=== PATIENT | male | born 1985 | race Caucasian/White ===

== ENCOUNTER 2017-02-03 17:17 | Emergency (ER) | payer OTHER ==
[2017-02-03 17:23] VITALS: BP 127/74; PULSE 92; TEMP 98.2; BMI 34.7
--- NOTE | 2017-02-03 17:24 | PDOC ---
Rapid Medical Evaluation Time Seen by Provider: 02/03/17 17:20 Medical Evaluation: 02/03/17 17:20 I have performed a brief in-person evaluation of this patient. The patient presents with a chief complaint of: fever, sore throat and cough x 4 days. Family members w/ similar sxs at home. H/o HTN and seizures Pertinent physical exam findings:Stable w/ unremarkable exam I have ordered the following:nothing The patient will proceed to the ED for further evaluation.
--- NOTE | 2017-02-03 18:30 | PDOC ---
History of Present Illness - General Chief Complaint: Sore Throat Stated Complaint: PAIN/FEVER Time Seen by Provider: 02/03/17 17:20 History Source: Patient Exam Limitations: No Limitations - History of Present Illness Initial Comments: 02/03/17 18:25 31 yr male with c/o sore throat and body aches for 4 days pt states family members with same symptoms. no abd pain no coughing. took tylenol earlier today and theraflu. Timing/Duration: other (3-4 days) Severity: mild Past History - Past Medical History Allergies/Adverse Reactions: Allergies Allergy/AdvReac Type Severity Reaction Status Date / Time Penicillins Allergy Verified 02/03/17 17:24 Home Medications: Ambulatory Orders Azithromycin [Zithromax 250mg Tablets -] 250 mg PO UTDICT #6 tab 02/03/17 COPD: No HTN: Yes Seizures: Yes - Suicide/Smoking/Psychosocial Hx Smoking History: Never smoked Hx Alcohol Use: No Drug/Substance Use Hx: No Review of Systems - Review of Systems Able to Perform ROS?: Yes Is the patient limited Russian proficient: No Constitutional: Yes: Symptoms Reported, Fever HEENTM: Yes: Symptoms Reported, Throat Pain Respiratory: No: Symptoms reported Cardiac (ROS): No: Symptoms Reported ABD/GI: No: Symptoms Reported : No: Symptoms Reported Musculoskeletal: No: Symptoms Reported Integumentary: No: Symptoms Reported Neurological: No: Symptoms reported *Physical Exam - Vital Signs Last Vital Signs Temp Pulse Resp BP Pulse Ox 98.2 F 92 H 20 127/74 99 02/03/17 17:20 02/03/17 17:20 02/03/17 17:20 02/03/17 17:20 02/03/17 17:20 - Physical Exam General Appearance: Yes: Nourished, Appropriately Dressed HEENT: positive: EOMI, ALYSHA, TMs Normal, Pharyngeal Erythema, Tonsillar Erythema. negative: Tonsillar Exudate Neck: positive: Supple, Lymphadenopathy (R) Respiratory/Chest: positive: Lungs Clear, Normal Breath Sounds. negative: Chest Tender Cardiovascular: positive: Regular Rhythm, Regular Rate Gastrointestinal/Abdominal: positive: Normal Bowel Sounds, Soft Musculoskeletal: positive: Normal Inspection Extremity: positive: Normal Capillary Refill, Normal Inspection, Normal Range of Motion Integumentary: positive: Normal Color, Dry, Warm Neurologic: positive: Fully Oriented, Alert, Normal Mood/Affect, Normal Response , Motor Strength 07/10 Medical Decision Making - Medical Decision Making 02/03/17 18:28 cc: sore throat body aches for 4 days diff swallowing family members with same symptoms *DC/Admit/Observation/Transfer Diagnosis at time of Disposition: Strep throat - Discharge Dispostion Disposition: HOME Condition at time of disposition: Good - Prescriptions Prescriptions: Azithromycin [Zithromax 250mg Tablets -] 250 mg PO UTDICT #6 tab - Referrals - Patient Instructions Additional Instructions: gargle with warm salt water 4-5 times a day take the antibiotics as directed take motrin 600mg (over the counter advil, motrin or ibuprofen) as needed for fever and pain avoid sharing cups, utensils, close contacts throw out toothbrush at end of treatment follow with your doctor if any worsening symptoms - Post Discharge Activity
== END 2017-02-03 19:06 | disposition home or self-care (01) ==
LOC: JERFT 17:17
DX: J02.0 Streptococcal pharyngitis (principal); B95.0 Streptococcus, group A, as the cause of diseases classified elsewhere; I10 Essential (primary) hypertension; Z86.69 Personal history of other diseases of the nervous system and sense organs
CPT/HCPCS: 87070; 87430; 99281-25

== ENCOUNTER 2017-04-08 00:14 | Emergency (ER) | payer SELFPAY ==
[2017-04-08 00:50] VITALS: BMI 33.9
--- NOTE | 2017-04-08 01:46 | PDOC ---
History of Present Illness - General Chief Complaint: Pain Stated Complaint: PAIN Time Seen by Provider: 04/08/17 01:30 History Source: Patient Exam Limitations: No Limitations - History of Present Illness Initial Comments: 04/08/17 01:40 The patient is a 31M with a PMH of HTN and seizures who presents to the ER with chest pain. The patient states that he has had constant chest pain since yesterday afternoon which feels like soreness, is located on his L anterior chest, parasternally, is worse with breathing, and radiates to his L clavicle. He was sitting at his desk when the pain onset. It has stayed the same but has been constant. He denies any changes with movement or food. He has not had pain like this before. He denies SOB, fevers, chills, palpitations, lightheadedness. Past History - Past Medical History Allergies/Adverse Reactions: Allergies Allergy/AdvReac Type Severity Reaction Status Date / Time Penicillins Allergy Verified 04/08/17 00:27 Home Medications: Ambulatory Orders Divalproex *ER* [Depakote *ER* -] 500 mg PO TID 04/08/17 Lisinopril 5 mg PO DAILY 04/08/17 Phenobarbital 97.2 mg PO DAILY 04/08/17 COPD: No HTN: Yes Seizures: Yes - Suicide/Smoking/Psychosocial Hx Smoking History: Never smoked Have you smoked in the past 12 months: No Information on smoking cessation initiated: No Hx Alcohol Use: No Drug/Substance Use Hx: No Review of Systems - Review of Systems Able to Perform ROS?: Yes Comments:: 04/08/17 01:44 GENERAL/CONSTITUTIONAL: No fever or chills. No weakness. HEAD, EYES, EARS, NOSE AND THROAT: No change in vision. No ear pain or discharge. No sore throat. CARDIOVASCULAR: Positive for chest soreness. No palpitations or lightheadedness. RESPIRATORY: No cough, wheezing, shortness of breath, or hemoptysis. GASTROINTESTINAL: No nausea, vomiting, diarrhea, constipation, or abdominal pain. GENITOURINARY: No dysuria, frequency, hematuria, or change in urination. MUSCULOSKELETAL: No joint or muscle swelling or pain. No neck or back pain. SKIN: No rash or lesions. NEUROLOGIC: No headache, numbness, tingling, weakness, loss of consciousness, or change in strength/sensation. ENDOCRINE: No increased thirst. No abnormal weight change. HEMATOLOGIC/LYMPHATIC: No anemia, easy bleeding, or history of blood clots. ALLERGIC/IMMUNOLOGIC: No hives or skin allergy. Is the patient limited Peruvian proficient: No *Physical Exam - Vital Signs Last Vital Signs Temp Pulse Resp BP Pulse Ox 98.1 F 85 18 144/86 99 04/08/17 00:27 04/08/17 00:27 04/08/17 00:27 04/08/17 00:27 04/08/17 00:27 - Physical Exam Comments: 04/08/17 01:46 GENERAL: Well developed, well nourished. Awake and alert. No acute distress. HEENT: Normocephalic, atraumatic. Hearing grossly normal. Moist mucous membranes. PERRLA, EOMI. No conjunctival pallor. Sclera are non-icteric. NECK: Supple. Full ROM. No JVD. CARDIOVASCULAR: Reproducible pain and tenderness to palpation over L parasternal border to clavicle. Regular rate and rhythm. No murmurs, rubs, or gallops. PULMONARY: No evidence of respiratory distress. Lungs clear to auscultation bilaterally. No wheezing, rales or rhonchi. ABDOMINAL: Soft. Non-tender. Non-distended. No rebound or guarding. GENITOURINARY: No CVA tenderness bilaterally. MUSCULOSKELETAL: Normal range of motion at all joints. No bony deformities or tenderness. EXTREMITIES: No cyanosis. No clubbing. No edema. No calf tenderness. SKIN: Warm and dry. Normal capillary refill. No rashes. No jaundice. NEUROLOGICAL: Alert, awake, appropriate. Cranial nerves 2-12 intact. Normal speech. Gait is normal without ataxia. PSYCHIATRIC: Cooperative. Good eye contact. Appropriate mood and affect. ED Treatment Course - LABORATORY CBC & Chemistry Diagram: 04/08/17 02:57 04/08/17 02:57 - RADIOLOGY Radiology Studies Ordered: Category Date Time Status CHEST PA & LAT [RAD] Stat Radiology 04/08/17 01:39 Ordered Medical Decision Making - Medical Decision Making 04/08/17 01:48 The patient is a 31M with a PMH of HTN and seizures who presents to the ER with atypical CP. The patient's pain is reproducible on palpation. EKG is NSR. Will order CXR. With an unremarkable physical exam, normal EKG, and normal XR, I will give the patient toradol for pain relief. Pending imaging and labs. 04/08/17 05:35 Pt states he feels a little better and is ready for d/c w/ f/u. *DC/Admit/Observation/Transfer Diagnosis at time of Disposition: Atypical chest pain - Discharge Dispostion Disposition: HOME Condition at time of disposition: Stable Admit: No - Referrals Referrals: Lemuel Gooden MD [Staff Physician] - - Patient Instructions Printed Discharge Instructions: DI for Costochondritis Additional Instructions: Please return to the ER if symptoms persist, worsen, or new symptoms arise. Please follow up with Dr. Gooden in 2-3 days. Please return to the ER if you have any signs or symptoms of chest pain, shortness of breath, uncontrollable fever, chills, nausea, vomiting, numbness, tingling, or weakness in any part of your body, changes in vision, or slurred speech. - Post Discharge Activity
--- NOTE | 2017-04-08 02:31 | PDOC ---
Attending Attestation - Resident Resident Name: Mac Rae
[2017-04-08] MEDS ORDERED: KETOROLAC TROMETHAMINE 30 MG/1 ML VIAL IVPUSH ONE (02:41)
[2017-04-08] MEDS ORDERED: SODIUM CHLORIDE 0.9% 1000 ML INFUS.BAG IV STA (02:47)
[2017-04-08] MEDS ORDERED: KETOROLAC TROMETHAMINE 30 MG/1 ML VIAL ONE (02:48)
[2017-04-08 03:31] LABS: BASO % 0.8 % (0-2.0); EOS % 1.8 % (0-4.5); HEMATOCRIT 40.6 % (35.4-49); HEMOGLOBIN 13.9 GM/dL (11.7-16.9); LYMPH % 43.8 % (8-40); MCH 30.4 pg (25.7-33.7); MCHC 34.1 g/dl (32.0-35.9); MEAN CELL VOLUME 89.1 fl (80-96); MEAN PLT VOLUME 7.9 fl (7.5-11.1); MONO % 8.7 % (3.8-10.2); NEUT % 44.9 % (42.8-82.8); PLATELET COUNT 235 K/MM3 (134-434); RBC 4.56 M/mm3 (4.00-5.60); RDW 14.5 % (11.9-15.9); WHITE BLOOD COUNT 9.4 K/mm3 (4.0-10.0)
[2017-04-08 04:00] LABS: ALBUMIN 3.8 g/dl (3.4-5.0); ANION GAP 5 (8-16); BILIRUBIN,TOTAL 0.2 mg/dL (0.2-1.0); BLOOD UREA NITROGEN 15 mg/dL (7-18); CALCIUM 8.8 mg/dL (8.5-10.1); CHLORIDE 102 mmol/L (98-107); CO2 32 mmol/L (21-32); CREATININE 0.8 mg/dL (0.7-1.3); GLUCOSE,RANDOM 104 mg/dL (74-106); POTASSIUM 4.4 mmol/L (3.5-5.1); SGOT/AST 9 U/L (15-37); SGPT/ALT 22 U/L (12-78); SODIUM 139 mmol/L (136-145); TOT PROT 8.1 g/dl (6.4-8.2)
[2017-04-08 04:03] LABS: ALK PHOS 103 U/L (45-117)
[2017-04-08 05:56] VITALS: BP 120/69; PULSE 78; TEMP 98.2
--- NOTE | 2017-04-08 10:58 | EKG ---
Test Reason : Blood Pressure : / mmHG Vent. Rate : 079 BPM Atrial Rate : 079 BPM P-R Int : 148 ms QRS Dur : 102 ms QT Int : 372 ms P-R-T Axes : 052 052 027 degrees QTc Int : 426 ms NORMAL SINUS RHYTHM NORMAL ECG NO PREVIOUS ECGS AVAILABLE Confirmed by AYLEEN ZHANG MD ([id number]) on 04/08/2017 10:58:42 AM Referred By: Confirmed By:AYLEEN ZHANG MD
== END 2017-04-08 05:56 | disposition home or self-care (01) ==
LOC: JER 00:14
PROC: 3E0333Z Introduction of Anti-inflammatory into Peripheral Vein, Percutaneous Approach (ICD-10-PCS; principal; 2017-04-08)
DX: R07.89 Other chest pain (principal); I10 Essential (primary) hypertension; G40.909 Epilepsy, unspecified, not intractable, without status epilepticus
CPT/HCPCS: 36415; 71046-TC-FY; 80053; 82550; 84484; 85025; 85379; 93005; 93010; 99281-25

== ENCOUNTER 2018-05-17 21:40 | Emergency (ER) | payer OTHER ==
[2018-05-17 21:45] VITALS: BP 133/79; PULSE 83; TEMP 97.5; BMI 35.5
--- NOTE | 2018-05-17 21:45 | PDOC ---
Rapid Medical Evaluation Time Seen by Provider: 05/17/18 21:42 Medical Evaluation: Allergies Allergy/AdvReac Type Severity Reaction Status Date / Time Penicillins Allergy Verified 04/08/17 00:27 05/17/18 21:43 I have performed a brief in-person evaluation of this patient. The patient presents with a chief complaint of:Right sided Chest pain x2 days Pertinent physical exam findings: No chest tenderness. Lungs CTAB. I have ordered the following: ekg, labs, urine, CXR The patient will proceed to the ED for further evaluation. 05/17/18 21:44 Discharge Disposition - Diagnosis Chest pain - Referrals - Patient Instructions - Post Discharge Activity
[2018-05-17 22:12] LABS: BASO % 0.8 % (0-2.0); EOS % 1.9 % (0-4.5); HEMOGLOBIN 14.9 GM/dL (11.7-16.9); LYMPH % 35.4 % (8-40); MCHC 35.6 g/dl (32.0-35.9); MEAN PLT VOLUME 7.6 fl (7.5-11.1); MONO % 7.5 % (3.8-10.2); NEUT % 54.4 % (42.8-82.8); PLATELET COUNT 269 K/MM3 (134-434); RBC 4.82 M/mm3 (4.00-5.60); RDW 13.6 % (11.9-15.9)
[2018-05-17 22:24] LABS: INR 1.01 (0.83-1.09); PROTHROMBIN TIME (PATIENT) 11.9 SEC (9.7-13.0)
[2018-05-17 22:44] LABS: ALBUMIN 3.8 g/dl (3.4-5.0); ALK PHOS 122 U/L (45-117); ANION GAP 7 MMOL/L (8-16); BILIRUBIN,TOTAL 0.4 mg/dL (0.2-1); BLOOD UREA NITROGEN 16 mg/dL (7-18); CHLORIDE 102 mmol/L (98-107); CO2 30 mmol/L (21-32); CREATININE 0.8 mg/dL (0.55-1.3); GLUCOSE,RANDOM 120 mg/dL (74-106); MAGNESIUM 2.2 mg/dL (1.8-2.4); POTASSIUM 4.5 mmol/L (3.5-5.1); SGOT/AST 31 U/L (15-37); SGPT/ALT 51 U/L (13-61); SODIUM 138 mmol/L (136-145); TOT PROT 8.2 g/dl (6.4-8.2)
--- NOTE | 2018-05-18 00:03 | PDOC ---
*Physical Exam - Vital Signs Last Vital Signs Temp Pulse Resp BP Pulse Ox 97.5 F L 83 16 133/79 100 05/17/18 21:43 05/17/18 21:43 05/17/18 21:43 05/17/18 21:43 05/17/18 21:43 ED Treatment Course - LABORATORY CBC & Chemistry Diagram: 05/17/18 22:02 05/17/18 22:02 - ADDITIONAL ORDERS Additional order review: Laboratory Results 05/17/18 05/17/18 22:02 22:02 PT with INR 11.90 INR 1.01 Sodium 138 Potassium 4.5 Chloride 102 Carbon Dioxide 30 Anion Gap 7 L BUN 16 Creatinine 0.8 Creat Clearance w eGFR > 60 Random Glucose 120 H Calcium 9.0 Magnesium 2.2 Total Bilirubin 0.4 AST 31 ALT 51 Alkaline Phosphatase 122 H Creatine Kinase 117 Troponin I < 0.02 Total Protein 8.2 Albumin 3.8 05/17/18 22:02 RBC 4.82 MCV 87.0 MCHC 35.6 RDW 13.6 MPV 7.6 Neutrophils % 54.4 D Lymphocytes % 35.4 Monocytes % 7.5 Eosinophils % 1.9 Basophils % 0.8 Medical Decision Making - Medical Decision Making 05/18/18 00:03 Patient seen by the advanced practice provider under my direct supervision. Ancillary testing reviewed as necessary. I agree with plan as outlined by the advanced practice provider. *DC/Admit/Observation/Transfer Diagnosis at time of Disposition: Chest pain - Referrals - Patient Instructions - Post Discharge Activity
--- NOTE | 2018-05-18 01:01 | PDOC ---
History of Present Illness - General Chief Complaint: Chest Pain Stated Complaint: CHEST PAIN Time Seen by Provider: 05/17/18 21:42 History Source: Patient Exam Limitations: No Limitations Past History - Past Medical History Allergies/Adverse Reactions: Allergies Allergy/AdvReac Type Severity Reaction Status Date / Time Penicillins Allergy Verified 05/17/18 21:46 Home Medications: Ambulatory Orders Divalproex *ER* [Depakote *ER* -] 500 mg PO TID 04/08/17 Lisinopril 5 mg PO DAILY 04/08/17 Phenobarbital 97.2 mg PO DAILY 04/08/17 COPD: No HTN: Yes Seizures: Yes - Immunization History Immunization Up to Date: Yes - Suicide/Smoking/Psychosocial Hx Smoking History: Never smoked Have you smoked in the past 12 months: No Information on smoking cessation initiated: No Hx Alcohol Use: No Drug/Substance Use Hx: No *Physical Exam - Vital Signs Last Vital Signs Temp Pulse Resp BP Pulse Ox 97.5 F L 83 16 133/79 100 05/17/18 21:43 05/17/18 21:43 05/17/18 21:43 05/17/18 21:43 05/17/18 21:43 - Physical Exam General Appearance: No: Apparent Distress Respiratory/Chest: positive: Lungs Clear, Normal Breath Sounds. negative: Chest Tender, Respiratory Distress Cardiovascular: positive: Regular Rhythm, Regular Rate, S1, S2. negative: Murmur Gastrointestinal/Abdominal: positive: Normal Bowel Sounds, Soft. negative: Tender, Distended, Guarding, Rebound Extremity: negative: Pedal Edema, Calf Tenderness Integumentary: positive: Normal Color. negative: Swelling Neurologic: positive: Fully Oriented, Alert, Normal Mood/Affect Moderate Sedation - Procedure Monitoring Vital Signs: Procedure Monitoring Vital Signs Temperature 97.5 F L 05/17/18 21:43 Pulse Rate 83 05/17/18 21:43 Respiratory Rate 16 05/17/18 21:43 Blood Pressure 133/79 05/17/18 21:43 O2 Sat by Pulse Oximetry (%) 100 05/17/18 21:43 ED Treatment Course - LABORATORY CBC & Chemistry Diagram: 05/17/18 22:02 05/17/18 22:02 - ADDITIONAL ORDERS Additional order review: Laboratory Results 05/17/18 05/17/18 22:02 22:02 PT with INR 11.90 INR 1.01 Sodium 138 Potassium 4.5 Chloride 102 Carbon Dioxide 30 Anion Gap 7 L BUN 16 Creatinine 0.8 Creat Clearance w eGFR > 60 Random Glucose 120 H Calcium 9.0 Magnesium 2.2 Total Bilirubin 0.4 AST 31 ALT 51 Alkaline Phosphatase 122 H Creatine Kinase 117 Troponin I < 0.02 Total Protein 8.2 Albumin 3.8 05/17/18 22:02 RBC 4.82 MCV 87.0 MCHC 35.6 RDW 13.6 MPV 7.6 Neutrophils % 54.4 D Lymphocytes % 35.4 Monocytes % 7.5 Eosinophils % 1.9 Basophils % 0.8 Medical Decision Making - Medical Decision Making 32 y/o M with hx of sciatica, seizures, HTN presents with sharp/stabbing CP that started yesterday at rest. States pain can be R sided or L sided and is nonradiating. Pain is intermittent in nature and not worsened or relieved by anything. Pain can be worse with inspiration. Denies fever, URI sxs, cough, sob , abd pain, n/v, dizziness, palpitations. Denies smoking or drug use. Mentions his mother had ID at age 60 EKG: NSR 83 bpm, no ST-T changes CXR wet read negative Labs reviewed and unremarkable PERC negative Unlikely ACS (patient with heart score of 1) Stable for dc 05/18/18 00:57 *DC/Admit/Observation/Transfer Diagnosis at time of Disposition: Chest pain Qualifiers: Chest pain type: other chest pain Qualified Code(s): R07.89 - Other chest pain ; R07.8 - Other chest pain - Discharge Dispostion Disposition: HOME Condition at time of disposition: Stable Decision to Admit order: No - Referrals Referrals: Porter Black MD [Staff Physician] - 2 Days - Patient Instructions Printed Discharge Instructions: DI for Chest Pain Additional Instructions: Thank you for choosing Health system. It was a pleasure taking care of you. Your labs, EKG and chest xray were unremarkable Follow-up in primary care clinic for further evaluation Return to the Emergency Department if your symptoms worsen or persist or have other concerning symptoms. - Post Discharge Activity
--- NOTE | 2018-05-18 11:05 | EKG ---
Test Reason : Blood Pressure : / mmHG Vent. Rate : 083 BPM Atrial Rate : 083 BPM P-R Int : 158 ms QRS Dur : 112 ms QT Int : 364 ms P-R-T Axes : 065 061 038 degrees QTc Int : 427 ms NORMAL SINUS RHYTHM NORMAL ECG WHEN COMPARED WITH ECG OF 08-APR-2017 01:40, NO SIGNIFICANT CHANGE WAS FOUND Confirmed by BRIELLE GASCA MD ([id number]) on 05/18/2018 11:04:58 AM Referred By: Confirmed By:BRIELLE GASCA MD
== END 2018-05-18 01:24 | disposition home or self-care (01) ==
LOC: JER 21:40
DX: R07.89 Other chest pain (principal); I10 Essential (primary) hypertension; G40.909 Epilepsy, unspecified, not intractable, without status epilepticus; Z88.0 Allergy status to penicillin
CPT/HCPCS: 36415; 71046-TC-FY; 80053; 82550; 83735; 84484; 85025; 85610; 93005; 93010; 99283-25

== ENCOUNTER 2018-10-12 20:45 | Emergency (ER) | payer OTHER ==
[2018-10-12 20:49] VITALS: BP 144/92; PULSE 72; TEMP 97.7; BMI 33.9
--- NOTE | 2018-10-12 22:12 | PDOC ---
History of Present Illness - General Chief Complaint: Pain Stated Complaint: abdominal discomfort radiating to testicles Time Seen by Provider: 10/12/18 20:59 History Source: Patient Exam Limitations: No Limitations - History of Present Illness Initial Comments: 10/12/18 22:32 33M w/ pmh of HTN(stopped taking his lisinopril), seizures(last seizure 12ys prior, stopped meds 2ys prior) presents w/ complaint of diffuse crampy abdominal discomfort 5/10 severity with radiation to b/l testicles x3d. Was concerned that this discomfort did not improve. Pain is worse in the morning when waking up and with prolonged sitting. Improved after walking and taking ASA. Denies dysuria, urinary frequency, penile discharge, abdominal bulge, groin bulge, NV. Last intercourse was 2ys prior, was nonbarrier with at the time. Denies masturbation in last 2ys. Denies h/o STD. Timing/Duration: other (3d) Severity: mild Associated Symptoms: denies: chest pain, cough Past History - Travel Traveled outside of the country in the last 30 days: No Close contact w/someone who was outside of country & ill: No - Past Medical History Allergies/Adverse Reactions: Allergies Allergy/AdvReac Type Severity Reaction Status Date / Time Penicillins Allergy Verified 10/12/18 20:49 Home Medications: Ambulatory Orders Divalproex *ER* [Depakote *ER* -] 500 mg PO TID 04/08/17 Lisinopril 5 mg PO DAILY 04/08/17 Phenobarbital 97.2 mg PO DAILY 04/08/17 COPD: No HTN: Yes Seizures: Yes - Surgical History Abdominal Surgery: No - Family Disease History Comment:: 10/12/18 22:38 noncontributory to current symptoms - Immunization History Immunization Up to Date: Yes - Suicide/Smoking/Psychosocial Hx Smoking History: Never smoked Have you smoked in the past 12 months: No Hx Alcohol Use: No Drug/Substance Use Hx: No Review of Systems - Review of Systems Able to Perform ROS?: Yes Is the patient limited Burmese proficient: No Constitutional: Yes: Other (weight loss with diet ). No: Chills, Diaphoresis, Fever Respiratory: No: Cough, Orthopnea, Shortness of Breath Cardiac (ROS): No: Chest Pain, Irregular Heart Rate, Palpitations ABD/GI: Yes: Abdominal Distended. No: Constipated, Diarrhea, Nausea, Poor Appetite : No: Burning, Dysuria, Hematuria, Pain Musculoskeletal: No: Muscle Weakness Neurological: No: Headache, Dizziness *Physical Exam - Vital Signs Last Vital Signs Temp Pulse Resp BP Pulse Ox 97.7 F 72 18 144/92 99 10/12/18 20:47 10/12/18 20:47 10/12/18 20:47 10/12/18 20:47 10/12/18 20:47 - Physical Exam General Appearance: Yes: Obese. No: Appropriately Dressed, Apparent Distress HEENT: negative: Pale Conjunctivae, Scleral Icterus (R), Scleral Icterus (L) Neck: positive: Supple. negative: Lymphadenopathy (R), Lymphadenopathy (L) Respiratory/Chest: positive: Lungs Clear, Normal Breath Sounds Cardiovascular: positive: Regular Rate, S1, S2. negative: JVD, Murmur Gastrointestinal/Abdominal: positive: Soft, Protuberent, Other (illicits "discomfort"). negative: Tenderness, Mass Male Genitalia: positive: other (brisk Cremaster reflex, no perineal tenderness) . negative: testicular tenderness, testicular mass, epididymus tender, inguinal hernia Lymphatic: negative: Adenopathy Extremity: negative: Swelling, Calf Tenderness Neurologic: positive: Fully Oriented, Alert ED Treatment Course - LABORATORY CBC & Chemistry Diagram: 10/12/18 22:10 10/12/18 22:10 - RADIOLOGY Radiology Studies Ordered: Category Date Time Status SPIRAL- RENAL-STONE CT [CT] Stat CT Scan 10/12/18 21:58 Ordered Medical Decision Making - Medical Decision Making 10/12/18 22:44 33M w/ pmh of HTN, seizures presenting with diffuse abdominal "discomfortness" in abd and testicles. Benign exam but possible early nephrolithiasis, UTI, STI, hernia. - fu CT spiral abd to r/o nephrolithiasis - fu CBC, CMP, UA 10/13/18 02:51 - CT spiral: neg for nephrolithiasis. 2.5cm hyperdensity of Right lobe of liver. Rad recommending liver protocol MRI - UA neg - CBC, CMP neg - US scrotum: neg for testicular torsion, unremarkable epididymides, b/l hydroceles - patient stable for discharge w/ close interval fu for liver lesion *DC/Admit/Observation/Transfer Diagnosis at time of Disposition: Liver mass - Discharge Dispostion Disposition: HOME Condition at time of disposition: Good - Referrals Referrals: [facility] [place] [facility] [place] [Provider Group] - Patient Instructions Printed Discharge Instructions: DI for Prescription Opioid Use Additional Instructions: Your workup today showed a mass on your liver that requires further imaging. Please follow up with the primary care physician below tomorrow morning. You can call to make an appointment or walk-in. Please return to the ED if you have any new, worsening or concerning symptoms, especially increasing pain, fever and vomiting. - Post Discharge Activity
[2018-10-12 22:23] LABS: BASO % 0.9 % (0-2.0); EOS % 1.9 % (0-4.5); HEMATOCRIT 41.9 % (35.4-49); HEMOGLOBIN 14.4 GM/dL (11.7-16.9); LYMPH % 41.6 % (8-40); MCH 29.9 pg (25.7-33.7); MCHC 34.3 g/dl (32.0-35.9); MEAN CELL VOLUME 87.3 fl (80-96); MEAN PLT VOLUME 7.2 fl (7.5-11.1); MONO % 9.6 % (3.8-10.2); PLATELET COUNT 284 K/MM3 (134-434); RBC 4.79 M/mm3 (4.00-5.60); RDW 13.4 % (11.9-15.9); WHITE BLOOD COUNT 8.2 K/mm3 (4.0-10.0)
[2018-10-12 22:52] LABS: ALBUMIN 4.2 g/dl (3.4-5.0); BILIRUBIN,TOTAL 0.5 mg/dL (0.2-1); BLOOD UREA NITROGEN 5.1 mg/dL (7-18); CALCIUM 9.7 mg/dL (8.5-10.1); CREATININE 0.7 mg/dL (0.55-1.3); POTASSIUM 4.2 mmol/L (3.5-5.1); TOT PROT 8.4 g/dl (6.4-8.2)
[2018-10-13 00:02] LABS: PH,URINE 6.5 (5.0-8.0); URINE APPEARANCE CLEAR; URINE BILIRUBIN NEGATIVE (NEGATIVE); URINE COLOR YELLOW; URINE GLUCOSE (UA) NEGATIVE (NEGATIVE); URINE KETONE NEGATIVE (NEGATIVE); URINE LEUK ESTERASE NEGATIVE (NEGATIVE); URINE NITRITE NEGATIVE (NEGATIVE); URINE PROTEIN NEGATIVE (NEGATIVE); URINE UROBILINOGEN 0.2 mg/dL (0.2-1.0)
--- NOTE | 2018-10-13 00:51 | PDOC ---
Documentation entered by Garret Brown SCRIBE, acting as scribe for Cindy Ordoñez DO. Cindy Ordoñez DO: This documentation has been prepared by the Kevin sapp Aiswarya, SCRIBE, under my direction and personally reviewed by me in its entirety. I confirm that the documentation accurately reflects all work, treatment, procedures, and medical decision making performed by me. Attending Attestation - Resident Resident Name: HugoJac - ED Attending Attestation I have performed the following: I have examined & evaluated the patient, The case was reviewed & discussed with the resident, I agree w/resident's findings & plan - HPI HPI: 10/12/18 23:31 The patient is a 33 year old male, with a significant PMH of seizures and HTN, who presents to the emergency department with diffuse abdominal pain that began 3 days ago. The patient states intermittent abdominal pain radiates down to the testicles with a severity of 5/10. The patient denies chest pain, shortness of breath, headache and dizziness. Denies prior testicular pain. Allergies:Penicillin Past surgical history: None reported Social history: None reported PCP: None reported - Physicial Exam PE: 10/12/18 23:31 Agrees with residents PE - Medical Decision Making 10/13/18 02:52 33 yo male with abd fullness and testicular pain CT abd/pelvis shows liver lesion, possible mass US scrotum negative for sig abnormalities pt set up for prompt OP follow up in the clinic in the morning pt advised he will need an MRI for further evaluation and agrees to follow up as discussed
--- NOTE | 2018-10-13 02:33 | PDOC ---
*Physical Exam - Vital Signs Last Vital Signs Temp Pulse Resp BP Pulse Ox 97.7 F 72 18 144/92 99 10/12/18 20:47 10/12/18 20:47 10/12/18 20:47 10/12/18 20:47 10/12/18 20:47 ED Treatment Course - LABORATORY CBC & Chemistry Diagram: 10/12/18 22:10 10/12/18 22:10 - ADDITIONAL ORDERS Additional order review: Laboratory Results 10/12/18 10/12/18 10/12/18 23:45 22:10 22:10 Sodium 140 Potassium 4.2 Chloride 104 Carbon Dioxide 32 Anion Gap 4 L BUN 5.1 L Creatinine 0.7 Est GFR (CKD-EPI)AfAm 142.70 Est GFR (CKD-EPI)NonAf 123.13 Random Glucose 95 Calcium 9.7 Total Bilirubin 0.5 AST 36 ALT 67 H Alkaline Phosphatase 117 Total Protein 8.4 H Albumin 4.2 Lipase 110 Urine Color Yellow Urine Appearance Clear Urine pH 6.5 Ur Specific [place] 1.007 L Urine Protein Negative Urine Glucose (UA) Negative Urine Ketones Negative Urine Blood Negative Urine Nitrite Negative Urine Bilirubin Negative Urine Urobilinogen 0.2 Ur Leukocyte Esterase Negative 10/12/18 22:10 RBC 4.79 MCV 87.3 MCHC 34.3 RDW 13.4 MPV 7.2 L Neutrophils % 46.0 Lymphocytes % 41.6 H Monocytes % 9.6 Eosinophils % 1.9 Basophils % 0.9 Medical Decision Making - Medical Decision Making 10/13/18 02:30 Discussed plan to follow up liver mass with patient, as he does not have pcp and inpatient admission is not necessary. Importance of follow up stressed. Patient has outpatient insurance and will be able to get done as an outpatient, will walk in to clinic tomorrow. Given return precautions. Will discharge. *DC/Admit/Observation/Transfer Diagnosis at time of Disposition: Liver mass - Discharge Dispostion Disposition: HOME Condition at time of disposition: Good Decision to Admit order: No - Referrals Referrals: [facility] [place] [Provider Group] - Patient Instructions Additional Instructions: Your workup today showed a mass on your liver that requires further imaging. Please follow up with the primary care physician below tomorrow morning. You can call to make an appointment or walk-in. Please return to the ED if you have any new, worsening or concerning symptoms, especially increasing pain, fever and vomiting. - Post Discharge Activity
== END 2018-10-13 02:46 | disposition home or self-care (01) ==
LOC: JER 20:45
DX: R16.0 Hepatomegaly, not elsewhere classified (principal); I10 Essential (primary) hypertension; Z86.69 Personal history of other diseases of the nervous system and sense organs; Z91.14 Patient's other noncompliance with medication regimen
CPT/HCPCS: 36415; 74176-TC; 76870-TC; 80053; 81003; 83690; 85025; 87086; 87491; 87591; 99283-25

== ENCOUNTER 2019-12-06 11:21 | Day surgery (SDC) | payer OTHER ==
--- OUTSIDE RECORDS SUMMARY | 2019-11-22 09:26 | XMS ---
:1985 Author Organization [facility] Care Team Providers Name Role Phone Androne, Chari S Unavailable Unavailable Androne, S Unavailable Unavailable Androne, S Unavailable Unavailable Androne, S Unavailable Unavailable Androne, S Unavailable Unavailable Androne, S Unavailable Unavailable Androne, S Unavailable Unavailable Androne, S Unavailable Unavailable Erosa Unavailable Erosa Unavailable Lufrano Unavailable Unavailable Lufrano Unavailable Unavailable Lufrano Unavailable Unavailable Lufrano Unavailable Unavailable Lufrano Unavailable Unavailable Lufrano Unavailable Unavailable Lufrano Unavailable Unavailable Re-disclosure Warning The records that you are about to access may contain information from federally- assisted alcohol or drug abuse programs. If such information is present, then the following federally mandated warning applies: This information has been disclosed to you from records protected by federal confidentiality rules (42 CFR part 2). The federal rules prohibit you from making any further disclosure of this information unless further disclosure is expressly permitted by the written consent of the person to whom it pertains or as otherwise permitted by 42 CFR part 2. A general authorization for the release of medical or other information is NOT sufficient for this purpose. The Federal rules restrict any use of the information to criminally investigate or prosecute any alcohol or drug abuse patient.The records that you are about to access may contain highly sensitive health information, the redisclosure of which is protected by Article 27-F of the [facility] Public Health law. If you continue you may haveaccess to information: Regarding HIV / AIDS; Provided by facilities licensed or operated by the [facility] Office of Mental Health; or Provided by the [facility] Office for People With Developmental Disabilities. If such information is present, then the following [facility] mandated warning applies: This information has been disclosed to you from confidential records which are protected by state law. State law prohibits you from making any further disclosure of this information without the specific written consent of the person to whom it pertains, or as otherwise permitted by law. Any unauthorized further disclosure in violation of state law may result in a fine or halfway sentence or both. A general authorization for the release of medical or other information is NOT sufficient authorization for further disclosure. Allergies and Adverse Reactions Type Description Substance Reaction Status Data Source(s ) Drug allergy penicillin Penicillin G Active [facility] ([facility], ) Encounters Encounter Providers Location Date Indications Data Source(s ) Attender: Elba 11/20/2019 [facility] ([facility] frano 12:00:00 AM EDT Medical, ) Office Attender: Elba Pastrana 11/20/2019 12:00:00 AM EDT [facility] ([facility]) Office Attender: Elba Pastrana 11/20/2019 12:00:00 AM EDT [facility] ([facility]) Office Attender: Higinio Ghosh 10/26/2019 12:00:00 AM EDT [facility] ([place]) Office Attender: Chari Andshahida 10/25/2019 12:00:00 AM ED T [facility] ([facility], ) Office Attender: Chari Androne 10/25/2019 12:00:00 AM ED T [facility] ([place], ) Office Attender: Chari Androne 10/25/2019 12:00:00 AM ED T [facility] ([facility], ) Office Attender: Chari Androne 10/25/2019 12:00:00 AM ED T [facility] ([facility], ) Office Attender: Chari Androne 09/06/2019 12:00:00 AM ED T [facility] ([facility]) Office Attender: Chari Androne 09/06/2019 12:00:00 AM ED T [facility] ([facility]) Office Attender: Chari Androne 09/06/2019 12:00:00 AM ED T [facility] ([facility]) Office Attender: Chari Androne 09/06/2019 12:00:00 AM ED T [facility] ([facility]) Office Attender: Chari Androne 09/06/2019 12:00:00 AM ED T [facility] ([facility]) Office Attender: Chari Androne 08/23/2019 12:00:00 AM ED T [facility] ([facility]) Office Attender: Chari Androne 08/23/2019 12:00:00 AM ED T [facility] ([facility]) Office Attender: Chari Androne 08/23/2019 12:00:00 AM ED T [facility] ([facility]) Office Attender: Chari Androne 08/23/2019 12:00:00 AM ED T [facility] ([facility]) Office Attender: Chari Androne 08/23/2019 12:00:00 AM ED T [facility] ([facility]) Office Medications Medication Brand Start Product Dose Route Administrative Pharmacy [facility] Indications Reaction Description Data Name Date Form Instructions Instructions Source(s) pantoprazol PROTON 11/19/ DELAYED 30 complet PRO TONIX [facility] (St e 40 MG IX:[id number] 2019 RELEASE [facility] Delayed 400 12:00: TABLET Medical, Release 00 AM ) Oral Tablet EDT [Protonix] PROTONIX:28 4400 CLOBETASOL complet CLOBETASO L [facility] (St [facility]IONATE 2019 ed [facility] EXTERNAL 12:00: EXTERNAL Medic al, CREAM: 00 AM CREAM ) EDT CLOBETASOL complet CLOBETASO L [facility] (St PROPIONATE 2019 ed PROPIONATE [facility] n's EXTERNAL 12:00: EXTERNAL Medic al, CREAM: 00 AM CREAM ) EDT CLOBETASOL complet CLOBETASO L [facility] (St PROPIONATE 2019 ed PROPIONATE [facility] EXTERNAL 12:00: EXTERNAL Medic al, CREAM: 00 AM CREAM PC) EDT CLOBETASOL complet CLOBETASO L [facility] (St PROPIONATE 2019 ed PROPIONATE [facility] EXTERNAL 12:00: EXTERNAL Medic al, CREAM: 00 AM CREAM PC) EDT CLOBETASOL complet CLOBETASO L [facility] (St PROPIONATE 2019 ed PROPIONATE [facility] EXTERNAL 12:00: EXTERNAL Medic al, CREAM: 00 AM CREAM PC) EDT Insurance Providers Payer name Policy type Policy ID Covered Covered libertarian's Policy P nico / Coverage libertarian ID relationship to [place] Inf ormation type solano ROMAYOR [id number] 1 [id number] HEALTHCARE COMMUNITY PLAN [facility] [id number] HEALTHCARE COMMUNITY PLAN [place] MEDICA[place] OF [id number] [place] [id number] SP [id number] [place] [id number] SP [id number] HEALTHCARE PPO [place] MEDICAID [id number] SP [id number] [facility] PLAN [facility] [id number] CARE [facility] [id number] SP [id number] CARE HMO/POS/EPO SELF PAY SP [place]UR[place] [id number] SP [id number] [place] [id number] SP [id number] Problems, Conditions, and Diagnoses Code Display Name Description Problem Effective Data Type Dates Source(s) R10.13 Epigastric pain EPIGASTRIC PAIN Problem 11/20/2019 MEDG EN (St 12:00:00 AM [facility], ) M54.16 Radiculopathy, lumbar RADICULOPATHY, LUMBAR Problem [facility] ( region REGION 12:00:00 AM [facility], ) M54.16 Radiculopathy, lumbar RADICULOPATHY, LUMBAR Problem [facility] ( region REGION 12:00:00 AM [facility], ) E83.52 Hypercalcemia HYPERCALCEMIA Problem 10/25/2019 [facility] ( St 12:00:00 AM [facility], ) M54.5 Low back pain LOW BACK PAIN Problem 10/25/2019 [facility] ( St 12:00:00 AM [facility], ) K21.9 Gastro-esophageal GASTRO-ESOPHAGEAL Problem 10/25/2019 [facility] (St reflux disease REFLUX DISEASE 12:00:00 AM Rai' s without esophagitis WITHOUT ESOPHAGITIS [facility], ) I10 Essential (primary) ESSENTIAL (PRIMARY) Problem [facility] (St hypertension HYPERTENSION 12:00:00 AM [facility]) E83.52 Hypercalcemia HYPERCALCEMIA Problem 10/25/2019 [facility] ( St 12:00:00 AM [facility], ) M54.5 Low back pain LOW BACK PAIN Problem 10/25/2019 [facility] ( St 12:00:00 AM [facility], ) K21.9 Gastro-esophageal GASTRO-ESOPHAGEAL Problem 10/25/2019 [facility] (St reflux disease REFLUX DISEASE 12:00:00 AM Rai' s without esophagitis WITHOUT ESOPHAGITIS [facility], ) I10 Essential (primary) ESSENTIAL (PRIMARY) Problem [facility] (St hypertension HYPERTENSION 12:00:00 AM [facility], ) E83.52 Hypercalcemia HYPERCALCEMIA Problem 10/25/2019 [facility] ( St 12:00:00 AM [facility], ) M54.5 Low back pain LOW BACK PAIN Problem 10/25/2019 [facility] ( St 12:00:00 AM [facility], ) K21.9 Gastro-esophageal GASTRO-ESOPHAGEAL Problem 10/25/2019 [facility] (St reflux disease REFLUX DISEASE 12:00:00 AM Rai' s without esophagitis WITHOUT ESOPHAGITIS [facility], ) I10 Essential (primary) ESSENTIAL (PRIMARY) Problem [facility] (St hypertension HYPERTENSION 12:00:00 AM [facility]) R94.31 Abnormal ABNORMAL Problem 09/06/2019 [facility] (St electrocardiogram ELECTROCARDIOGRAM 12:00:00 AM [facility] [ECG] [EKG] [ECG] [EKG] [facility]) M79.675 Pain in left toe(s) PAIN IN LEFT TOE(S) Problem [facility] (St 12:00:00 AM [facility]) M79.674 Pain in right toe(s) PAIN IN RIGHT TOE(S) Problem 09/05 [facility] (St 12:00:00 AM [facility], ) K76.0 Fatty (change of) FATTY (CHANGE OF) Problem 09/06/2019 [facility] (St liver, not elsewhere LIVER, NOT ELSEWHERE 12:00 :00 AM [facility] classified [facility], ) E78.5 Hyperlipidemia, HYPERLIPIDEMIA, Problem 09/06/2019 MEDG EN (St unspecified UNSPECIFIED 12:00:00 AM [facility], ) L60.0 Ingrowing nail INGROWIN NAIL Problem 09/06/2019 [facility] (St 12:00:00 AM [facility]) G47.30 Sleep apnea, SLEEP APNEA, Problem 09/06/2019 [facility] (St unspecified UNSPECIFIED 12:00:00 AM [facility]) R94.31 Abnormal ABNORMAL Problem 09/06/2019 [facility] (St electrocardiogram ELECTROCARDIOGRAM 12:00:00 AM [facility] [ECG] [EKG] [ECG] [EKG] [facility], ) M79.675 Pain in left toe(s) PAIN IN LEFT TOE(S) Problem 020 [facility] (St 12:00:00 AM [facility]) M79.674 Pain in right toe(s) PAIN IN RIGHT TOE(S) Problem 09/05 [facility] (St 12:00:00 AM [facility], ) K76.0 Fatty (change of) FATTY (CHANGE OF) Problem 09/06/2019 [facility] (St liver, not elsewhere LIVER, NOT ELSEWHERE 12:00 :00 AM Rai classified [facility], ) E78.5 Hyperlipidemia, HYPERLIPIDEMIA, Problem 09/06/2019 MEDG EN (St unspecified UNSPECIFIED 12:00:00 AM [facility]) L60.0 Ingrowing nail INGROWIN NAIL Problem 09/06/2019 [facility] (St 12:00:00 AM [facility], ) G47.30 Sleep apnea, SLEEP APNEA, Problem 09/06/2019 MED[facility] (St unspecified UNSPECIFIED 12:00:00 AM [facility]) R94.31 Abnormal ABNORMAL Problem 09/06/2019 [facility] (St electrocardiogram ELECTROCARDIOGRAM 12:00:00 AM Rai's [ECG] [EKG] [ECG] [EKG] [facility], ) M79.675 Pain in left toe(s) PAIN IN LEFT TOE(S) Problem 020 [facility] (St 12:00:00 AM [facility], ) M79.674 Pain in right toe(s) PAIN IN RIGHT TOE(S) Problem 09/05 [facility] (St 12:00:00 AM [facility], ) K76.0 Fatty (change of) FATTY (CHANGE OF) Problem 09/06/2019 [facility] (St liver, not elsewhere LIVER, NOT ELSEWHERE 12:00 :00 AM [facility] classified CLASSIFIED [facility], ) E78.5 Hyperlipidemia, HYPERLIPIDEMIA, Problem 09/06/2019 MEDG EN (St unspecified UNSPECIFIED 12:00:00 AM [facility], ) L60.0 Ingrowing nail INGROWIN NAIL Problem 09/06/2019 [facility] (St 12:00:00 AM [facility], ) G47.30 Sleep apnea, SLEEP APNEA, Problem 09/06/2019 [facility] (St unspecified UNSPECIFIED 12:00:00 AM [facility], ) R94.31 Abnormal ABNORMAL Problem 09/06/2019 [facility] (St electrocardiogram ELECTROCARDIOGRAM 12:00:00 AM [facility] [ECG] [EKG] [ECG] [EKG] [facility], ) M79.675 Pain in left toe(s) PAIN IN LEFT TOE(S) Problem 020 [facility] (St 12:00:00 AM [facility], ) M79.674 Pain in right toe(s) PAIN IN RIGHT TOE(S) Problem 09/05 [facility] (St 12:00:00 AM [facility], ) K76.0 Fatty (change of) FATTY (CHANGE OF) Problem 09/06/2019 [facility] (St liver, not elsewhere LIVER, NOT ELSEWHERE 12:00 :00 AM Rai classified [facility], ) E78.5 Hyperlipidemia, HYPERLIPIDEMIA, Problem 09/06/2019 MEDG EN (St unspecified UNSPECIFIED 12:00:00 AM [facility], ) L60.0 Ingrowing nail INGROWIN NAIL Problem 09/06/2019 [facility] (St 12:00:00 AM [facility], ) G47.30 Sleep apnea, SLEEP APNEA, Problem 09/06/2019 [facility] (St unspecified UNSPECIFIED 12:00:00 AM [facility], ) R94.31 Abnormal ABNORMAL Problem 09/06/2019 [facility] (St electrocardiogram ELECTROCARDIOGRAM 12:00:00 AM [facility] [ECG] [EKG] [ECG] [EKG] [facility], ) M79.675 Pain in left toe(s) PAIN IN LEFT TOE(S) Problem 020 [facility] (St 12:00:00 AM [facility], ) M79.674 Pain in right toe(s) PAIN IN RIGHT TOE(S) Problem 09/05 [facility] (St 12:00:00 AM [facility], ) K76.0 Fatty (change of) FATTY (CHANGE OF) Problem 09/06/2019 [facility] (St liver, not elsewhere LIVER, NOT ELSEWHERE 12:00 :00 AM [facility], ) E78.5 Hyperlipidemia, HYPERLIPIDEMIA, Problem 09/06/2019 MEDG EN (St unspecified UNSPECIFIED 12:00:00 AM [facility], ) L60.0 Ingrowing nail INGROWIN NAIL Problem 09/06/2019 MED[facility] (St 12:00:00 AM [facility], ) G47.30 Sleep apnea, SLEEP APNEA, Problem 09/06/2019 MED[facility] (St unspecified UNSPECIFIED 12:00:00 AM [facility], ) M79.675 Pain in left toe(s) PAIN IN LEFT TOE(S) Problem 020 [facility] (St 12:00:00 AM [facility], ) M79.674 Pain in right toe(s) PAIN IN RIGHT TOE(S) Problem 09/05 [facility] (St 12:00:00 AM [facility], ) L60.0 Ingrowing nail INGROWIN NAIL Problem 09/06/2019 [facility] (St 12:00:00 AM [facility], ) E66.3 Overweight OVERWEIGHT Problem 08/23/2019 MED[facility] (St 12:00:00 AM Rai's EDT [facility], ) G40.89 Other seizures OTHER SEIZURES Problem 08/23/2019 MED[facility] (St 12:00:00 AM Rai's EDT [facility], ) R21 Rash and other RASH AND OTHER Problem 08/23/2019 MED[facility] (St nonspecific skin NONSPECIFIC SKIN 12:00:00 AM J ohn's eruption ERUPTION EDT Medical, ) R10.10 Upper abdominal pain, UPPER ABDOMINAL PAIN, Problem [facility] (St unspecified UNSPECIFIED 12:00:00 AM Rai's EDT [facility], ) E66.3 Overweight OVERWEIGHT Problem 08/23/2019 MED[facility] (St 12:00:00 AM Rai's EDT [facility], ) G40.89 Other seizures OTHER SEIZURES Problem 08/23/2019 [facility] (St 12:00:00 AM Rai's EDT [facility], ) R21 Rash and other RASH AND OTHER Problem 08/23/2019 MED[facility] (St nonspecific skin NONSPECIFIC SKIN 12:00:00 AM J ohn's eruption ERUPTION EDT Medical, ) R10.10 Upper abdominal pain, UPPER ABDOMINAL PAIN, Problem [facility] (St unspecified UNSPECIFIED 12:00:00 AM Rai's EDT [facility], ) E66.3 Overweight OVERWEIGHT Problem 08/23/2019 [facility] (St 12:00:00 AM Rai's EDT Medical, ) G40.89 Other seizures OTHER SEIZURES Problem 08/23/2019 [facility] (St 12:00:00 AM Rai's EDT [facility], ) R21 Rash and other RASH AND OTHER Problem 08/23/2019 MED[facility] (St nonspecific skin NONSPECIFIC SKIN 12:00:00 AM J ohn's eruption ERUPTION EDT Medical, ) R10.10 Upper abdominal pain, UPPER ABDOMINAL PAIN, Problem [facility] (St unspecified UNSPECIFIED 12:00:00 AM Rai's EDT [facility], ) E66.3 Overweight OVERWEIGHT Problem 08/23/2019 MED[facility] (St 12:00:00 AM Rai's EDT [facility], ) G40.89 Other seizures OTHER SEIZURES Problem 08/23/2019 [facility] (St 12:00:00 AM [facility] EDT [facility], ) R21 Rash and other RASH AND OTHER Problem 08/23/2019 MED[facility] (St nonspecific skin NONSPECIFIC SKIN 12:00:00 AM J ohn's eruption ERUPTION EDT Medical, ) R10.10 Upper abdominal pain, UPPER ABDOMINAL PAIN, Problem MED[facility] (St unspecified UNSPECIFIED 12:00:00 AM Rai's EDT [facility], ) E66.3 Overweight OVERWEIGHT Problem 08/23/2019 MED[facility] (St 12:00:00 AM Rai's EDT [facility], ) G40.89 Other seizures OTHER SEIZURES Problem 08/23/2019 [facility] (St 12:00:00 AM Rai's EDT [facility], ) R21 Rash and other RASH AND OTHER Problem 08/23/2019 MED[facility] (St nonspecific skin NONSPECIFIC SKIN 12:00:00 AM J ohn's eruption ERUPTION EDT Medical, ) R10.10 Upper abdominal pain, UPPER ABDOMINAL PAIN, Problem [facility] (St unspecified UNSPECIFIED 12:00:00 AM [facility], ) E66.3 Overweight OVERWEIGHT Problem 08/23/2019 MED[facility] (St 12:00:00 AM Rai's EDT [facility], ) G40.89 Other seizures OTHER SEIZURES Problem 08/23/2019 [facility] (St 12:00:00 AM Rai's EDT [facility], ) R21 Rash and other RASH AND OTHER Problem 08/23/2019 MED[facility] (St nonspecific skin NONSPECIFIC SKIN 12:00:00 AM J ohn's eruption ERUPTION EDT Medical, ) R10.10 Upper abdominal pain, UPPER ABDOMINAL PAIN, Problem MED[facility] (St unspecified UNSPECIFIED 12:00:00 AM Rai's EDT [facility], ) E66.3 Overweight OVERWEIGHT Problem 08/23/2019 MED[facility] (St 12:00:00 AM Rai's EDT [facility], ) G40.89 Other seizures OTHER SEIZURES Problem 08/23/2019 MED[facility] (St 12:00:00 AM Rai's EDT [facility], ) R21 Rash and other RASH AND OTHER Problem 08/23/2019 MED[facility] (St nonspecific skin NONSPECIFIC SKIN 12:00:00 AM J ohn's eruption ERUPTION EDT Medical, ) R10.10 Upper abdominal pain, UPPER ABDOMINAL PAIN, Problem MED[facility] (St unspecified UNSPECIFIED 12:00:00 AM [facility], ) E66.3 Overweight OVERWEIGHT Problem 08/23/2019 [facility] (St 12:00:00 AM [facility], ) G40.89 Other seizures OTHER SEIZURES Problem 08/23/2019 [facility] (St 12:00:00 AM [facility], ) R21 Rash and other RASH AND OTHER Problem 08/23/2019 MED[facility] (St nonspecific skin NONSPECIFIC SKIN 12:00:00 AM J ohn's eruption ERUPTION [facility], ) R10.10 Upper abdominal pain, UPPER ABDOMINAL PAIN, Problem MED[facility] (St unspecified UNSPECIFIED 12:00:00 AM [facility], ) E66.9 Obesity, unspecified OBESITY, UNSPECIFIED Problem 12/01 MED[facility] (St 12:00:00 AM [facility]) 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 12/01/2018 MED[facility] (St liver LIVER 12:00:00 AM [facility]) R16.0 Hepatomegaly, not HEPATOMEGALY, NOT Problem 12/01/2018 MED[facility] (St elsewhere classified ELSEWHERE CLASSIFIED 12:00 :00 AM [facility], ) R14.0 Abdominal distension ABDOMINAL DISTENSION Problem 12/01 MED[facility] (St (gaseous) (GASEOUS) 12:00:00 AM [facility]) E66.9 Obesity, unspecified OBESITY, UNSPECIFIED Problem 12/01 [facility] (St 12:00:00 AM [facility], ) 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 12/01/2018 [facility] (St liver LIVER 12:00:00 AM [facility], ) R16.0 Hepatomegaly, not HEPATOMEGALY, NOT Problem 12/01/2018 [facility] (St elsewhere classified ELSEWHERE CLASSIFIED 12:00 :00 AM [facility], ) R14.0 Abdominal distension ABDOMINAL DISTENSION Problem 12/01 MED[facility] (St (gaseous) (GASEOUS) 12:00:00 AM [facility]) E66.9 Obesity, unspecified OBESITY, UNSPECIFIED Problem 12/01 [facility] (St 12:00:00 AM [facility], ) 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 12/01/2018 [facility] (St liver LIVER 12:00:00 AM [facility], ) R16.0 Hepatomegaly, not HEPATOMEGALY, NOT Problem 12/01/2018 [facility] (St elsewhere classified ELSEWHERE CLASSIFIED 12:00 :00 AM [facility], ) R14.0 Abdominal distension ABDOMINAL DISTENSION Problem 12/01 MED[facility] (St (gaseous) (GASEOUS) 12:00:00 AM [facility], ) E66.9 Obesity, unspecified OBESITY, UNSPECIFIED Problem 12/01 [facility] (St 12:00:00 AM [facility], ) 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 12/01/2018 [facility] (St liver LIVER 12:00:00 AM [facility], ) R16.0 Hepatomegaly, not HEPATOMEGALY, NOT Problem 12/01/2018 [facility] (St elsewhere classified ELSEWHERE CLASSIFIED 12:00 :00 AM [facility], ) R14.0 Abdominal distension ABDOMINAL DISTENSION Problem 12/01 MED[facility] (St (gaseous) (GASEOUS) 12:00:00 AM [facility], ) E66.9 Obesity, unspecified OBESITY, UNSPECIFIED Problem 12/01 [facility] (St 12:00:00 AM [facility], ) 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 12/01/2018 [facility] (St liver LIVER 12:00:00 AM [facility], ) R16.0 Hepatomegaly, not HEPATOMEGALY, NOT Problem 12/01/2018 [facility] (St elsewhere classified ELSEWHERE CLASSIFIED 12:00 :00 AM [facility], ) R14.0 Abdominal distension ABDOMINAL DISTENSION Problem 12/01 MED[facility] (St (gaseous) (GASEOUS) 12:00:00 AM [facility], ) E66.9 Obesity, unspecified OBESITY, UNSPECIFIED Problem 12/01 [facility] (St 12:00:00 AM [facility], ) 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 12/01/2018 [facility] (St liver LIVER 12:00:00 AM [facility], ) R16.0 Hepatomegaly, not HEPATOMEGALY, NOT Problem 12/01/2018 [facility] (St elsewhere classified ELSEWHERE CLASSIFIED 12:00 :00 AM [facility], ) R14.0 Abdominal distension ABDOMINAL DISTENSION Problem 12/01 MED[facility] (St (gaseous) (GASEOUS) 12:00:00 AM [facility], ) E66.9 Obesity, unspecified OBESITY, UNSPECIFIED Problem 12/01 [facility] (St 12:00:00 AM [facility], ) 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 12/01/2018 [facility] (St liver LIVER 12:00:00 AM [facility], ) R16.0 Hepatomegaly, not HEPATOMEGALY, NOT Problem 12/01/2018 MED[facility] (St elsewhere classified ELSEWHERE CLASSIFIED 12:00 :00 AM [facility], ) R14.0 Abdominal distension ABDOMINAL DISTENSION Problem 12/01 MED[facility] (St (gaseous) (GASEOUS) 12:00:00 AM [facility], ) E66.9 Obesity, unspecified OBESITY, UNSPECIFIED Problem 12/01 [facility] (St 12:00:00 AM [facility], ) 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 12/01/2018 [facility] (St liver LIVER 12:00:00 AM [facility], ) R16.0 Hepatomegaly, not HEPATOMEGALY, NOT Problem 12/01/2018 MED[facility] (St elsewhere classified ELSEWHERE CLASSIFIED 12:00 :00 AM [facility], ) R14.0 Abdominal distension ABDOMINAL DISTENSION Problem 12/01 MED[facility] (St (gaseous) (GASEOUS) 12:00:00 AM [facility], ) R94.5 Abnormal results of ABNORMAL RESULTS OF Problem 019 MED[facility] (St liver function LIVER FUNCTION 12:00:00 AM [facility], ) N43.3 Hydrocele, HYDROCELE, Problem 10/14/2018 MEDGEN (St unspecified UNSPECIFIED 12:00:00 AM [facility], ) K30 Functional dyspepsia FUNCTIONAL DYSPEPSIA Problem 10/14 MED[facility] (St 12:00:00 AM [facility], ) R10.9 Unspecified abdominal UNSPECIFIED ABDOMINAL Problem 11/2018 MED[facility] (St pain PAIN 12:00:00 AM [facility], ) 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 (St liver LIVER 12:00:00 AM [facility], ) R94.5 Abnormal results of ABNORMAL RESULTS OF Problem 019 MED[facility] (St liver function LIVER FUNCTION 12:00:00 AM [facility]) N43.3 Hydrocele, HYDROCELE, Problem 10/14/2018 MEDGEN (St unspecified UNSPECIFIED 12:00:00 AM [facility], ) K30 Functional dyspepsia FUNCTIONAL DYSPEPSIA Problem 10/14 MED[facility] (St 12:00:00 AM [facility], ) R10.9 Unspecified abdominal UNSPECIFIED ABDOMINAL Problem 11/2018 MED[facility] (St pain PAIN 12:00:00 AM [facility], ) 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 (St liver LIVER 12:00:00 AM [facility], ) R94.5 Abnormal results of ABNORMAL RESULTS OF Problem 019 MED[facility] (St liver function LIVER FUNCTION 12:00:00 AM [facility], ) N43.3 Hydrocele, HYDROCELE, Problem 10/14/2018 MEDGEN (St unspecified UNSPECIFIED 12:00:00 AM [facility], ) K30 Functional dyspepsia FUNCTIONAL DYSPEPSIA Problem 10/14 MED[facility] (St 12:00:00 AM [facility], ) R10.9 Unspecified abdominal UNSPECIFIED ABDOMINAL Problem 11/2018 MED[facility] (St pain PAIN 12:00:00 AM [facility], ) 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 (St liver LIVER 12:00:00 AM [facility], ) R94.5 Abnormal results of ABNORMAL RESULTS OF Problem 019 MED[facility] (St liver function LIVER FUNCTION 12:00:00 AM [facility] [facility] N43.3 Hydrocele, HYDROCELE, Problem 10/14/2018 MEDGEN (St unspecified UNSPECIFIED 12:00:00 AM [facility], ) K30 Functional dyspepsia FUNCTIONAL DYSPEPSIA Problem 10/14 MEDGEN (St 12:00:00 AM [facility], ) R10.9 Unspecified abdominal UNSPECIFIED ABDOMINAL Problem 11/2018 MED[facility] ([address] pain PAIN 12:00:00 AM [facility], ) 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 (St liver LIVER 12:00:00 AM [facility], ) R94.5 Abnormal results of ABNORMAL RESULTS OF Problem 019 MEDGEN (St liver function LIVER FUNCTION 12:00:00 AM [facility], ) N43.3 Hydrocele, HYDROCELE, Problem 10/14/2018 MEDGEN (St unspecified UNSPECIFIED 12:00:00 AM [facility], ) K30 Functional dyspepsia FUNCTIONAL DYSPEPSIA Problem 10/14 MEDGEN (St 12:00:00 AM [facility], ) R10.9 Unspecified abdominal UNSPECIFIED ABDOMINAL Problem 11/2018 [facility] ([address] pain PAIN 12:00:00 AM [facility], ) 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 (St liver LIVER 12:00:00 AM [facility], ) R94.5 Abnormal results of ABNORMAL RESULTS OF Problem 019 MEDGEN (St liver function LIVER FUNCTION 12:00:00 AM [facility], ) N43.3 Hydrocele, HYDROCELE, Problem 10/14/2018 MEDGEN (St unspecified UNSPECIFIED 12:00:00 AM [facility], ) K30 Functional dyspepsia FUNCTIONAL DYSPEPSIA Problem 10/14 MEDGEN (St 12:00:00 AM [facility], ) R10.9 Unspecified abdominal UNSPECIFIED ABDOMINAL Problem 11/2018 MED[facility] ([address] pain PAIN 12:00:00 AM [facility], ) 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 (St liver LIVER 12:00:00 AM [facility], ) R94.5 Abnormal results of ABNORMAL RESULTS OF Problem 019 MEDGEN (St liver function LIVER FUNCTION 12:00:00 AM [facility], ) N43.3 Hydrocele, HYDROCELE, Problem 10/14/2018 MEDGEN (St unspecified UNSPECIFIED 12:00:00 AM [facility], ) K30 Functional dyspepsia FUNCTIONAL DYSPEPSIA Problem 10/14 MEDGEN (St 12:00:00 AM [facility], ) R10.9 Unspecified abdominal UNSPECIFIED ABDOMINAL Problem 11/2018 MED[facility] (St pain PAIN 12:00:00 AM [facility], ) 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 (St liver LIVER 12:00:00 AM [facility], ) R94.5 Abnormal results of ABNORMAL RESULTS OF Problem 019 MEDGEN (St liver function LIVER FUNCTION 12:00:00 AM [facility], ) N43.3 Hydrocele, HYDROCELE, Problem 10/14/2018 MEDGEN (St unspecified UNSPECIFIED 12:00:00 AM [facility], ) K30 Functional dyspepsia FUNCTIONAL DYSPEPSIA Problem 10/14 MEDGEN (St 12:00:00 AM [facility], ) R10.9 Unspecified abdominal UNSPECIFIED ABDOMINAL Problem 11/2018 MED[facility] ([address] pain PAIN 12:00:00 AM [facility], ) 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 (St liver LIVER 12:00:00 AM [facility], ) Surgeries/Procedures Procedure Description Date Indications Data Source(s) Documentation of current 11/20/2019 MED GEN (Margie's medications (procedure) 12:00:00 AM ED[facility], ) OFFICE CONSULTATION 11/20/2019 MEDGEN ( [facility]ie's NEW/ESTAB PATIENT 40 MIN 12:00:00 AM EDT Medical, ) OFFICE OUTPATIENT NEW 30 10/26/2019 MED GEN (Margie's MINUTES 12:00:00 AM EDT Medical, PC) OFFICE OUTPATIENT NEW 10/26/2019 MED GEN (Margie's MINUTES 12:00:00 AM ED Medical, ) Documentation of current 10/25/2019 MED GEN (Margie's medications (procedure) 12:00:00 AM EDT anaical, ) Documentation of current 10/25/2019 MED GEN (Margie's medications (procedure) 12:00:00 AM EDT anaical, ) Documentation of current 10/25/2019 MED GEN (Margie's medications (procedure) 12:00:00 AM EDT anaical, PC) Documentation of current 10/25/2019 MED GEN (Margie's medications (procedure) 12:00:00 AM EDT anaical, ) Documentation of current 10/25/2019 MED GEN (Margie's medications (procedure) 12:00:00 AM EDT anaical, PC) Documentation of current 10/25/2019 MED GEN (Margie's medications (procedure) 12:00:00 AM EDT anaical, ) Documentation of current 10/25/2019 MED GEN (Margie's medications (procedure) 12:00:00 AM EDT anaical, ) Documentation of current 10/25/2019 MED GEN (Margie's medications (procedure) 12:00:00 AM EDT anaical, ) OFFICE OUTPATIENT VISIT 10/25/2019 [facility] BLOOD 10/25/2019 MEDG EN (Margie's VENIPUNCTURE 12:00:00 AM [facility], ) Documentation of current 10/25/2019 MED GEN (Margie's medications (procedure) 12:00:00 AM EDT [facility], PC) Documentation of current 10/25/2019 MED GEN (Margie's medications (procedure) 12:00:00 AM EDT anaical, ) Documentation of current 10/25/2019 MED GEN (Margie's medications (procedure) 12:00:00 AM EDT anaical, PC) Documentation of current 10/25/2019 MED GEN (Margie's medications (procedure) 12:00:00 AM EDT edical, ) Documentation of current 10/25/2019 MED GEN (Margie's medications (procedure) 12:00:00 AM EDT anaical, PC) Documentation of current 10/25/2019 MED GEN (Margie's medications (procedure) 12:00:00 AM EDT anaical, ) Documentation of current 10/25/2019 MED GEN (Margie's medications (procedure) 12:00:00 AM EDT anaical, ) Documentation of current 10/25/2019 MED GEN (Margie's medications (procedure) 12:00:00 AM EDT anaical, ) OFFICE OUTPATIENT VISIT 10/25/2019 MEDG EN (Margie's 25 MINUTES 12:00:00 AM [facility] Medical, ) COLLECTION VENOUS BLOOD 10/25/2019 MEDG EN (Margie's VENIPUNCTURE 12:00:00 AM [facility], ) Documentation of current 10/25/2019 MED GEN (Margie's medications (procedure) 12:00:00 AM EDT anaical, ) Documentation of current 10/25/2019 MED GEN (Margie's medications (procedure) 12:00:00 AM EDT anaical, ) Documentation of current 10/25/2019 MED GEN (Margie's medications (procedure) 12:00:00 AM EDT anaical, ) Documentation of current 10/25/2019 MED GEN (Margie's medications (procedure) 12:00:00 AM EDT anaical, PC) Documentation of current 10/25/2019 MED GEN (Margie's medications (procedure) 12:00:00 AM EDT anaical, ) Documentation of current 10/25/2019 MED GEN (Margie's medications (procedure) 12:00:00 AM EDT edical, ) OFFICE OUTPATIENT VISIT 10/25/2019 MEDG EN ([facility]ie's 25 MINUTES 12:00:00 AM [facility] Medical, ) COLLECTION VENOUS BLOOD 10/25/2019 MEDG EN (Margie's VENIPUNCTURE 12:00:00 AM [facility], ) Documentation of current 09/06/2019 MED GEN (Margie's medications (procedure) 12:00:00 AM EDT anaical, ) Documentation of current 09/06/2019 MED GEN (Margie's medications (procedure) 12:00:00 AM EDT [facility]ip, ) Documentation of current 09/06/2019 MED GEN (Margie's medications (procedure) 12:00:00 AM EDT [facility], ) Documentation of current 09/06/2019 MED GEN ([facility]ie's medications (procedure) 12:00:00 AM EDT [facility], PC) Documentation of current 09/06/2019 MED GEN (Margie's medications (procedure) 12:00:00 AM EDT [facility], ) Documentation of current 09/06/2019 MED GEN (Margie's medications (procedure) 12:00:00 AM EDT [facility], ) OFFICE OUTPATIENT VISIT 09/06/2019 MEDG EN (Margie's 25 MINUTES 12:00:00 AM [facility], ) OFFICE OUTPATIENT NEW 30 09/06/2019 MED GEN (Margie's MINUTES 12:00:00 AM [facility], ) ECG ROUTINE ECG W/LEAST 09/06/2019 MEDG EN (Margie's 12 LDS W/I&R 12:00:00 AM [facility], ) COLLECTION VENOUS BLOOD 09/06/2019 MEDG EN ([facility]ie's VENIPUNCTURE 12:00:00 AM [facility], ) Documentation of current 09/06/2019 MED GEN (Margie's medications (procedure) 12:00:00 AM EDT [facility], ) Documentation of current 09/06/2019 MED GEN (Margie's medications (procedure) 12:00:00 AM EDT [facility], ) Documentation of current 09/06/2019 MED GEN ([facility]ie's medications (procedure) 12:00:00 AM EDT [facility], PC) Documentation of current 09/06/2019 MED GEN ([facility]ie's medications (procedure) 12:00:00 AM EDT [facility], PC) Documentation of current 09/06/2019 MED GEN ([facility]ie's medications (procedure) 12:00:00 AM EDT [facility], PC) Documentation of current 09/06/2019 MED GEN (Margie's medications (procedure) 12:00:00 AM EDT [facility], PC) OFFICE OUTPATIENT VISIT 09/06/2019 MEDG EN ([facility]ie's 25 MINUTES 12:00:00 AM [facility], ) OFFICE OUTPATIENT NEW 30 09/06/2019 MED GEN (Margie's MINUTES 12:00:00 AM [facility], ) ECG ROUTINE ECG W/LEAST 09/06/2019 MEDG EN (Margie's 12 LDS W/I&R 12:00:00 AM [facility], ) COLLECTION VENOUS BLOOD 09/06/2019 MEDG EN ([facility]ie's VENIPUNCTURE 12:00:00 AM [facility], ) Documentation of current 09/06/2019 MED GEN (Margie's medications (procedure) 12:00:00 AM T [facility]) Documentation of current 09/06/2019 MED GEN (Margie's medications (procedure) 12:00:00 AM [facility], ) Documentation of current 09/06/2019 MED GEN (Margie's medications (procedure) 12:00:00 AM [facility], ) Documentation of current 09/06/2019 MED GEN (Margie's medications (procedure) 12:00:00 AM [facility]) Documentation of current 09/06/2019 MED GEN (Margie's medications (procedure) 12:00:00 AM [facility]) Documentation of current 09/06/2019 MED GEN (Margie's medications (procedure) 12:00:00 AM [facility]) OFFICE OUTPATIENT VISIT 09/06/2019 MEDG EN (Margie's 25 MINUTES 12:00:00 AM [facility], ) OFFICE OUTPATIENT NEW 30 09/06/2019 MED GEN (Margie's MINUTES 12:00:00 AM [facility], ) ECG ROUTINE ECG W/LEAST 09/06/2019 MEDG EN (Margie's 12 LDS W/I&R 12:00:00 AM [facility], ) COLLECTION VENOUS BLOOD 09/06/2019 MEDG EN (Margie's VENIPUNCTURE 12:00:00 AM [facility], ) Documentation of current 09/06/2019 MED GEN (Margie's medications (procedure) 12:00:00 AM [facility]) Documentation of current 09/06/2019 MED GEN (Margie's medications (procedure) 12:00:00 AM EDT [facility], ) Documentation of current 09/06/2019 MED GEN (Margie's medications (procedure) 12:00:00 AM T [facility], ) Documentation of current 09/06/2019 MED GEN (Margie's medications (procedure) 12:00:00 AM T [facility], ) Documentation of current 09/06/2019 MED GEN (Margie's medications (procedure) 12:00:00 AM T [facility], ) OFFICE OUTPATIENT VISIT 09/06/2019 MEDG EN (Margie's 25 MINUTES 12:00:00 AM [facility], ) OFFICE OUTPATIENT NEW 09/06/2019 MED GEN (Margie's MINUTES 12:00:00 AM [facility], ) ECG ROUTINE ECG W/LEAST 09/06/2019 MEDG EN (Margie's 12 LDS W/I&R 12:00:00 AM [facility], ) COLLECTION VENOUS BLOOD 09/06/2019 MEDG EN (Margie's VENIPUNCTURE 12:00:00 AM [facility], ) Documentation of current 09/06/2019 MED GEN (Margie's medications (procedure) 12:00:00 AM T [facility], ) Documentation of current 09/06/2019 MED GEN (Margie's medications (procedure) 12:00:00 AM T [facility], ) Documentation of current 09/06/2019 MED GEN (Margie's medications (procedure) 12:00:00 AM T [facility], ) Documentation of current 09/06/2019 MED GEN (Margie's medications (procedure) 12:00:00 AM T [facility], ) Documentation of current 09/06/2019 MED GEN (Margie's medications (procedure) 12:00:00 AM T [facility], ) OFFICE OUTPATIENT VISIT 09/06/2019 MEDG EN (Margie's 25 MINUTES 12:00:00 AM [facility], ) OFFICE OUTPATIENT NEW 09/06/2019 MED GEN (Margie's MINUTES 12:00:00 AM [facility], ) ECG ROUTINE ECG W/LEAST 09/06/2019 MEDG EN (Margie's 12 LDS W/I&R 12:00:00 AM [facility], ) COLLECTION VENOUS BLOOD 09/06/2019 MEDG EN (Margie's VENIPUNCTURE 12:00:00 AM [facility], ) Documentation of current 09/06/2019 MED GEN (Margie's medications (procedure) 12:00:00 AM EDT anaical, ) Documentation of current 09/06/2019 MED GEN (Margie's medications (procedure) 12:00:00 AM EDT [facility], ) OFFICE OUTPATIENT VISIT 09/06/2019 MEDG EN (Margie's 25 MINUTES 12:00:00 AM [facility], ) OFFICE OUTPATIENT NEW 30 09/06/2019 MED GEN (Margie's MINUTES 12:00:00 AM [facility], ) ECG ROUTINE ECG W/LEAST 09/06/2019 MEDG EN (Margie's 12 LDS W/I&R 12:00:00 AM [facility], ) COLLECTION VENOUS BLOOD 09/06/2019 MEDG EN (Margie's VENIPUNCTURE 12:00:00 AM [facility], ) Documentation of current 08/23/2019 MED GEN (Margie's medications (procedure) 12:00:00 AM EDT [facility], ) Documentation of current 08/23/2019 MED GEN (Margie's medications (procedure) 12:00:00 AM EDT [facility], ) Documentation of current 08/23/2019 MED GEN (Margie's medications (procedure) 12:00:00 AM EDT anaical, ) Documentation of current 08/23/2019 MED GEN (Margie's medications (procedure) 12:00:00 AM EDT [facility], ) Documentation of current 08/23/2019 MED GEN (Margie's medications (procedure) 12:00:00 AM EDT [facility], PC) Documentation of current 08/23/2019 MED GEN (Margie's medications (procedure) 12:00:00 AM EDT anaical, ) Documentation of current 08/23/2019 MED GEN (Margie's medications (procedure) 12:00:00 AM EDT anaical, ) Documentation of current 08/23/2019 MED GEN (Margie's medications (procedure) 12:00:00 AM EDT [facility], ) Documentation of current 08/23/2019 MED GEN (Margie's medications (procedure) 12:00:00 AM EDT [facility], PC) Documentation of current 08/23/2019 MED GEN (Margie's medications (procedure) 12:00:00 AM EDT edical, PC) Documentation of current 08/23/2019 MED GEN (Margie's medications (procedure) 12:00:00 AM EDT anaical, PC) OFFICE OUTPATIENT VISIT 08/23/2019 MEDG EN ([facility]ie's 25 MINUTES 12:00:00 AM EDT Medical, PC) Documentation of current 08/23/2019 MED GEN (Margie's medications (procedure) 12:00:00 AM EDT anaical, PC) Documentation of current 08/23/2019 MED GEN (Margie's medications (procedure) 12:00:00 AM EDT [facility], PC) Documentation of current 08/23/2019 MED GEN (Margie's medications (procedure) 12:00:00 AM EDT anaical, PC) Documentation of current 08/23/2019 MED GEN (Margie's medications (procedure) 12:00:00 AM EDT [facility], PC) Documentation of current 08/23/2019 MED GEN (Margie's medications (procedure) 12:00:00 AM EDT anaical, PC) Documentation of current 08/23/2019 MED GEN (Margie's medications (procedure) 12:00:00 AM EDT anaical, PC) Documentation of current 08/23/2019 MED GEN (Margie's medications (procedure) 12:00:00 AM EDT anaical, PC) Documentation of current 08/23/2019 MED GEN (Margie's medications (procedure) 12:00:00 AM EDT anaical, PC) Documentation of current 08/23/2019 MED GEN (Margie's medications (procedure) 12:00:00 AM EDT edical, PC) Documentation of current 08/23/2019 MED GEN (Margie's medications (procedure) 12:00:00 AM EDT edical, PC) Documentation of current 08/23/2019 MED GEN (Margie's medications (procedure) 12:00:00 AM EDT anaical, PC) OFFICE OUTPATIENT VISIT 08/23/2019 MEDG EN ([facility]ie's 25 MINUTES 12:00:00 AM EDT Medical, PC) Documentation of current 08/23/2019 MED GEN (Margie's medications (procedure) 12:00:00 AM EDT [facility], PC) Documentation of current 08/23/2019 MED GEN (Margie's medications (procedure) 12:00:00 AM EDT [facility], PC) Documentation of current 08/23/2019 MED GEN (Margie's medications (procedure) 12:00:00 AM EDT [facility], PC) Documentation of current 08/23/2019 MED GEN (Margie's medications (procedure) 12:00:00 AM EDT anaical, PC) Documentation of current 08/23/2019 MED GEN (Margie's medications (procedure) 12:00:00 AM EDT edical, PC) Documentation of current 08/23/2019 MED GEN (Margie's medications (procedure) 12:00:00 AM EDT anaical, PC) Documentation of current 08/23/2019 MED GEN (Margie's medications (procedure) 12:00:00 AM EDT [facility], PC) Documentation of current 08/23/2019 MED GEN (Margie's medications (procedure) 12:00:00 AM EDT [facility], PC) Documentation of current 08/23/2019 MED GEN (Margie's medications (procedure) 12:00:00 AM EDT [facility], PC) Documentation of current 08/23/2019 MED GEN (Margie's medications (procedure) 12:00:00 AM EDT [facility], PC) Documentation of current 08/23/2019 MED GEN (Margie's medications (procedure) 12:00:00 AM EDT [facility], PC) OFFICE OUTPATIENT VISIT 08/23/2019 MEDG EN (Margie's 25 MINUTES 12:00:00 AM EDT [facility], PC) Documentation of current 08/23/2019 MED GEN (Margie's medications (procedure) 12:00:00 AM EDT [facility], PC) Documentation of current 08/23/2019 MED GEN (Margie's medications (procedure) 12:00:00 AM EDT [facility], PC) Documentation of current 08/23/2019 MED GEN (Margie's medications (procedure) 12:00:00 AM EDT [facility], PC) Documentation of current 08/23/2019 MED GEN (Margie's medications (procedure) 12:00:00 AM EDT [facility], PC) Documentation of current 08/23/2019 MED GEN (Margie's medications (procedure) 12:00:00 AM EDT [facility], PC) Documentation of current 08/23/2019 MED GEN (Marige's medications (procedure) 12:00:00 AM EDT [facility], PC) Documentation of current 08/23/2019 MED GEN (Margie's medications (procedure) 12:00:00 AM EDT [facility], PC) Documentation of current 08/23/2019 MED GEN (Margie's medications (procedure) 12:00:00 AM EDT [facility], PC) Documentation of current 08/23/2019 MED GEN (Margie's medications (procedure) 12:00:00 AM EDT [facility], PC) Documentation of current 08/23/2019 MED GEN (Margie's medications (procedure) 12:00:00 AM EDT phillip, PRADIP) OFFICE OUTPATIENT VISIT 08/23/2019 MEDG EN (Margie's 25 MINUTES 12:00:00 AM BIPIN [facility], PC) Documentation of current 08/23/2019 MED GEN (Margie's medications (procedure) 12:00:00 AM EDT [facility], PC) Documentation of current 08/23/2019 MED GEN (Margie's medications (procedure) 12:00:00 AM EDT [facility], PC) Documentation of current 08/23/2019 MED GEN (Margie's medications (procedure) 12:00:00 AM EDT [facility], PC) Documentation of current 08/23/2019 MED GEN (Margie's medications (procedure) 12:00:00 AM EDT [facility], PC) Documentation of current 08/23/2019 MED GEN (Margie's medications (procedure) 12:00:00 AM EDT [facility], PC) Documentation of current 08/23/2019 MED GEN (Margie's medications (procedure) 12:00:00 AM EDT [facility], PC) Documentation of current 08/23/2019 MED GEN (Margie's medications (procedure) 12:00:00 AM EDT [facility], PC) Documentation of current 08/23/2019 MED GEN (Margie's medications (procedure) 12:00:00 AM EDT anaical, PC) Documentation of current 08/23/2019 MED GEN (Margie's medications (procedure) 12:00:00 AM EDT anaical, PC) Documentation of current 08/23/2019 MED GEN (Margie's medications (procedure) 12:00:00 AM EDT anaical, PC) OFFICE OUTPATIENT VISIT 08/23/2019 MEDG EN ([facility]ie's 25 MINUTES 12:00:00 AM EDT Medical, PC) Documentation of current 08/23/2019 MED GEN (Margie's medications (procedure) 12:00:00 AM EDT [facility], PC) Documentation of current 08/23/2019 MED GEN (Margie's medications (procedure) 12:00:00 AM EDT anaical, PC) Documentation of current 08/23/2019 MED GEN (Margie's medications (procedure) 12:00:00 AM EDT anaical, PC) Documentation of current 08/23/2019 MED GEN (Margie's medications (procedure) 12:00:00 AM EDT anaical, PC) Documentation of current 08/23/2019 MED GEN (Margie's medications (procedure) 12:00:00 AM EDT anaical, PC) Documentation of current 08/23/2019 MED GEN (Margie's medications (procedure) 12:00:00 AM EDT anaical, PC) Documentation of current 08/23/2019 MED GEN (Margie's medications (procedure) 12:00:00 AM EDT [facility], PC) Documentation of current 08/23/2019 MED GEN (Margie's medications (procedure) 12:00:00 AM EDT anaical, PC) Documentation of current 08/23/2019 MED GEN (Margie's medications (procedure) 12:00:00 AM EDT anaical, PC) Documentation of current 08/23/2019 MED GEN (Margie's medications (procedure) 12:00:00 AM EDT anaical, PC) OFFICE OUTPATIENT VISIT 08/23/2019 MEDG EN ([facility]ie's 25 MINUTES 12:00:00 AM EDT Medical, PC) Documentation of current 08/23/2019 MED GEN (Margie's medications (procedure) 12:00:00 AM EDT [facility], PC) Documentation of current 08/23/2019 MED GEN (Margie's medications (procedure) 12:00:00 AM EDT [facility], PC) Documentation of current 08/23/2019 MED GEN (Margie's medications (procedure) 12:00:00 AM EDT anaical, PC) Documentation of current 08/23/2019 MED GEN (Margie's medications (procedure) 12:00:00 AM EDT [facility], PC) Documentation of current 08/23/2019 MED GEN (Margie's medications (procedure) 12:00:00 AM EDT [facility], PC) Documentation of current 08/23/2019 MED GEN (Margie's medications (procedure) 12:00:00 AM EDT [facility], PC) Documentation of current 08/23/2019 MED GEN (Margie's medications (procedure) 12:00:00 AM EDT [facility], PC) Documentation of current 08/23/2019 MED GEN (Margie's medications (procedure) 12:00:00 AM EDT [facility], PC) Documentation of current 08/23/2019 MED GEN (Margie's medications (procedure) 12:00:00 AM EDT [facility], PC) OFFICE OUTPATIENT VISIT 08/23/2019 MEDG EN (Margie's 25 MINUTES 12:00:00 AM [facility] PC) Documentation of current 08/23/2019 MED GEN (Margie's medications (procedure) 12:00:00 AM EDT [facility], PC) Documentation of current 08/23/2019 MED GEN (Margie's medications (procedure) 12:00:00 AM EDT [facility], PC) Documentation of current 08/23/2019 MED GEN (Margie's medications (procedure) 12:00:00 AM EDT anaical, PC) Documentation of current 08/23/2019 MED GEN (Margie's medications (procedure) 12:00:00 AM EDT [facility], PC) Documentation of current 08/23/2019 MED GEN (Margie's medications (procedure) 12:00:00 AM EDT anaical, PC) Documentation of current 08/23/2019 MED GEN (Margie's medications (procedure) 12:00:00 AM EDT [facility], ) Documentation of current 08/23/2019 MED GEN (Margie's medications (procedure) 12:00:00 AM EDT anaical, PC) Documentation of current 08/23/2019 MED GEN (Margie's medications (procedure) 12:00:00 AM EDT anaical, ) Documentation of current 08/23/2019 MED GEN (Margie's medications (procedure) 12:00:00 AM EDT anaical, ) OFFICE OUTPATIENT VISIT 08/23/2019 MEDG EN ([facility]ie's 25 MINUTES 12:00:00 AM EDT Medical, ) Documentation of current 12/01/2018 MED GEN (Margie's medications (procedure) 12:00:00 AM EDT [facility], PC) Documentation of current 12/01/2018 MED GEN (Margie's medications (procedure) 12:00:00 AM EDT anaical, ) OFFICE OUTPATIENT VISIT 12/01/2018 MEDG EN (Margie's 15 MINUTES 12:00:00 AM EDT Medical, ) COLLECTION VENOUS BLOOD 12/01/2018 MEDG EN (Margie's VENIPUNCTURE 12:00:00 AM EDT Medical, ) Documentation of current 12/01/2018 MED GEN (Margie's medications (procedure) 12:00:00 AM EDT [facility], PC) Documentation of current 12/01/2018 MED GEN (Margie's medications (procedure) 12:00:00 AM EDT anaical, ) OFFICE OUTPATIENT VISIT 12/01/2018 MEDG EN ([facility]ie's 15 MINUTES 12:00:00 AM EDT Medical, PC) COLLECTION VENOUS BLOOD 12/01/2018 MEDG EN (Margie's VENIPUNCTURE 12:00:00 AM EDT Medical, ) Documentation of current 12/01/2018 MED GEN (Margie's medications (procedure) 12:00:00 AM EDT anaical, PC) Documentation of current 12/01/2018 MED GEN (Margie's medications (procedure) 12:00:00 AM EDT edical, ) OFFICE OUTPATIENT VISIT 12/01/2018 MEDG EN (Margie's 15 MINUTES 12:00:00 AM EDT Medical, PC) COLLECTION VENOUS BLOOD 12/01/2018 MEDG EN (Margie's VENIPUNCTURE 12:00:00 AM EDT [facility], ) Documentation of current 12/01/2018 MED GEN (Margie's medications (procedure) 12:00:00 AM EDT [facility], ) Documentation of current 12/01/2018 MED GEN (Margie's medications (procedure) 12:00:00 AM EDT [facility], ) OFFICE OUTPATIENT VISIT 12/01/2018 MEDG EN (Margie's 15 MINUTES 12:00:00 AM EDT [facility], ) COLLECTION VENOUS BLOOD 12/01/2018 MEDG EN [facility] 12/01/2018 MED GEN (Margie's medications (procedure) 12:00:00 AM EDT [facility], ) Documentation of current 12/01/2018 MED GEN (Margie's medications (procedure) 12:00:00 AM EDT [facility], ) OFFICE OUTPATIENT VISIT 12/01/2018 MEDG EN [facility]EN[facility] BLOOD 12/01/2018 MEDG EN [facility] current 12/01/2018 MED GEN (Margie's medications (procedure) 12:00:00 AM EDT [facility], ) Documentation of current 12/01/2018 MED GEN (Margie's medications (procedure) 12:00:00 AM EDT [facility], ) OFFICE OUTPATIENT VISIT 12/01/2018 MEDG EN (Margie's 15 MINUTES 12:00:00 AM EDT [facility], ) COLLECTION VENOUS BLOOD 12/01/2018 MEDG EN ([facility]ation of current 12/01/2018 MED GEN (Margie's medications (procedure) 12:00:00 AM EDT [facility], ) Documentation of current 12/01/2018 MED GEN (Margie's medications (procedure) 12:00:00 AM EDT [facility], ) OFFICE OUTPATIENT VISIT 12/01/2018 MEDG EN ([facility]ie's 15 MINUTES 12:00:00 AM EDT [facility], ) COLLECTION VENOUS BLOOD 12/01/2018 MEDG EN ([facility] VENIPUNCTURE 12:00:00 AM EDT Medical, ) Documentation of current 12/01/2018 MED GEN (Margie's medications (procedure) 12:00:00 AM EDT [facility], ) Documentation of current 12/01/2018 MED GEN (Margie's medications (procedure) 12:00:00 AM EDT [facility], ) OFFICE OUTPATIENT VISIT 12/01/2018 MEDG EN ([facility] 15 MINUTES 12:00:00 AM EDT Medical, ) COLLECTION VENOUS BLOOD 12/01/2018 MEDG EN ([facility] VENIPUNCTURE 12:00:00 AM ED Medical, ) OFFICE OUTPATIENT VISIT 10/14/2018 MEDG EN ([facility] 15 MINUTES 12:00:00 AM ED Medical, ) Documentation of current 10/14/2018 MED GEN (Margie's medications (procedure) 12:00:00 AM EDT [facility], ) Documentation of current 10/14/2018 MED GEN (Margie's medications (procedure) 12:00:00 AM EDT [facility], ) Documentation of current 10/14/2018 MED GEN (Margie's medications (procedure) 12:00:00 AM EDT [facility], PC) Documentation of current 10/14/2018 MED [facility] 10[facility]14/2018 MED GEN (Margie's medications (procedure) 12:00:00 AM EDT [facility], PC) Documentation of current 10/14/2018 MED GEN (Margie's medications (procedure) 12:00:00 AM EDT [facility], PC) Documentation of current 10/14/2018 MED GEN (Margie's medications (procedure) 12:00:00 AM EDT [facility], PC) Documentation of current 10/14/2018 MED GEN (Margie's medications (procedure) 12:00:00 AM EDT ana[facility], ) OFFICE OUTPATIENT VISIT 10/14/2018 MEDG EN ([facility] 15 MINUTES 12:00:00 AM ED Medical, ) Documentation of current 10/14/2018 MED GEN (Margie's medications (procedure) 12:00:00 AM EDT [facility]) Documentation of current 10/14/2018 MED GEN (Margie's medications (procedure) 12:00:00 AM EDT [facility]) Documentation of current 10/14/2018 MED GEN ([facility] medications (procedure) 12:00:00 AM EDT [facility]) Documentation of current 10/14/2018 MED GEN ([facility]ie[facility] medications (procedure) 12:00:00 AM EDT [facility]) Documentation of current 10/14/2018 MED GEN ([facility]ie[facility] medications (procedure) 12:00:00 AM EDT [facility]) Documentation of current 10/14/2018 MED GEN ([facility]ie[facility] medications (procedure) 12:00:00 AM EDT [facility]) Documentation of current 10/14/2018 MED GEN ([facility]ie[facility] medications (procedure) 12:00:00 AM EDT [facility]) Documentation of current 10/14/2018 MED GEN (Margie's medications (procedure) 12:00:00 AM EDT [facility], [facility]) OFFICE OUTPATIENT VISIT 10/14/2018 MEDG EN ([facility]'s 15 MINUTES 12:00:00 AM [facility], [facility]) Documentation of current 10/14/2018 MED GEN (Margie's medications (procedure) 12:00:00 AM EDT [facility]) Documentation of current 10/14/2018 MED GEN ([facility]ie's medications (procedure) 12:00:00 AM EDT [facility]) Documentation of current 10/14/2018 MED GEN ([facility]ie's medications (procedure) 12:00:00 AM EDT [facility]) Documentation of current 10/14/2018 MED GEN ([facility]ie[facility] medications (procedure) 12:00:00 AM EDT [facility]) Documentation of current 10/14/2018 MED GEN ([facility]ie's medications (procedure) 12:00:00 AM EDT [facility]) Documentation of current 10/14/2018 MED GEN ([facility]ie[facility] medications (procedure) 12:00:00 AM EDT [facility]) Documentation of current 10/14/2018 MED GEN ([facility]ie's medications (procedure) 12:00:00 AM EDT [facility]) Documentation of current 10/14/2018 MED GEN ([facility]ie's medications (procedure) 12:00:00 AM EDT [facility]) OFFICE OUTPATIENT VISIT 10/14/2018 MEDG EN ([facility] 15 MINUTES 12:00:00 AM EDT [facility], PC) Documentation of current 10/14/2018 MED GEN (Margie's medications (procedure) 12:00:00 AM EDT [facility], PC) Documentation of current 10/14/2018 MED GEN ([facility]ie's medications (procedure) 12:00:00 AM EDT [facility], PC) Documentation of current 10/14/2018 MED GEN ([facility]ie's medications (procedure) 12:00:00 AM EDT [facility], PC) Documentation of current 10/14/2018 MED GEN ([facility]ie's medications (procedure) 12:00:00 AM EDT [facility]) Documentation of current 10/14/2018 MED GEN ([facility]ie's medications (procedure) 12:00:00 AM EDT [facility]) Documentation of current 10/14/2018 MED GEN ([facility]ie[facility] medications (procedure) 12:00:00 AM EDT [facility]) Documentation of current 10/14/2018 MED GEN ([facility]ie's medications (procedure) 12:00:00 AM EDT [facility]) Documentation of current 10/14/2018 MED GEN ([facility]ie[facility] medications (procedure) 12:00:00 AM EDT [facility]) OFFICE OUTPATIENT VISIT 10/14/2018 MEDG EN ([facility] 15 MINUTES 12:00:00 AM EDT [facility], PC) Documentation of current 10/14/2018 MED GEN ([facility]ie's medications (procedure) 12:00:00 AM EDT [facility]) Documentation of current 10/14/2018 MED GEN ([facility]ie's medications (procedure) 12:00:00 AM EDT [facility]) Documentation of current 10/14/2018 MED GEN ([facility]ie[facility] medications (procedure) 12:00:00 AM EDT [facility]) Documentation of current 10/14/2018 MED GEN ([facility] medications (procedure) 12:00:00 AM EDT [facility]) Documentation of current 10/14/2018 MED GEN ([facility]ie's medications (procedure) 12:00:00 AM EDT [facility]) Documentation of current 10/14/2018 MED GEN ([facility]ie[facility] medications (procedure) 12:00:00 AM EDT [facility]) Documentation of current 10/14/2018 MED GEN ([facility]ie's medications (procedure) 12:00:00 AM EDT [facility], PC) Documentation of current 10/14/2018 MED GEN ([facility]ie[facility] medications (procedure) 12:00:00 AM EDT [facility]) Documentation of current 10/14/2018 MED GEN ([facility]ie's medications (procedure) 12:00:00 AM EDT [facility], PC) Documentation of current 10/14/2018 MED GEN ([facility]ie[facility] medications (procedure) 12:00:00 AM EDT [facility], PC) Documentation of current 10/14/2018 MED GEN ([facility]ie[facility] medications (procedure) 12:00:00 AM EDT [facility]) Documentation of current 10/14/2018 MED GEN ([facility]ie's medications (procedure) 12:00:00 AM EDT [facility], PC) Documentation of current 10/14/2018 MED GEN ([facility]ie[facility] medications (procedure) 12:00:00 AM EDT [facility]) Documentation of current 10/14/2018 MED GEN (Margie's medications (procedure) 12:00:00 AM EDT [facility], PC) Documentation of current 10/14/2018 MED GEN ([facility]ie's medications (procedure) 12:00:00 AM EDT [facility]) Documentation of current 10/14/2018 MED GEN (Margie's medications (procedure) 12:00:00 AM EDT [facility]) OFFICE OUTPATIENT VISIT 10/14/2018 MEDG EN ([facility]ie's 15 MINUTES 12:00:00 AM [facility], [facility]) Documentation of current 10/14/2018 MED GEN (Margie's medications (procedure) 12:00:00 AM EDT ana[facility], PC) Documentation of current 10/14/2018 MED GEN (Margie's medications (procedure) 12:00:00 AM EDT [facility]) Documentation of current 10/14/2018 MED GEN (Margie's medications (procedure) 12:00:00 AM EDT [facility], ) Documentation of current 10/14/2018 MED GEN (Margie's medications (procedure) 12:00:00 AM EDT [facility]) Documentation of current 10/14/2018 MED GEN (Margie's medications (procedure) 12:00:00 AM EDT [facility], PC) Documentation of current 10/14/2018 MED GEN ([facility]ie's medications (procedure) 12:00:00 AM EDT [facility]) Documentation of current 10/14/2018 MED GEN (Margie's medications (procedure) 12:00:00 AM EDT [facility]) Documentation of current 10/14/2018 MED GEN (Margie's medications (procedure) 12:00:00 AM EDT [facility]) OFFICE OUTPATIENT VISIT 10/14/2018 MEDG EN ([facility]ie's 15 MINUTES 12:00:00 AM [facility], ) Documentation of current 10/14/2018 MED GEN (Margie's medications (procedure) 12:00:00 AM EDT [facility]) Documentation of current 10/14/2018 MED GEN (Margie's medications (procedure) 12:00:00 AM EDT [facility], [facility]) Documentation of current 10/14/2018 MED GEN (Margie's medications (procedure) 12:00:00 AM EDT [facility], [facility]) Documentation of current 10/14/2018 MED GEN (Margie's medications (procedure) 12:00:00 AM EDT [facility], PC) Documentation of current 10/14/2018 MED GEN (Margie's medications (procedure) 12:00:00 AM EDT [facility]) Documentation of current 10/14/2018 MED GEN (Margie's medications (procedure) 12:00:00 AM EDT [facility], PC) Documentation of current 10/14/2018 MED GEN (Margie's medications (procedure) 12:00:00 AM EDT [facility], PC) Documentation of current 10/14/2018 MED GEN (Margie's medications (procedure) 12:00:00 AM EDT [facility], PC) OFFICE OUTPATIENT VISIT 10/14/2018 MEDG EN ([facility]ie's 15 MINUTES 12:00:00 AM [facility], ) Results ID Date Data Source [id number] 10/27/2019 12:00:00 AM EDT [facility], ) Name Value Range Interpretation Code Description Data Linda rce(s) Supporting Document(s ) ID Date Data Source [id number] 10/27/2019 12:00:00 AM EDT [facility] ([facility], ) Name Value Range Interpretation Code Description Data Linda rce(s) Supporting Document(s ) ANAM Normal (applies to MEDGEN (St Interpreta non-numeric results) [facility], tion:U ) ID Date Data Source [id number] 10/27/2019 12:00:00 AM EDT [facility] ([facility], ) Name Value Range Interpretation Code Description Data Supporting Source(s) Document(s ) Intact PTH Normal (applies to MEDGEN (St non-numeric Rai's results) [facility], ) PTH, Intact 37 pg/mL Normal (applies to MEDGEN (S t non-numeric [facility]'s results) [facility] [place]) ID Date Data Source [id number] 10/27/2019 12:00:00 AM EDT [facility] ([facility], ) Name Value Range Interpretation Description Data Sup porting Code Source(s) Document(s ) Immunofixation Normal (applies MEDGEN (S t Result, Serum to non-numeric [facility]ai's results) [facility] [place]) Immunoglobulin M, 55 mg/dL Normal (applies MEDGEN (St Qn, Serum to non-numeric [facility]ai's results) [facility] [place]) Immunoglobulin G, 1537 Normal (applies MEDGEN (St Qn, Serum mg/dL to non-numeric [facility]ai's results) [facility] [place]) Immunoglobulin A, 474 Above high normal MEDG EN (St Qn, Serum mg/dL [facility] [place]) ID Date Data Source [id number] 10/27/2019 12:00:00 AM EDT [facility] ([facility], ) Name Value Range Interpretation Description Data Sup porting Code Source(s) Document(s ) Cholesterol 124 Normal (applies MEDGEN (St [Mass/volume] in mg/dL to non-numeric [facility]ai's Serum or Plasma results) [facility], ) Triglyceride 120 Normal (applies MEDGEN (St [Mass/volume] in mg/dL to non-numeric [facility] Serum or Plasma results) Medical, ) HDL Cholesterol 36 mg/dL Below low normal MED[facility] ([facility], ) VLDL Cholesterol 24 mg/dL Normal (applies MEDGEN (St Kameron to non-numeric Rai's results) [facility], ) LDL Cholesterol 64 mg/dL Normal (applies MEDGEN ( St Calc to non-numeric Rai's results) [facility], ) ID Date Data Source [id number] 10/27/2019 12:00:00 AM EDT [facility] ([facility], ) Name Value Range Interpretation Description Data Sup porting Code Source(s) Document(s ) Protein,To 11.7 mg/dL Normal (applies to MEDGEN (S t tomas,Urine non-numeric Rai's results) [facility], ) Albumin, U 37.9 % Normal (applies to MEDGEN (St non-numeric [facility]ai's results) [facility], ) Alpha-1-Gl 1.4 % Normal (applies to MEDGEN (St obulin, U non-numeric Rai's results) [facility], ) Alpha-2-Gl 15.6 % Normal (applies to MEDGEN (St obulin, U non-numeric Rai's results) [facility], ) Beta 32.5 % Normal (applies to MEDGEN (St Globulin, non-numeric Rai's U results) [facility], ) Gamma 12.5 % Normal (applies to MEDGEN (St Globulin, non-numeric Rai's U results) [facility], ) Please Normal (applies to MEDGEN (St note: non-numeric [facility]'s results) Medical, ) M-lA, % Not Observed Normal (applies to MEDGEN (St non-numeric [facility]ai's results) [facility], ) PDF . Normal (applies to MEDGEN (St non-numeric Rai's results) [facility], ) ID Date Data Source [id number] 10/27/2019 12:00:00 AM EDT [facility] ([facility], ) Name Value Range Interpretation Description Data Sup porting Code Source(s) Document(s ) Urea nitrogen 12 mg/dL Normal (applies MEDGEN (St [Mass/volume] to non-numeric Rai's in Serum or results) [facility], ) Plasma Glucose 95 mg/dL Normal (applies MEDGEN (St [Mass/volume] to non-numeric [facility]ai's in Urine results) Medical, ) collected for unspecified duration eGFR If 118 Normal (applies MEDGEN (St NonAfricn Am mL/min/1. to non-numeric [facility]ai's 73 results) Medical, PC) Creatinine 0.77 Normal (applies MEDGEN (St [Interpretation mg/dL to non-numeric Rai's ] in Urine results) Medical, ) eGFR If Africn 136 Normal (applies MEDGEN (S t Am mL/min/1. to non-numeric Rai's 73 results) Medical, ) BUN/Creatinine 16 Normal (applies MEDGEN (S t Ratio to non-numeric [facility]ai's results) Medical, ) Potassium 4.3 Normal (applies MEDGEN (St [Mass/volume] mmol/L to non-numeric [facility]ai's in Blood results) Medical, PC) Chloride 98 mmol/L Normal (applies MEDGEN (St [Moles/volume] to non-numeric Rai's in Serum or results) Medical, ) Plasma Sodium 138 Normal (applies MEDGEN (St [Moles/volume] mmol/L to non-numeric [facility]ai's in Serum or results) Medical, PC) Plasma Carbon dioxide, 24 mmol/L Normal (applies MEDGEN ( St total to non-numeric [facility]ai's [Moles/volume] results) Medical, PC) in Serum or Plasma Calcium 9.8 mg/dL Normal (applies MEDGEN (St [Moles/volume] to non-numeric [facility]ai's in Urine results) Medical, ) collected for unspecified duration ID Date Data Source [id number] 10/27/2019 12:00:00 AM EDT [facility] Name Value Range Interpretation Description Data Sup porting Code Source(s) Document(s ) Protein 7.4 g/dL Normal (applies MEDGEN (St [Mass/volume] in to non-numeric [facility]ai's Serum or Plasma results) [facility], PC) Xqewm-3-Vsmaakbb 0.2 g/dL Normal (applies MEDGEN (St to non-numeric [facility]ai's results) Medical, ) Microalbumin 3.8 g/dL Normal (applies MEDGEN (St [Mass/time] in to non-numeric [facility]'s Urine collected results) Medical, for unspecified PC) duration Beta globulin 1.3 g/dL Normal (applies MEDGEN (St [Mass/volume] in to non-numeric [facility]'s Urine by results) Medical, Electrophoresis PC) Qurqt-3-Pfnxacrc 0.7 g/dL Normal (applies MEDGEN (St to non-numeric Rai's results) Medical, ) Gamma globulin 1.5 g/dL Normal (applies MEDGEN (S t [Mass/volume] by to non-numeric [facility]'s Electrophoresis results) Medical, in Urine PC) collected for unspecified duration M-Al Not Normal (applies MEDGEN (St Observed to non-numeric [facility]ai's results) Medical, ) A/G Ratio 1.1 Normal (applies MEDGEN (St to non-numeric [facility]'s results) Medical, ) Globulin, Total 3.6 g/dL Normal (applies MEDGEN ( St to non-numeric [facility]'s results) Medical, ) PDF . Normal (applies MEDGEN (St to non-numeric [facility]ai's results) Medical, ) Please note: Normal (applies MEDGEN (St to non-numeric [facility]'s results) Medical, ) ID Date Data Source [id number] 10/27/2019 12:00:00 AM EDT [facility], ) Name Value Range Interpretation Code Description Data Linda rce(s) Supporting Document(s ) ID Date Data Source [id number] 10/27/2019 12:00:00 AM EDT [facility] ([facility], ) Name Value Range Interpretation Code Description Data Linda rce(s) Supporting Document(s ) ANAM Normal (applies to MEDGEN (St Interpreta non-numeric results) [facility], tion:U ) ID Date Data Source [id number] 10/27/2019 12:00:00 AM EDT [facility] ([facility], ) Name Value Range Interpretation Code Description Data Supporting Source(s) Document(s ) PTH, Intact 37 pg/mL Normal (applies to MEDGEN (S t non-numeric [facility]'s results) Medical, ) Intact PTH Normal (applies to MEDGEN (St non-numeric [facility]'s results) Medical, ) ID Date Data Source [id number] 10/27/2019 12:00:00 AM EDT [facility] ([facility], ) Name Value Range Interpretation Description Data Sup porting Code Source(s) Document(s ) Immunofixation Normal (applies MEDGEN (S t Result, Serum to non-numeric [facility]ai's results) [facility], ) Immunoglobulin G, 1537 Normal (applies MEDGEN (St Qn, Serum mg/dL to non-numeric [facility]ai's results) [facility], ) Immunoglobulin A, 474 Above high normal MEDG EN (St Qn, Serum mg/dL [facility], ) Immunoglobulin M, 55 mg/dL Normal (applies MEDGEN (St Qn, Serum to non-numeric Rai's results) [facility], ) ID Date Data Source [id number] 10/27/2019 12:00:00 AM EDT MEDGEN ([facility], ) Name Value Range Interpretation Description Data Sup porting Code Source(s) Document(s ) Triglyceride 120 Normal (applies MEDGEN (St [Mass/volume] in mg/dL to non-numeric [facility]ai's Serum or Plasma results) [facility], ) Cholesterol 124 Normal (applies MEDGEN (St [Mass/volume] in mg/dL to non-numeric Rai's Serum or Plasma results) [facility], ) HDL Cholesterol 36 mg/dL Below low normal MEDGEN ([facility], ) LDL Cholesterol 64 mg/dL Normal (applies MEDGEN ( St Calc to non-numeric Rai's results) [facility], ) VLDL Cholesterol 24 mg/dL Normal (applies MEDGEN (St [place] to non-numeric Rai's results) [facility], ) ID Date Data Source [id number] 10/27/2019 12:00:00 AM EDT MEDGEN ([facility], ) Name Value Range Interpretation Description Data Sup porting Code Source(s) Document(s ) Protein,To 11.7 mg/dL Normal (applies to MEDGEN (S t tomas,Urine non-numeric Rai's results) [facility], ) Albumin, U 37.9 % Normal (applies to MEDGEN (St non-numeric [facility]ai's results) [facility], ) Alpha-1-Gl 1.4 % Normal (applies to MEDGEN (St obulin, U non-numeric Rai's results) [facility], ) Beta 32.5 % Normal (applies to MEDGEN (St Globulin, non-numeric Rai's U results) [facility], ) Alpha-2-Gl 15.6 % Normal (applies to MEDGEN (St obulin, U non-numeric [facility]'s results) Medical, ) Gamma 12.5 % Normal (applies to MEDGEN (St Globulin, non-numeric [facility]'s U results) Medical, ) M-Al, % Not Observed Normal (applies to MEDGEN (St non-numeric [facility]'s results) Medical, ) Please Normal (applies to MEDGEN (St note: non-numeric [facility]'s results) Medical, ) PDF . Normal (applies to MEDGEN (St non-numeric [facility]'s results) Medical, ) ID Date Data Source [id number] 10/27/2019 12:00:00 AM EDT [facility] ([facility], ) Name Value Range Interpretation Description Data Sup porting Code Source(s) Document(s ) Urea nitrogen 12 mg/dL Normal (applies MEDGEN (St [Mass/volume] to non-numeric [facility]ai's in Serum or results) Medical, ) Plasma Glucose 95 mg/dL Normal (applies MEDGEN (St [Mass/volume] to non-numeric [facility]ai's in Urine results) Medical, ) collected for unspecified duration Creatinine 0.77 Normal (applies MEDGEN (St [Interpretation mg/dL to non-numeric Rai's ] in Urine results) Medical, ) eGFR If 118 Normal (applies MEDGEN (St NonAfricn Am mL/min/1. to non-numeric Rai's 73 results) Medical, ) eGFR If Africn 136 Normal (applies MEDGEN (S t Am mL/min/1. to non-numeric [facility]ai's 73 results) Medical, ) BUN/Creatinine 16 Normal (applies MEDGEN (S t Ratio to non-numeric [facility]ai's results) Medical, ) Potassium 4.3 Normal (applies MEDGEN (St [Mass/volume] mmol/L to non-numeric [facility]ai's in Blood results) Medical, ) Sodium 138 Normal (applies MEDGEN (St [Moles/volume] mmol/L to non-numeric [facility]ai's in Serum or results) Medical, ) Plasma Carbon dioxide, 24 mmol/L Normal (applies MEDGEN ( St total to non-numeric Rai's [Moles/volume] results) Medical, ) in Serum or Plasma Chloride 98 mmol/L Normal (applies MEDGEN (St [Moles/volume] to non-numeric [facility]'s in Serum or results) Medical, PC) Plasma Calcium 9.8 mg/dL Normal (applies MEDGEN (St [Moles/volume] to non-numeric [facility]'s in Urine results) Medical, PC) collected for unspecified duration ID Date Data Source [id number] 10/27/2019 12:00:00 AM EDT [facility] Name Value Range Interpretation Description Data Sup porting Code Source(s) Document(s ) Protein 7.4 g/dL Normal (applies MEDGEN (St [Mass/volume] in to non-numeric [facility]ai's Serum or Plasma results) Medical, PC) Microalbumin 3.8 g/dL Normal (applies MEDGEN (St [Mass/time] in to non-numeric [facility]ai's Urine collected results) Medical, for unspecified PC) duration Khxwq-2-Gxfmzetr 0.2 g/dL Normal (applies MEDGEN (St to non-numeric Rai's results) Medical, PC) Kjkpr-4-Ubkhexuw 0.7 g/dL Normal (applies MEDGEN (St to non-numeric Rai's results) Medical, PC) Gamma globulin 1.5 g/dL Normal (applies MEDGEN (S t [Mass/volume] by to non-numeric [facility]'s Electrophoresis results) Medical, in Urine PC) collected for unspecified duration Beta globulin 1.3 g/dL Normal (applies MEDGEN (St [Mass/volume] in to non-numeric [facility]'s Urine by results) Medical, Electrophoresis PC) M-Al Not Normal (applies MEDGEN (St Observed to non-numeric [facility]ai's results) Medical, PC) Globulin, Total 3.6 g/dL Normal (applies MEDGEN ( St to non-numeric [facility]'s results) Medical, PC) Please note: Normal (applies MEDGEN (St to non-numeric Rai's results) Medical, PC) A/G Ratio 1.1 Normal (applies MEDGEN (St to non-numeric [facility]ai's results) Medical, PC) PDF . Normal (applies MEDGEN (St to non-numeric [facility]'s results) Medical, PC) ID Date Data Source [id number] 10/07/2019 10:25:00 AM EDT [facility] Name Value Range Interpretation Description Data Sup porting Code Source(s) Document(s ) SARS [facility] coronavirus 2 RNA This lab was ordered by [facility] and reported by [facility]. ID Date Data Source [id number] 09/06/2019 12:00:00 AM EDT [facility]) Name Value Range Interpretation Code Description Data Linda rce(s) Supporting Document(s ) SARS-CoV- Positive Abnormal (applies MEDGEN (St 2 to non-numeric [facility]'s Antibody, results) Medical, ) IgG ID Date Data Source [id number] 09/06/2019 12:00:00 AM EDT [facility] ([facility]) Name Value Range Interpretation Code Description Data Linda rce(s) Supporting Document(s ) SARS-CoV- Negative Normal (applies to MEDGEN (St 2 non-numeric [facility]'s Antibody, results) Medical, ) IgM ID Date Data Source [id number] 09/06/2019 12:00:00 AM EDT [facility] ([facility] Name Value Range Interpretation Description Data Sup porting Code Source(s) Document(s ) INR 1.0 Normal (applies MEDGEN (St to non-numeric [facility]'s results) Medical, ) aPTT 34 sec Above high normal [facility] ([facility], ) Prothrombin 10.6 sec Normal (applies MEDGEN (St Time to non-numeric [facility]'s results) Medical, ) ID Date Data Source [id number] 09/06/2019 12:00:00 AM EDT [facility] Name Value Range Interpretation Description Data Sup porting Code Source(s) Document(s ) Cholesterol 132 Normal (applies MEDGEN (St [Mass/volume] in mg/dL to non-numeric [facility]'s Serum or Plasma results) Medical, ) HDL Cholesterol 35 mg/dL Below low normal [facility] ([facility], ) Triglyceride 282 Above high normal MEDGEN (S t [Mass/volume] in mg/dL [facility] Serum or Plasma Medical, ) VLDL Cholesterol 56 mg/dL Above high normal MEDGE N ([facility], ) LDL Cholesterol 41 mg/dL Normal (applies MEDGEN ( St Calc to non-numeric [facility]'s results) Medical, ) ID Date Data Source [id number] 09/06/2019 12:00:00 AM EDT [facility] ([facility]) Name Value Range Interpretation Description Data Sup porting Code Source(s) Document(s ) Glucose 105 Above high [facility] (St [Mass/volume] in mg/dL normal [facility] Urine collected for Medical, unspecified PC) duration Urea nitrogen 9 mg/dL Normal (applies [facility] (St [Mass/volume] in to non-numeric [facility] Serum or Plasma results) [facility], [facility]) eGFR If NonAfricn 122 Normal (applies [facility] (St Am mL/min/1 to non-numeric [facility] .73 results) [facility], PC) Creatinine 0.70 Below low normal [facility] (St [Interpretation] in mg/dL [facility] Urine [facility], ) eGFR If Africn Am 141 Normal (applies [facility] (St mL/min/1 to non-numeric [facility]'s .73 results) Medical, PC) Sodium 139 Normal (applies [facility] (St [Moles/volume] in mmol/L to non-numeric [facility] Serum or Plasma results) Medical, ) BUN/Creatinine 13 Normal (applies [facility] (S t Ratio to non-numeric [facility] results) [facility], PC) Potassium 4.5 Normal (applies [facility] (St [Mass/volume] in mmol/L to non-numeric [facility] Blood results) Medical, PC) Chloride 97 Normal (applies [facility] (St [Moles/volume] in mmol/L to non-numeric [facility] Serum or Plasma results) Medical, PC) Calcium 10.4 Above high [facility] (St [Moles/volume] in mg/dL normal [facility] Urine collected for Medical, unspecified PC) duration Carbon dioxide, 29 Normal (applies [facility] ( St total mmol/L to non-numeric [facility]'s [Moles/volume] in results) Medical, Serum or Plasma PC) Protein 8.2 g/dL Normal (applies [facility] (St [Mass/volume] in to non-numeric [facility] Serum or Plasma results) Medical, PC) Microalbumin 4.8 g/dL Normal (applies [facility] (St [Mass/time] in to non-numeric [facility] Urine collected for results) Medical, unspecified PC) duration Globulin, Total 3.4 g/dL Normal (applies [facility] ( St to non-numeric [facility]'s results) Medical, PC) Bilirubin.total <0.2 Normal (applies [facility] ( St [Mass/volume] in to non-numeric [facility] Serum or Plasma results) Medical, ) A/G Ratio 1.4 Normal (applies [facility] (St to non-numeric [facility]'s results) Medical, ) Alkaline 92 IU/L Normal (applies [facility] (St phosphatase to non-numeric R[facility]'s [Enzymatic results) Medical, activity/volume] in PC) Serum, Plasma or Blood Aspartate 19 IU/L Normal (applies [facility] (St aminotransferase to non-numeric Rai's [Enzymatic results) Medical, activity/volume] in ) Serum or Plasma Alanine 27 IU/L Normal (applies [facility] (St aminotransferase to non-numeric R[facility]'s [Enzymatic results) Medical, activity/volume] in ) Serum or Plasma ID Date Data Source [id number] 09/06/2019 12:00:00 AM EDT [facility] ([facility] Name Value Range Interpretation Description Data Sup porting Code Source(s) Document(s ) Leukocytes 8.2 Normal (applies [facility] (St [#/volume] in x10E3/uL to non-numeric [facility] Blood by results) Medical, ) Automated count Hemoglobin 14.5 Normal (applies [facility] (St [Mass/volume] in g/dL to non-numeric [facility] Blood results) Medical, ) Erythrocytes 4.91 Normal (applies [facility] (St [#/volume] in x10E6/uL to non-numeric [facility] Blood by results) Medical, ) Automated count MCV 87 fL Normal (applies [facility] (St to non-numeric [facility]'s results) Medical, ) Hematocrit 42.9 % Normal (applies [facility] (St [Volume to non-numeric Rai's Fraction] of results) Medical, ) Blood by Automated count MCH 29.5 pg Normal (applies [facility] (St to non-numeric [facility]'s results) Medical, ) MCHC 33.8 Normal (applies [facility] (St g/dL to non-numeric [facility]'s results) Medical, ) Platelets 330 Normal (applies [facility] (St [#/area] in x10E3/uL to non-numeric [facility] Blood by results) Medical, ) Microscopy high power field RDW 13.3 % Normal (applies [facility] (St to non-numeric [facility]'s results) Medical, ) Monocytes 10 % Normal (applies [facility] (St [#/volume] in to non-numeric [facility]'s Cord blood results) [facility], ) Lymphs 34 % Normal (applies [facility] (St to non-numeric [facility]ai's results) [facility], ) Neutrophils [#] 53 % Normal (applies [facility] ( St in Body fluid by to non-numeric [facility]'s Manual count results) [facility], ) Eos 2 % Normal (applies [facility] (St to non-numeric [facility]'s results) [facility], ) Basos 1 % Normal (applies [facility] (St to non-numeric [facility]'s results) [facility], ) Lymphs 2.8 Normal (applies [facility] (St (Absolute) x10E3/uL to non-numeric [facility]'s results) [facility], ) Neutrophils 4.4 Normal (applies [facility] (St (Absolute) x10E3/uL to non-numeric R[facility]'s results) [facility], ) Eos (Absolute) 0.1 Normal (applies [facility] (S t x10E3/uL to non-numeric Rai's results) [facility], ) Monocytes(Absolu 0.8 Normal (applies [facility] (St te) x10E3/uL to non-numeric Rai's results) [facility], ) Baso (Absolute) 0.1 Normal (applies [facility] ( St x10E3/uL to non-numeric Rai's results) [facility], ) Immature 0 % Normal (applies [facility] (St Granulocytes to non-numeric Rai's results) [facility], ) Immature Grans 0.0 Normal (applies [facility] (S t (Abs) x10E3/uL to non-numeric [facility]'s results) [facility], ) ID Date Data Source [id number] 09/06/2019 12:00:00 AM EDT [facility] ([facility], ) Name Value Range Interpretation Code Description Data Linda rce(s) Supporting Document(s ) SARS-CoV- Positive Abnormal (applies [facility] (St 2 to non-numeric [facility] Antibody, results) [facility] [place]) IgG ID Date Data Source [id number] 09/06/2019 12:00:00 AM EDT [facility] ([facility], ) Name Value Range Interpretation Code Description Data Linda rce(s) Supporting Document(s ) SARS-CoV- Negative Normal (applies to [facility] (St 2 non-numeric [facility]'s Antibody, results) Medical, ) IgM ID Date Data Source [id number] 09/06/2019 12:00:00 AM EDT [facility] ([facility], ) Name Value Range Interpretation Description Data Sup porting Code Source(s) Document(s ) Prothrombin 10.6 sec Normal (applies [facility] (St Time to non-numeric Rai's results) Medical, ) INR 1.0 Normal (applies [facility] (St to non-numeric Rai's results) [facility], ) aPTT 34 sec Above high normal [facility] ([facility], ) ID Date Data Source [id number] 09/06/2019 12:00:00 AM EDT [facility] ([facility] [place] [facility], ) Name Value Range Interpretation Description Data Sup porting Code Source(s) Document(s ) Cholesterol 132 Normal (applies [facility] (St [Mass/volume] in mg/dL to non-numeric [facility]'s Serum or Plasma results) [facility], ) Triglyceride 282 Above high normal [facility] (S t [Mass/volume] in mg/dL [facility] Serum or Plasma [facility], ) VLDL Cholesterol 56 mg/dL Above high normal [facility] N ([facility], ) HDL Cholesterol 35 mg/dL Below low normal [facility] ([facility]) LDL Cholesterol 41 mg/dL Normal (applies [facility] ( St Calc to non-numeric Rai's results) [facility], ) ID Date Data Source [id number] 09/06/2019 12:00:00 AM EDT [facility] ([facility], ) Name Value Range Interpretation Description Data Sup porting Code Source(s) Document(s ) Glucose 105 Above high [facility] (St [Mass/volume] in mg/dL normal [facility] Urine collected for Medical, unspecified PC) duration Urea nitrogen 9 mg/dL Normal (applies [facility] (St [Mass/volume] in to non-numeric R[facility]'s Serum or Plasma results) [facility], ) Creatinine 0.70 Below low normal [facility] (St [Interpretation] in mg/dL [facility]'s Urine [facility], ) eGFR If Africn Am 141 Normal (applies [facility] (St mL/min/1 to non-numeric Rai's .73 results) Medical, ) eGFR If NonAfricn 122 Normal (applies [facility] (St Am mL/min/1 to non-numeric Rai's .73 results) Medical, PC) BUN/Creatinine 13 Normal (applies [facility] (S t Ratio to non-numeric [facility]'s results) Medical, PC) Sodium 139 Normal (applies [facility] (St [Moles/volume] in mmol/L to non-numeric [facility]'s Serum or Plasma results) Medical, PC) Potassium 4.5 Normal (applies [facility] (St [Mass/volume] in mmol/L to non-numeric [facility] Blood results) Medical, PC) Chloride 97 Normal (applies [facility] (St [Moles/volume] in mmol/L to non-numeric [facility]'s Serum or Plasma results) Medical, PC) Carbon dioxide, 29 Normal (applies [facility] ( St total mmol/L to non-numeric Rai's [Moles/volume] in results) Medical, Serum or Plasma PC) Protein 8.2 g/dL Normal (applies [facility] (St [Mass/volume] in to non-numeric [facility]'s Serum or Plasma results) [facility], PC) Calcium 10.4 Above high [facility] (St [Moles/volume] in mg/dL normal [facility]'s Urine collected for Medical, unspecified PC) duration Microalbumin 4.8 g/dL Normal (applies [facility] (St [Mass/time] in to non-numeric [facility]'s Urine collected for results) Medical, unspecified PC) duration Globulin, Total 3.4 g/dL Normal (applies [facility] ( St to non-numeric Ria's results) Medical, PC) Bilirubin.total <0.2 Normal (applies [facility] ( St [Mass/volume] in to non-numeric [facility]'s Serum or Plasma results) Medical, PC) A/G Ratio 1.4 Normal (applies [facility] (St to non-numeric Rai's results) Medical, PC) Alkaline 92 IU/L Normal (applies [facility] (St phosphatase to non-numeric Rai's [Enzymatic results) Medical, activity/volume] in PC) Serum, Plasma or Blood Alanine 27 IU/L Normal (applies [facility] (St aminotransferase to non-numeric Rai's [Enzymatic results) Medical, activity/volume] in PC) Serum or Plasma Aspartate 19 IU/L Normal (applies [facility] (St aminotransferase to non-numeric R[facility]'s [Enzymatic results) Medical, activity/volume] in PC) Serum or Plasma ID Date Data Source [id number] 09/06/2019 12:00:00 AM EDT [facility] ([facility], ) Name Value Range Interpretation Description Data Sup porting Code Source(s) Document(s ) Leukocytes 8.2 Normal (applies [facility] (St [#/volume] in x10E3/uL to non-numeric [facility]'s Blood by results) Medical, ) Automated count Erythrocytes 4.91 Normal (applies [facility] (St [#/volume] in x10E6/uL to non-numeric [facility]'s Blood by results) Medical, ) Automated count Hemoglobin 14.5 Normal (applies [facility] (St [Mass/volume] in g/dL to non-numeric [facility]'s Blood results) Medical, ) Hematocrit 42.9 % Normal (applies [facility] (St [Volume to non-numeric Rai's Fraction] of results) Medical, ) Blood by Automated count MCV 87 fL Normal (applies [facility] (St to non-numeric Rai's results) Medical, ) MCH 29.5 pg Normal (applies [facility] (St to non-numeric Rai's results) Medical, ) MCHC 33.8 Normal (applies [facility] (St g/dL to non-numeric Rai's results) Medical, ) RDW 13.3 % Normal (applies [facility] (St to non-numeric Rai's results) Medical, ) Platelets 330 Normal (applies [facility] (St [#/area] in x10E3/uL to non-numeric [facility]'s Blood by results) Medical, ) Microscopy high power field Neutrophils [#] 53 % Normal (applies [facility] ( St in Body fluid by to non-numeric R[facility]'s Manual count results) Medical, ) Lymphs 34 % Normal (applies [facility] (St to non-numeric Rai's results) Medical, ) Monocytes 10 % Normal (applies [facility] (St [#/volume] in to non-numeric Rai's Cord blood results) Medical, ) Eos 2 % Normal (applies [facility] (St to non-numeric Rai's results) Medical, ) Basos 1 % Normal (applies [facility] (St to non-numeric Ari's results) Medical, ) Lymphs 2.8 Normal (applies [facility] (St (Absolute) x10E3/uL to non-numeric Rai's results) Medical, ) Neutrophils 4.4 Normal (applies [facility] (St (Absolute) x10E3/uL to non-numeric Rai's results) Medical, ) Monocytes(Absolu 0.8 Normal (applies [facility] (St te) x10E3/uL to non-numeric Rai's results) Medical, ) Eos (Absolute) 0.1 Normal (applies [facility] (S t x10E3/uL to non-numeric Rai's results) Medical, ) Baso (Absolute) 0.1 Normal (applies [facility] ( St x10E3/uL to non-numeric Rai's results) Medical, ) Immature 0 % Normal (applies [facility] (St Granulocytes to non-numeric Rai's results) Medical, ) Immature Grans 0.0 Normal (applies [facility] (S t (Abs) x10E3/uL to non-numeric Rai's results) Medical, ) ID Date Data Source [id number] 09/06/2019 12:00:00 AM EDT [facility] ([facility], ) Name Value Range Interpretation Code Description Data Linda rce(s) Supporting Document(s ) SARS-CoV- Positive Abnormal (applies [facility] (St 2 to non-numeric Rai's Antibody, results) Medical, ) IgG ID Date Data Source [id number] 09/06/2019 12:00:00 AM EDT [facility] ([facility], ) Name Value Range Interpretation Code Description Data Linda rce(s) Supporting Document(s ) SARS-CoV- Negative Normal (applies to [facility] (St 2 non-numeric Rai's Antibody, results) [facility], ) IgM ID Date Data Source [id number] 09/06/2019 12:00:00 AM EDT [facility] ([facility], ) Name Value Range Interpretation Description Data Sup porting Code Source(s) Document(s ) INR 1.0 Normal (applies [facility] (St to non-numeric Rai's results) Medical, ) aPTT 34 sec Above high normal [facility] ([facility], ) Prothrombin 10.6 sec Normal (applies [facility] (St Time to non-numeric Rai's results) Medical, ) ID Date Data Source [id number] 09/06/2019 12:00:00 AM EDT [facility] ([facility], ) Name Value Range Interpretation Description Data Sup porting Code Source(s) Document(s ) Cholesterol 132 Normal (applies [facility] (St [Mass/volume] in mg/dL to non-numeric R[facility]'s Serum or Plasma results) Medical, ) Triglyceride 282 Above high normal [facility] (S t [Mass/volume] in mg/dL Rai's Serum or Plasma [facility], ) LDL Cholesterol 41 mg/dL Normal (applies [facility] ( St Calc to non-numeric Rai's results) Medical, ) VLDL Cholesterol 56 mg/dL Above high normal [facility] N ([facility], ) HDL Cholesterol 35 mg/dL Below low normal [facility] ([facility]) ID Date Data Source [id number] 09/06/2019 12:00:00 AM EDT [facility] ([facility]) Name Value Range Interpretation Description Data Sup porting Code Source(s) Document(s ) Glucose 105 Above high [facility] (St [Mass/volume] in mg/dL normal R[facility]'s Urine collected for Medical, unspecified PC) duration Urea nitrogen 9 mg/dL Normal (applies [facility] (St [Mass/volume] in to non-numeric Rai's Serum or Plasma results) Medical, ) eGFR If NonAfricn 122 Normal (applies [facility] (St Am mL/min/1 to non-numeric Rai's .73 results) Medical, ) Creatinine 0.70 Below low normal [facility] (St [Interpretation] in mg/dL Rai's Urine [facility], ) eGFR If Africn Am 141 Normal (applies [facility] (St mL/min/1 to non-numeric Rai's .73 results) Medical, ) BUN/Creatinine 13 Normal (applies [facility] (S t Ratio to non-numeric Rai's results) Medical, ) Sodium 139 Normal (applies [facility] (St [Moles/volume] in mmol/L to non-numeric Rai's Serum or Plasma results) Medical, ) Chloride 97 Normal (applies [facility] (St [Moles/volume] in mmol/L to non-numeric Rai's Serum or Plasma results) Medical, ) Potassium 4.5 Normal (applies [facility] (St [Mass/volume] in mmol/L to non-numeric Rai's Blood results) Medical, ) Carbon dioxide, 29 Normal (applies [facility] ( St total mmol/L to non-numeric Rai's [Moles/volume] in results) Medical, Serum or Plasma PC) Calcium 10.4 Above high [facility] (St [Moles/volume] in mg/dL normal Rai's Urine collected for Medical, unspecified PC) duration Globulin, Total 3.4 g/dL Normal (applies [facility] ( St to non-numeric Rai's results) Medical, ) Microalbumin 4.8 g/dL Normal (applies [facility] (St [Mass/time] in to non-numeric Rai's Urine collected for results) Medical, unspecified PC) duration Protein 8.2 g/dL Normal (applies [facility] (St [Mass/volume] in to non-numeric Rai's Serum or Plasma results) Medical, ) Bilirubin.total <0.2 Normal (applies [facility] ( St [Mass/volume] in to non-numeric Rai's Serum or Plasma results) Medical, ) A/G Ratio 1.4 Normal (applies [facility] (St to non-numeric Rai's results) Medical, ) Alkaline 92 IU/L Normal (applies [facility] (St phosphatase to non-numeric Rai's [Enzymatic results) Medical, activity/volume] in PC) Serum, Plasma or Blood Aspartate 19 IU/L Normal (applies [facility] (St aminotransferase to non-numeric Rai's [Enzymatic results) Medical, activity/volume] in PC) Serum or Plasma Alanine 27 IU/L Normal (applies [facility] (St aminotransferase to non-numeric Rai's [Enzymatic results) Medical, activity/volume] in PC) Serum or Plasma ID Date Data Source [id number] 09/06/2019 12:00:00 AM EDT [facility] ([facility] ) Name Value Range Interpretation Description Data Sup porting Code Source(s) Document(s ) Leukocytes 8.2 Normal (applies [facility] (St [#/volume] in x10E3/uL to non-numeric Rai's Blood by results) Medical, ) Automated count Erythrocytes 4.91 Normal (applies [facility] (St [#/volume] in x10E6/uL to non-numeric Rai's Blood by results) Medical, ) Automated count Hemoglobin 14.5 Normal (applies [facility] (St [Mass/volume] in g/dL to non-numeric Rai's Blood results) Medical, ) MCH 29.5 pg Normal (applies [facility] (St to non-numeric Rai's results) Medical, ) Hematocrit 42.9 % Normal (applies [facility] (St [Volume to non-numeric Rai's Fraction] of results) [facility], ) Blood by Automated count MCV 87 fL Normal (applies [facility] (St to non-numeric Rai's results) [facility], ) RDW 13.3 % Normal (applies [facility] (St to non-numeric Rai's results) [facility], ) MCHC 33.8 Normal (applies [facility] (St g/dL to non-numeric Rai's results) [facility], ) Neutrophils [#] 53 % Normal (applies [facility] ( St in Body fluid by to non-numeric Rai's Manual count results) [facility], ) Platelets 330 Normal (applies [facility] (St [#/area] in x10E3/uL to non-numeric Rai's Blood by results) [facility], ) Microscopy high power field Monocytes 10 % Normal (applies [facility] (St [#/volume] in to non-numeric Rai's Cord blood results) [facility], ) Lymphs 34 % Normal (applies [facility] (St to non-numeric Rai's results) Medical, ) Eos 2 % Normal (applies [facility] (St to non-numeric Rai's results) [facility], ) Neutrophils 4.4 Normal (applies [facility] (St (Absolute) x10E3/uL to non-numeric Rai's results) Medical, ) Basos 1 % Normal (applies [facility] (St to non-numeric Rai's results) Medical, ) Lymphs 2.8 Normal (applies [facility] (St (Absolute) x10E3/uL to non-numeric Rai's results) [facility], ) Monocytes(Absolu 0.8 Normal (applies [facility] (St te) x10E3/uL to non-numeric Rai's results) Medical, ) Baso (Absolute) 0.1 Normal (applies [facility] ( St x10E3/uL to non-numeric Rai's results) Medical, ) Eos (Absolute) 0.1 Normal (applies [facility] (S t x10E3/uL to non-numeric Rai's results) Medical, ) Immature 0 % Normal (applies [facility] (St Granulocytes to non-numeric Rai's results) [facility], ) Immature Grans 0.0 Normal (applies [facility] (S t (Abs) x10E3/uL to non-numeric Rai's results) [facility] [place]) ID Date Data Source [id number] 09/06/2019 12:00:00 AM EDT [facility] ([facility]) Name Value Range Interpretation Code Description Data Linda rce(s) Supporting Document(s ) SARS-CoV- Positive Abnormal (applies [facility] (St 2 to non-numeric Rai's Antibody, results) [facility] [place]) IgG ID Date Data Source [id number] 09/06/2019 12:00:00 AM EDT [facility] ([facility]) Name Value Range Interpretation Code Description Data Linda rce(s) Supporting Document(s ) SARS-CoV- Negative Normal (applies to [facility] (St 2 non-numeric Rai's Antibody, results) [facility] [place]) IgM ID Date Data Source [id number] 09/06/2019 12:00:00 AM EDT [facility] ([facility]) Name Value Range Interpretation Description Data Sup porting Code Source(s) Document(s ) Prothrombin 10.6 sec Normal (applies [facility] (St Time to non-numeric Rai's results) [facility] [place]) INR 1.0 Normal (applies [facility] (St to non-numeric Rai's results) [facility] [place]) aPTT 34 sec Above high normal [facility] ([facility]) ID Date Data Source [id number] 09/06/2019 12:00:00 AM EDT [facility] ([facility]) Name Value Range Interpretation Description Data Sup porting Code Source(s) Document(s ) Cholesterol 132 Normal (applies [facility] (St [Mass/volume] in mg/dL to non-numeric Rai's Serum or Plasma results) [facility] [place]) Triglyceride 282 Above high normal [facility] (S t [Mass/volume] in mg/dL Rai's Serum or Plasma [facility] [place]) HDL Cholesterol 35 mg/dL Below low normal [facility] ([facility]) VLDL Cholesterol 56 mg/dL Above high normal [facility] N ([facility]) LDL Cholesterol 41 mg/dL Normal (applies [facility] ( St Calc to non-numeric Rai's results) Medical, PC) ID Date Data Source [id number] 09/06/2019 12:00:00 AM EDT [facility] ([facility]) Name Value Range Interpretation Description Data Sup porting Code Source(s) Document(s ) Glucose 105 Above high [facility] (St [Mass/volume] in mg/dL normal Rai's Urine collected for Medical, unspecified PC) duration Creatinine 0.70 Below low normal [facility] (St [Interpretation] in mg/dL [facility] Urine [facility], PC) Urea nitrogen 9 mg/dL Normal (applies [facility] (St [Mass/volume] in to non-numeric Rai's Serum or Plasma results) Medical, PC) eGFR If Africn Am 141 Normal (applies [facility] (St mL/min/1 to non-numeric Rai's .73 results) Medical, PC) eGFR If NonAfricn 122 Normal (applies [facility] (St Am mL/min/1 to non-numeric Rai's .73 results) Medical, PC) BUN/Creatinine 13 Normal (applies [facility] (S t Ratio to non-numeric Rai's results) Medical, PC) Sodium 139 Normal (applies [facility] (St [Moles/volume] in mmol/L to non-numeric Rai's Serum or Plasma results) Medical, PC) Chloride 97 Normal (applies [facility] (St [Moles/volume] in mmol/L to non-numeric Rai's Serum or Plasma results) Medical, PC) Potassium 4.5 Normal (applies [facility] (St [Mass/volume] in mmol/L to non-numeric Rai's Blood results) Medical, PC) Calcium 10.4 Above high [facility] (St [Moles/volume] in mg/dL normal Rai's Urine collected for Medical, unspecified PC) duration Carbon dioxide, 29 Normal (applies [facility] ( St total mmol/L to non-numeric Rai's [Moles/volume] in results) Medical, Serum or Plasma PC) Microalbumin 4.8 g/dL Normal (applies [facility] (St [Mass/time] in to non-numeric Rai's Urine collected for results) Medical, unspecified PC) duration Globulin, Total 3.4 g/dL Normal (applies [facility] ( St to non-numeric Rai's results) Medical, PC) Protein 8.2 g/dL Normal (applies [facility] (St [Mass/volume] in to non-numeric Rai's Serum or Plasma results) Medical, ) A/G Ratio 1.4 Normal (applies [facility] (St to non-numeric Rai's results) Medical, ) Bilirubin.total <0.2 Normal (applies [facility] ( St [Mass/volume] in to non-numeric Rai's Serum or Plasma results) Medical, ) Aspartate 19 IU/L Normal (applies [facility] (St aminotransferase to non-numeric Rai's [Enzymatic results) Medical, activity/volume] in ) Serum or Plasma Alkaline 92 IU/L Normal (applies [facility] (St phosphatase to non-numeric Rai's [Enzymatic results) Medical, activity/volume] in ) Serum, Plasma or Blood Alanine 27 IU/L Normal (applies [facility] (St aminotransferase to non-numeric Rai's [Enzymatic results) Medical, activity/volume] in ) Serum or Plasma ID Date Data Source [id number] 09/06/2019 12:00:00 AM EDT [facility] ([facility] ) Name Value Range Interpretation Description Data Sup porting Code Source(s) Document(s ) Leukocytes 8.2 Normal (applies [facility] (St [#/volume] in x10E3/uL to non-numeric Rai's Blood by results) Medical, ) Automated count Hemoglobin 14.5 Normal (applies [facility] (St [Mass/volume] in g/dL to non-numeric Ari's Blood results) [facility], ) Erythrocytes 4.91 Normal (applies [facility] (St [#/volume] in x10E6/uL to non-numeric Rai's Blood by results) Medical, ) Automated count MCV 87 fL Normal (applies [facility] (St to non-numeric Rai's results) Medical, ) Hematocrit 42.9 % Normal (applies [facility] (St [Volume to non-numeric Rai's Fraction] of results) [facility], ) Blood by Automated count MCHC 33.8 Normal (applies MEDGEN (St g/dL to non-numeric Rai's results) Medical, ) MCH 29.5 pg Normal (applies [facility] (St to non-numeric Rai's results) Medical, ) RDW 13.3 % Normal (applies [facility] (St to non-numeric Rai's results) [facility], ) Platelets 330 Normal (applies [facility] (St [#/area] in x10E3/uL to non-numeric Rai's Blood by results) Medical, ) Microscopy high power field Monocytes 10 % Normal (applies [facility] (St [#/volume] in to non-numeric Rai's Cord blood results) Medical, ) Lymphs 34 % Normal (applies [facility] (St to non-numeric Rai's results) Medical, ) Neutrophils [#] 53 % Normal (applies [facility] ( St in Body fluid by to non-numeric Rai's Manual count results) Medical, ) Basos 1 % Normal (applies [facility] (St to non-numeric Rai's results) Medical, ) Eos 2 % Normal (applies [facility] (St to non-numeric Rai's results) Medical, ) Neutrophils 4.4 Normal (applies [facility] (St (Absolute) x10E3/uL to non-numeric Rai's results) [facility], ) Lymphs 2.8 Normal (applies [facility] (St (Absolute) x10E3/uL to non-numeric Rai's results) Medical, ) Monocytes(Absolu 0.8 Normal (applies MEDGEN (St te) x10E3/uL to non-numeric Rai's results) Medical, ) Eos (Absolute) 0.1 Normal (applies [facility] (S t x10E3/uL to non-numeric Rai's results) Medical, ) Baso (Absolute) 0.1 Normal (applies [facility] ( St x10E3/uL to non-numeric Rai's results) Medical, ) Immature 0 % Normal (applies [facility] (St Granulocytes to non-numeric Rai's results) Medical, ) Immature Grans 0.0 Normal (applies [facility] (S t (Abs) x10E3/uL to non-numeric Rai's results) Medical, ) ID Date Data Source [id number] 06/28/2019 12:00:00 AM EDT [facility] Name Value Range Interpretation Code Description Data Linda rce(s) Supporting Document(s ) 2019-nCoV [facility] RNA XXX NANI+probe- Imp This lab was ordered by [facility] and reported by [employer] ID Date Data Source [id number] 12/01/2018 12:00:00 AM EDT [facility], ) Name Value Range Interpretation Description Data Sup porting Code Source(s) Document(s ) No Lavender Test not Normal (applies to [facility] (S t Received performed non-numeric Rai's . results) Medical, PC) ID Date Data Source [id number] 12/01/2018 12:00:00 AM EDT [facility] ([facility] [place], ) Name Value Range Interpretation Code Description Data Linda rce(s) Supporting Document(s ) Lipase 25 U/L Normal (applies to [facility] (St non-numeric results) [facility] Me dical, ) ID Date Data Source [id number] 12/01/2018 12:00:00 AM EDT [facility] ([employer] [facility], ) Name Value Range Interpretation Description Data Sup porting Code Source(s) Document(s ) Hemoglobin Test not Normal (applies to [facility] (St A1c/Hemoglobin performed non-numeric Rai's .total in . results) Medical, ) Blood ID Date Data Source [id number] 12/01/2018 12:00:00 AM EDT [facility] ([facility] [place], ) Name Value Range Interpretation Description Data Sup porting Code Source(s) Document(s ) Protein 7.6 g/dL Normal (applies [facility] (St [Mass/volume] in to non-numeric Rai's Serum or Plasma results) Medical, PC) Microalbumin 4.4 g/dL Normal (applies [facility] (St [Mass/time] in to non-numeric Rai's Urine collected for results) Medical, unspecified PC) duration Bilirubin.total 0.4 Normal (applies [facility] ( St [Mass/volume] in mg/dL to non-numeric Rai's Serum or Plasma results) Medical, PC) Aspartate 32 IU/L Normal (applies [facility] (St aminotransferase to non-numeric Rai's [Enzymatic results) Medical, activity/volume] in PC) Serum or Plasma Alkaline 105 IU/L Normal (applies [facility] (St phosphatase to non-numeric Rai's [Enzymatic results) Medical, activity/volume] in PC) Serum, Plasma or Blood Bilirubin.conjugate 0.13 Normal (applies MEDG EN (St d [Mass/volume] in mg/dL to non-numeric Rai's Serum or Plasma results) Medical, PC) Alanine 42 IU/L Normal (applies [facility] (St aminotransferase to non-numeric Rai's [Enzymatic results) Medical, activity/volume] in ) Serum or Plasma ID Date Data Source [id number] 12/01/2018 12:00:00 AM EDT [facility] ([facility] [place] Name Value Range Interpretation Description Data Sup porting Code Source(s) Document(s ) Cholesterol 132 Normal (applies [facility] (St [Mass/volume] in mg/dL to non-numeric Rai's Serum or Plasma results) [facility], ) Triglyceride 286 Above high normal [facility] (S t [Mass/volume] in mg/dL Rai's Serum or Plasma [facility] [place]) VLDL Cholesterol 57 mg/dL Above high normal [facility] N ([facility]) HDL Cholesterol 35 mg/dL Below low normal [facility] ([facility]) LDL Cholesterol 40 mg/dL Normal (applies [facility] ( St Calc to non-numeric Rai's results) [facility]) ID Date Data Source [id number] 12/01/2018 12:00:00 AM EDT [facility] ([facility] [place]) Name Value Range Interpretation Description Data Sup porting Code Source(s) Document(s ) Glucose 102 mg/dL Above high normal [facility] (St [Mass/volume] Rai's in Urine [facility], ) collected for unspecified duration Creatinine 0.56 Below low normal [facility] (St [Interpretation mg/dL Rai's ] in Urine [facility], ) eGFR If 135 Normal (applies [facility] (St NonAfricn Am mL/min/1. to non-numeric Rai's 73 results) [facility], ) Urea nitrogen 5 mg/dL Below low normal [facility] (S t [Mass/volume] Ria's in Serum or [facility], ) Plasma eGFR If Africn 156 Normal (applies [facility] (S t Am mL/min/1. to non-numeric Rai's 73 results) [facility], ) BUN/Creatinine 9 Normal (applies [facility] (S t Ratio to non-numeric Rai's results) [facility], ) Sodium 138 Normal (applies [facility] (St [Moles/volume] mmol/L to non-numeric Rai's in Serum or results) [facility], ) Plasma Potassium 4.6 Normal (applies [facility] (St [Mass/volume] mmol/L to non-numeric Rai's in Blood results) [facility], ) Chloride 99 mmol/L Normal (applies [facility] (St [Moles/volume] to non-numeric Rai's in Serum or results) Medical, ) Plasma Calcium 9.9 mg/dL Normal (applies [facility] (St [Moles/volume] to non-numeric Rai's in Urine results) [facility], ) collected for unspecified duration Carbon dioxide, 27 mmol/L Normal (applies [facility] ( St total to non-numeric Rai's [Moles/volume] results) [facility], ) in Serum or Plasma ID Date Data Source [id number] 12/01/2018 12:00:00 AM [facility] [facility], ) Name Value Range Interpretation Description Data Sup porting Code Source(s) Document(s ) No Lavender Test not Normal (applies to [facility] (S t Received performed non-numeric Rai's . results) [facility], ) ID Date Data Source [id number] 12/01/2018 12:00:00 AM EDT [facility] [place]) Name Value Range Interpretation Code Description Data Linda rce(s) Supporting Document(s ) Lipase 25 U/L Normal (applies to [facility] (St non-numeric results) Rai's [facility], ) ID Date Data Source [id number] 12/01/2018 12:00:00 AM EDT [facility] [place], ) Name Value Range Interpretation Description Data Sup porting Code Source(s) Document(s ) Hemoglobin Test not Normal (applies to [facility] (St A1c/Hemoglobin performed non-numeric Rai's .total in . results) [facility], ) Blood ID Date Data Source [id number] 12/01/2018 12:00:00 AM [facility] [place] Name Value Range Interpretation Description Data Sup porting Code Source(s) Document(s ) Protein 7.6 g/dL Normal (applies [facility] (St [Mass/volume] in to non-numeric Rai's Serum or Plasma results) [facility], ) Bilirubin.total 0.4 Normal (applies [facility] ( St [Mass/volume] in mg/dL to non-numeric Rai's Serum or Plasma results) [facility], ) Microalbumin 4.4 g/dL Normal (applies [facility] (St [Mass/time] in to non-numeric Rai's Urine collected for results) Medical, unspecified ) duration Bilirubin.conjugate 0.13 Normal (applies MEDG EN (St d [Mass/volume] in mg/dL to non-numeric Rai's Serum or Plasma results) [facility], ) Alkaline 105 IU/L Normal (applies [facility] (St phosphatase to non-numeric Rai's [Enzymatic results) Medical, activity/volume] in ) Serum, Plasma or Blood Alanine 42 IU/L Normal (applies [facility] (St aminotransferase to non-numeric Rai's [Enzymatic results) Medical, activity/volume] in ) Serum or Plasma Aspartate 32 IU/L Normal (applies [facility] (St aminotransferase to non-numeric Rai's [Enzymatic results) Medical, activity/volume] in ) Serum or Plasma ID Date Data Source [id number] 12/01/2018 12:00:00 AM EDT [facility] ([facility] [place]) Name Value Range Interpretation Description Data Sup porting Code Source(s) Document(s ) Cholesterol 132 Normal (applies [facility] (St [Mass/volume] in mg/dL to non-numeric Rai's Serum or Plasma results) [facility], ) Triglyceride 286 Above high normal [facility] (S t [Mass/volume] in mg/dL Rai's Serum or Plasma [facility], ) HDL Cholesterol 35 mg/dL Below low normal [facility] ([facility]) VLDL Cholesterol 57 mg/dL Above high normal [facility] N ([facility]) LDL Cholesterol 40 mg/dL Normal (applies [facility] ( St Calc to non-numeric Rai's results) [facility], ) ID Date Data Source [id number] 12/01/2018 12:00:00 AM EDT [facility] ([facility] [place]) Name Value Range Interpretation Description Data Sup porting Code Source(s) Document(s ) Glucose 102 mg/dL Above high normal [facility] (St [Mass/volume] Rai's in Urine [facility], ) collected for unspecified duration Creatinine 0.56 Below low normal [facility] (St [Interpretation mg/dL Rai's ] in Urine [facility], ) Urea nitrogen 5 mg/dL Below low normal [facility] (S t [Mass/volume] Rai's in Serum or [facility], ) Plasma eGFR If Africn 156 Normal (applies [facility] (S t Am mL/min/1. to non-numeric Rai's 73 results) Medical, ) eGFR If 135 Normal (applies [facility] (St NonAfricn Am mL/min/1. to non-numeric Rai's 73 results) Medical, ) Sodium 138 Normal (applies [facility] (St [Moles/volume] mmol/L to non-numeric Rai's in Serum or results) Medical, ) Plasma BUN/Creatinine 9 Normal (applies [facility] (S t Ratio to non-numeric Rai's results) Medical, ) Potassium 4.6 Normal (applies [facility] (St [Mass/volume] mmol/L to non-numeric Rai's in Blood results) Medical, ) Chloride 99 mmol/L Normal (applies [facility] (St [Moles/volume] to non-numeric Rai's in Serum or results) Medical, ) Plasma Carbon dioxide, 27 mmol/L Normal (applies [facility] ( St total to non-numeric Rai's [Moles/volume] results) Medical, ) in Serum or Plasma Calcium 9.9 mg/dL Normal (applies [facility] (St [Moles/volume] to non-numeric Rai's in Urine results) Medical, ) collected for unspecified duration ID Date Data Source [id number] 12/01/2018 12:00:00 AM [facility], ) Name Value Range Interpretation Description Data Sup porting Code Source(s) Document(s ) No Lavender Test not Normal (applies to [facility] (S t Received performed non-numeric Rai's . results) [facility], ) ID Date Data Source [id number] 12/01/2018 12:00:00 AM EDT [facility]) Name Value Range Interpretation Code Description Data Linda rce(s) Supporting Document(s ) Lipase 25 U/L Normal (applies to [facility] (St non-numeric results) [facility] ID Date Data Source [id number] 12/01/2018 12:00:00 AM EDT [facility] ([facility]) Name Value Range Interpretation Description Data Sup porting Code Source(s) Document(s ) Hemoglobin Test not Normal (applies to [facility] (St A1c/Hemoglobin performed non-numeric Rai's .total in . results) Medical, ) Blood ID Date Data Source [id number] 12/01/2018 12:00:00 AM EDT [facility] ([facility], ) Name Value Range Interpretation Description Data Sup porting Code Source(s) Document(s ) Protein 7.6 g/dL Normal (applies [facility] (St [Mass/volume] in to non-numeric Rai's Serum or Plasma results) Medical, ) Microalbumin 4.4 g/dL Normal (applies [facility] (St [Mass/time] in to non-numeric Rai's Urine collected for results) Medical, unspecified PC) duration Bilirubin.total 0.4 Normal (applies [facility] ( St [Mass/volume] in mg/dL to non-numeric Rai's Serum or Plasma results) Medical, ) Alkaline 105 IU/L Normal (applies [facility] (St phosphatase to non-numeric Rai's [Enzymatic results) Medical, activity/volume] in ) Serum, Plasma or Blood Bilirubin.conjugate 0.13 Normal (applies MEDG EN (St d [Mass/volume] in mg/dL to non-numeric Rai's Serum or Plasma results) Medical, ) Aspartate 32 IU/L Normal (applies [facility] (St aminotransferase to non-numeric Rai's [Enzymatic results) Medical, activity/volume] in ) Serum or Plasma Alanine 42 IU/L Normal (applies [facility] (St aminotransferase to non-numeric Rai's [Enzymatic results) Medical, activity/volume] in ) Serum or Plasma ID Date Data Source [id number] 12/01/2018 12:00:00 AM EDT [facility] ( [facility], ) Name Value Range Interpretation Description Data Sup porting Code Source(s) Document(s ) Cholesterol 132 Normal (applies [facility] (St [Mass/volume] in mg/dL to non-numeric Rai's Serum or Plasma results) [facility], ) Triglyceride 286 Above high normal [facility] (S t [Mass/volume] in mg/dL Rai's Serum or Plasma [facility], ) HDL Cholesterol 35 mg/dL Below low normal [facility] ([facility], ) VLDL Cholesterol 57 mg/dL Above high normal [facility] N ([facility], ) LDL Cholesterol 40 mg/dL Normal (applies [facility] ( St Calc to non-numeric Rai's results) [facility], ) ID Date Data Source [id number] 12/01/2018 12:00:00 AM EDT [facility], ) Name Value Range Interpretation Description Data Sup porting Code Source(s) Document(s ) Glucose 102 mg/dL Above high normal [facility] (St [Mass/volume] Rai's in Urine [facility], ) collected for unspecified duration Urea nitrogen 5 mg/dL Below low normal [facility] (S t [Mass/volume] Rai's in Serum or Medical, ) Plasma Creatinine 0.56 Below low normal [facility] (St [Interpretation mg/dL Rai's ] in Urine [facility], ) eGFR If Africn 156 Normal (applies [facility] (S t Am mL/min/1. to non-numeric Rai's 73 results) Medical, ) eGFR If 135 Normal (applies [facility] (St NonAfricn Am mL/min/1. to non-numeric Ari's 73 results) Medical, ) Sodium 138 Normal (applies [facility] (St [Moles/volume] mmol/L to non-numeric Rai's in Serum or results) Medical, ) Plasma BUN/Creatinine 9 Normal (applies [facility] (S t Ratio to non-numeric Rai's results) [facility], ) Potassium 4.6 Normal (applies [facility] (St [Mass/volume] mmol/L to non-numeric Rai's in Blood results) [facility], ) Chloride 99 mmol/L Normal (applies [facility] (St [Moles/volume] to non-numeric Rai's in Serum or results) Medical, ) Plasma Calcium 9.9 mg/dL Normal (applies [facility] (St [Moles/volume] to non-numeric Rai's in Urine results) [facility], ) collected for unspecified duration Carbon dioxide, 27 mmol/L Normal (applies [facility] ( St total to non-numeric Rai's [Moles/volume] results) [facility], ) in Serum or Plasma ID Date Data Source [id number] 12/01/2018 12:00:00 AM EDT [facility], ) Name Value Range Interpretation Description Data Sup porting Code Source(s) Document(s ) No Lavender Test not Normal (applies to [facility] (S t Received performed non-numeric Rai's . results) Medical, ) ID Date Data Source [id number] 12/01/2018 12:00:00 AM EDT [facility] ([facility], ) Name Value Range Interpretation Code Description Data Linda rce(s) Supporting Document(s ) Lipase 25 U/L Normal (applies to [facility] (St non-numeric results) [facility] Me dical, ) ID Date Data Source [id number] 12/01/2018 12:00:00 AM EDT [facility] ([facility], ) Name Value Range Interpretation Description Data Sup porting Code Source(s) Document(s ) Hemoglobin Test not Normal (applies to [facility] (St A1c/Hemoglobin performed non-numeric Rai's .total in . results) Medical, ) Blood ID Date Data Source [id number] 12/01/2018 12:00:00 AM EDT [facility] ([facility], ) Name Value Range Interpretation Description Data Sup porting Code Source(s) Document(s ) Protein 7.6 g/dL Normal (applies [facility] (St [Mass/volume] in to non-numeric Rai's Serum or Plasma results) Medical, ) Microalbumin 4.4 g/dL Normal (applies [facility] (St [Mass/time] in to non-numeric Rai's Urine collected for results) [facility], unspecified PC) duration Bilirubin.conjugate 0.13 Normal (applies MEDG EN (St d [Mass/volume] in mg/dL to non-numeric Rai's Serum or Plasma results) Medical, ) Bilirubin.total 0.4 Normal (applies [facility] ( St [Mass/volume] in mg/dL to non-numeric Rai's Serum or Plasma results) Medical, ) Alkaline 105 IU/L Normal (applies [facility] (St phosphatase to non-numeric Rai's [Enzymatic results) Medical, activity/volume] in PC) Serum, Plasma or Blood Aspartate 32 IU/L Normal (applies [facility] (St aminotransferase to non-numeric Rai's [Enzymatic results) Medical, activity/volume] in PC) Serum or Plasma Alanine 42 IU/L Normal (applies [facility] (St aminotransferase to non-numeric Rai's [Enzymatic results) Medical, activity/volume] in PC) Serum or Plasma ID Date Data Source [id number] 12/01/2018 12:00:00 AM EDT [facility] ([facility], ) Name Value Range Interpretation Description Data Sup porting Code Source(s) Document(s ) Triglyceride 286 Above high normal [facility] (S t [Mass/volume] in mg/dL Rai's Serum or Plasma [facility], ) Cholesterol 132 Normal (applies [facility] (St [Mass/volume] in mg/dL to non-numeric Rai's Serum or Plasma results) [facility]) HDL Cholesterol 35 mg/dL Below low normal [facility] ([facility], ) VLDL Cholesterol 57 mg/dL Above high normal [facility] N ([facility], ) LDL Cholesterol 40 mg/dL Normal (applies [facility] ( St Calc to non-numeric Rai's results) [facility]) ID Date Data Source [id number] 12/01/2018 12:00:00 AM EDT [facility] ([facility] [place]) Name Value Range Interpretation Description Data Sup porting Code Source(s) Document(s ) Glucose 102 mg/dL Above high normal [facility] (St [Mass/volume] Rai's in Urine [facility], ) collected for unspecified duration Urea nitrogen 5 mg/dL Below low normal [facility] (S t [Mass/volume] Rai's in Serum or [facility], ) Plasma eGFR If 135 Normal (applies [facility]GEN (St NonAfricn Am mL/min/1. to non-numeric Rai's 73 results) [facility]) Creatinine 0.56 Below low normal [facility] (St [Interpretation mg/dL Rai's ] in Urine [facility], ) eGFR If Africn 156 Normal (applies [facility]GEN (S t Am mL/min/1. to non-numeric Rai's 73 results) [facility], ) BUN/Creatinine 9 Normal (applies [facility] (S t Ratio to non-numeric Rai's results) [facility], ) Sodium 138 Normal (applies [facility] (St [Moles/volume] mmol/L to non-numeric Rai's in Serum or results) [facility], ) Plasma Potassium 4.6 Normal (applies [facility] (St [Mass/volume] mmol/L to non-numeric Rai's in Blood results) [facility]) Chloride 99 mmol/L Normal (applies [facility] (St [Moles/volume] to non-numeric Rai's in Serum or results) [facility], ) Plasma Carbon dioxide, 27 mmol/L Normal (applies [facility] ( St total to non-numeric Rai's [Moles/volume] results) Medical, ) in Serum or Plasma Calcium 9.9 mg/dL Normal (applies [facility] (St [Moles/volume] to non-numeric Rai's in Urine results) Medical, ) collected for unspecified duration ID Date Data Source [id number] 12/01/2018 12:00:00 AM EDT [facility] ([facility], ) Name Value Range Interpretation Description Data Sup porting Code Source(s) Document(s ) No Lavender Test not Normal (applies to [facility]GEN (S t Received performed non-numeric Rai's . results) Medical, ) ID Date Data Source [id number] 12/01/2018 12:00:00 AM EDT [facility] ([facility], ) Name Value Range Interpretation Code Description Data Linda rce(s) Supporting Document(s ) Lipase 25 U/L Normal (applies to [facility] (St non-numeric results) Rai's [facility], ) ID Date Data Source [id number] 12/01/2018 12:00:00 AM EDT [facility] ([facility], ) Name Value Range Interpretation Description Data Sup porting Code Source(s) Document(s ) Hemoglobin Test not Normal (applies to [facility] (St A1c/Hemoglobin performed non-numeric Rai's .total in . results) Medical, ) Blood ID Date Data Source [id number] 12/01/2018 12:00:00 AM EDT [facility] ([facility], ) Name Value Range Interpretation Description Data Sup porting Code Source(s) Document(s ) Protein 7.6 g/dL Normal (applies [facility] (St [Mass/volume] in to non-numeric Rai's Serum or Plasma results) Medical, ) Microalbumin 4.4 g/dL Normal (applies [facility] (St [Mass/time] in to non-numeric Rai's Urine collected for results) Medical, unspecified ) duration Bilirubin.conjugate 0.13 Normal (applies MEDG EN (St d [Mass/volume] in mg/dL to non-numeric Rai's Serum or Plasma results) Medical, ) Bilirubin.total 0.4 Normal (applies [facility] ( St [Mass/volume] in mg/dL to non-numeric Rai's Serum or Plasma results) Medical, ) Aspartate 32 IU/L Normal (applies [facility]GEN (St aminotransferase to non-numeric Rai's [Enzymatic results) Medical, activity/volume] in ) Serum or Plasma Alanine 42 IU/L Normal (applies [facility]GEN (St aminotransferase to non-numeric Rai's [Enzymatic results) Medical, activity/volume] in ) Serum or Plasma Alkaline 105 IU/L Normal (applies [facility] (St phosphatase to non-numeric Rai's [Enzymatic results) Medical, activity/volume] in ) Serum, Plasma or Blood ID Date Data Source [id number] 12/01/2018 12:00:00 AM EDT [facility] ([facility] [place]) Name Value Range Interpretation Description Data Sup porting Code Source(s) Document(s ) Cholesterol 132 Normal (applies [facility] (St [Mass/volume] in mg/dL to non-numeric Rai's Serum or Plasma results) [facility]) Triglyceride 286 Above high normal [facility]GEN (S t [Mass/volume] in mg/dL Rai's Serum or Plasma [facility] [place]) HDL Cholesterol 35 mg/dL Below low normal [facility] ([facility]) VLDL Cholesterol 57 mg/dL Above high normal [facility] N ([facility]) LDL Cholesterol 40 mg/dL Normal (applies [facility] ( St Calc to non-numeric Rai's results) [facility]) ID Date Data Source [id number] 12/01/2018 12:00:00 AM EDT [facility] ([facility] [place], ) Name Value Range Interpretation Description Data Sup porting Code Source(s) Document(s ) Glucose 102 mg/dL Above high normal [facility] (St [Mass/volume] Rai's in Urine [facility] [place]) collected for unspecified duration Urea nitrogen 5 mg/dL Below low normal MEDGEN (S t [Mass/volume] Rai's in Serum or [facility], ) Plasma eGFR If 135 Normal (applies MEDGEN (St NonAfricn Am mL/min/1. to non-numeric Rai's 73 results) [facility] [place]) Creatinine 0.56 Below low normal MEDGEN (St [Interpretation mg/dL Rai's ] in Urine [facility] [place]) BUN/Creatinine 9 Normal (applies MEDGEN (S t Ratio to non-numeric Rai's results) [facility] [place]) eGFR If Africn 156 Normal (applies MEDGEN (S t Am mL/min/1. to non-numeric Rai's 73 results) Medical, ) Sodium 138 Normal (applies MEDGEN (St [Moles/volume] mmol/L to non-numeric Rai's in Serum or results) Medical, ) Plasma Chloride 99 mmol/L Normal (applies MEDGEN (St [Moles/volume] to non-numeric Rai's in Serum or results) Medical, ) Plasma Potassium 4.6 Normal (applies MEDGEN (St [Mass/volume] mmol/L to non-numeric Rai's in Blood results) [facility], ) Carbon dioxide, 27 mmol/L Normal (applies MEDGEN ( St total to non-numeric Rai's [Moles/volume] results) [facility], ) in Serum or Plasma Calcium 9.9 mg/dL Normal (applies MEDGEN (St [Moles/volume] to non-numeric Rai's in Urine results) Medical, ) collected for unspecified duration ID Date Data Source [id number] 12/01/2018 12:00:00 AM EDT MED[facility] ([facility], ) Name Value Range Interpretation Description Data Sup porting Code Source(s) Document(s ) No Lavender Test not Normal (applies to MEDGEN (S t Received performed non-numeric Rai's . results) [facility], ) ID Date Data Source [id number] 12/01/2018 12:00:00 AM EDT MEDGEN ([employer] [facility] [place]) Name Value Range Interpretation Code Description Data Linda rce(s) Supporting Document(s ) Lipase 25 U/L Normal (applies to MEDGEN (St non-numeric results) Rai's Me [facility]) ID Date Data Source [id number] 12/01/2018 12:00:00 AM EDT MEDGEN ([facility], ) Name Value Range Interpretation Description Data Sup porting Code Source(s) Document(s ) Hemoglobin Test not Normal (applies to MEDGEN (St A1c/Hemoglobin performed non-numeric Rai's .total in . results) [facility], ) Blood ID Date Data Source [id number] 12/01/2018 12:00:00 AM EDT [facility] ([facility] [place]) Name Value Range Interpretation Description Data Sup porting Code Source(s) Document(s ) Protein 7.6 g/dL Normal (applies MEDGEN (St [Mass/volume] in to non-numeric Rai's Serum or Plasma results) [facility], ) Microalbumin 4.4 g/dL Normal (applies MEDGEN (St [Mass/time] in to non-numeric Rai's Urine collected for results) [facility], unspecified ) duration Alkaline 105 IU/L Normal (applies MEDGEN (St phosphatase to non-numeric Rai's [Enzymatic results) Medical, activity/volume] in ) Serum, Plasma or Blood Bilirubin.conjugate 0.13 Normal (applies MEDG EN (St d [Mass/volume] in mg/dL to non-numeric Rai's Serum or Plasma results) [facility], ) Bilirubin.total 0.4 Normal (applies MEDGEN ( St [Mass/volume] in mg/dL to non-numeric Rai's Serum or Plasma results) [facility], ) Aspartate 32 IU/L Normal (applies MEDGEN (St aminotransferase to non-numeric Rai's [Enzymatic results) Medical, activity/volume] in ) Serum or Plasma Alanine 42 IU/L Normal (applies MEDGEN (St aminotransferase to non-numeric Rai's [Enzymatic results) Medical, activity/volume] in ) Serum or Plasma ID Date Data Source [id number] 12/01/2018 12:00:00 AM EDT [facility] ([facility] [place] Name Value Range Interpretation Description Data Sup porting Code Source(s) Document(s ) Triglyceride 286 Above high normal MEDGEN (S t [Mass/volume] in mg/dL Rai's Serum or Plasma [facility], ) Cholesterol 132 Normal (applies MEDGEN (St [Mass/volume] in mg/dL to non-numeric Rai's Serum or Plasma results) [facility], ) LDL Cholesterol 40 mg/dL Normal (applies MEDGEN ( St Calc to non-numeric Rai's results) [facility], ) HDL Cholesterol 35 mg/dL Below low normal MED[facility] ([facility]) VLDL Cholesterol 57 mg/dL Above high normal MEDGE N ([facility]) ID Date Data Source [id number] 12/01/2018 12:00:00 AM EDT [facility] ([facility] [place]) Name Value Range Interpretation Description Data Sup porting Code Source(s) Document(s ) Glucose 102 mg/dL Above high normal MEDGEN (St [Mass/volume] Rai's in Urine [facility], ) collected for unspecified duration Urea nitrogen 5 mg/dL Below low normal MEDGEN (S t [Mass/volume] Rai's in Serum or [facility], ) Plasma eGFR If Africn 156 Normal (applies MEDGEN (S t Am mL/min/1. to non-numeric Rai's 73 results) [facility] [place]) Creatinine 0.56 Below low normal MEDGEN (St [Interpretation mg/dL Rai's ] in Urine [facility] [place]) eGFR If 135 Normal (applies MEDGEN (St NonAfricn Am mL/min/1. to non-numeric Rai's 73 results) [facility] [place]) Sodium 138 Normal (applies MEDGEN (St [Moles/volume] mmol/L to non-numeric Rai's in Serum or results) [facility] [place]) Plasma BUN/Creatinine 9 Normal (applies MEDGEN (S t Ratio to non-numeric Rai's results) [facility] [place]) Potassium 4.6 Normal (applies MEDGEN (St [Mass/volume] mmol/L to non-numeric Rai's in Blood results) [facility] [place]) Carbon dioxide, 27 mmol/L Normal (applies MEDGEN ( St total to non-numeric Rai's [Moles/volume] results) [facility] [place]) in Serum or Plasma Calcium 9.9 mg/dL Normal (applies MEDGEN (St [Moles/volume] to non-numeric Rai's in Urine results) [facility] [place]) collected for unspecified duration Chloride 99 mmol/L Normal (applies MEDGEN (St [Moles/volume] to non-numeric Rai's in Serum or results) [facility], ) Plasma ID Date Data Source [id number] 12/01/2018 12:00:00 AM EDT [facility] ([facility], ) Name Value Range Interpretation Description Data Sup porting Code Source(s) Document(s ) No Lavender Test not Normal (applies to MEDGEN (S t Received performed non-numeric Rai's . results) [facility] [place]) ID Date Data Source [id number] 12/01/2018 12:00:00 AM EDT [facility] ([facility], ) Name Value Range Interpretation Code Description Data Linda rce(s) Supporting Document(s ) Lipase 25 U/L Normal (applies to MEDGEN (St non-numeric results) Rai's Me dical, ) ID Date Data Source [id number] 12/01/2018 12:00:00 AM EDT MED[facility] ([facility], ) Name Value Range Interpretation Description Data Sup porting Code Source(s) Document(s ) Hemoglobin Test not Normal (applies to MEDGEN (St A1c/Hemoglobin performed non-numeric Rai's .total in . results) Medical, [facility]) Blood ID Date Data Source [id number] 12/01/2018 12:00:00 AM EDT MEDGEN ([facility] [place] [facility], ) Name Value Range Interpretation Description Data Sup porting Code Source(s) Document(s ) Protein 7.6 g/dL Normal (applies MEDGEN (St [Mass/volume] in to non-numeric Rai's Serum or Plasma results) Medical, [facility]) Bilirubin.total 0.4 Normal (applies MEDGEN ( St [Mass/volume] in mg/dL to non-numeric Rai's Serum or Plasma results) Medical, [facility]) Microalbumin 4.4 g/dL Normal (applies MEDGEN (St [Mass/time] in to non-numeric Rai's Urine collected for results) [facility], unspecified PC) duration Alkaline 105 IU/L Normal (applies MEDGEN (St phosphatase to non-numeric Rai's [Enzymatic results) Medical, activity/volume] in PC) Serum, Plasma or Blood Aspartate 32 IU/L Normal (applies MEDGEN (St aminotransferase to non-numeric Rai's [Enzymatic results) Medical, activity/volume] in PC) Serum or Plasma Bilirubin.conjugate 0.13 Normal (applies MEDG EN (St d [Mass/volume] in mg/dL to non-numeric Rai's Serum or Plasma results) Medical, [facility]) Alanine 42 IU/L Normal (applies MEDGEN (St aminotransferase to non-numeric Rai's [Enzymatic results) Medical, activity/volume] in ) Serum or Plasma ID Date Data Source [id number] 12/01/2018 12:00:00 AM EDT MEDGEN ([facility], ) Name Value Range Interpretation Description Data Sup porting Code Source(s) Document(s ) Cholesterol 132 Normal (applies MEDGEN (St [Mass/volume] in mg/dL to non-numeric Rai's Serum or Plasma results) Medical, PC) Triglyceride 286 Above high normal MEDGEN (S t [Mass/volume] in mg/dL Rai's Serum or Plasma [facility], ) HDL Cholesterol 35 mg/dL Below low normal MED[facility] ([facility], ) VLDL Cholesterol 57 mg/dL Above high normal MEDGE N ( [facility] Rai's [facility], ) LDL Cholesterol 40 mg/dL Normal (applies MEDGEN ( St Calc to non-numeric Rai's results) [facility], ) ID Date Data Source [id number] 12/01/2018 12:00:00 AM EDT [facility] ([facility], ) Name Value Range Interpretation Description Data Sup porting Code Source(s) Document(s ) Glucose 102 mg/dL Above high normal MEDGEN (St [Mass/volume] Rai's in Urine [facility], ) collected for unspecified duration Urea nitrogen 5 mg/dL Below low normal MEDGEN (S t [Mass/volume] Rai's in Serum or [facility], ) Plasma Creatinine 0.56 Below low normal MEDGEN (St [Interpretation mg/dL Rai's ] in Urine [facility], ) eGFR If 135 Normal (applies MEDGEN (St NonAfricn Am mL/min/1. to non-numeric Rai's 73 results) Medical, ) eGFR If Africn 156 Normal (applies MEDGEN (S t Am mL/min/1. to non-numeric Rai's 73 results) [facility], ) BUN/Creatinine 9 Normal (applies MEDGEN (S t Ratio to non-numeric Rai's results) [facility], ) Sodium 138 Normal (applies MEDGEN (St [Moles/volume] mmol/L to non-numeric Rai's in Serum or results) Medical, ) Plasma Potassium 4.6 Normal (applies MEDGEN (St [Mass/volume] mmol/L to non-numeric Rai's in Blood results) [facility], ) Chloride 99 mmol/L Normal (applies MEDGEN (St [Moles/volume] to non-numeric Rai's in Serum or results) Medical, ) Plasma Carbon dioxide, 27 mmol/L Normal (applies MEDGEN ( St total to non-numeric Rai's [Moles/volume] results) Medical, ) in Serum or Plasma Calcium 9.9 mg/dL Normal (applies MEDGEN (St [Moles/volume] to non-numeric Rai's in Urine results) [facility], ) collected for unspecified duration ID Date Data Source [id number] 12/01/2018 12:00:00 AM EDT [facility] ([facility], ) Name Value Range Interpretation Description Data Sup porting Code Source(s) Document(s ) No Lavender Test not Normal (applies to MEDGEN (S t Received performed non-numeric Rai's . results) Medical, ) ID Date Data Source [id number] 12/01/2018 12:00:00 AM EDT MED[facility] ([facility], ) Name Value Range Interpretation Code Description Data Linda rce(s) Supporting Document(s ) Lipase 25 U/L Normal (applies to MEDGEN (St non-numeric results) Rai's Me dical, ) ID Date Data Source [id number] 12/01/2018 12:00:00 AM EDT MEDGEN ([facility], ) Name Value Range Interpretation Description Data Sup porting Code Source(s) Document(s ) Hemoglobin Test not Normal (applies to MEDGEN (St A1c/Hemoglobin performed non-numeric Rai's .total in . results) Medical, ) Blood ID Date Data Source [id number] 12/01/2018 12:00:00 AM EDT MEDGEN ([facility], ) Name Value Range Interpretation Description Data Sup porting Code Source(s) Document(s ) Protein 7.6 g/dL Normal (applies MEDGEN (St [Mass/volume] in to non-numeric Rai's Serum or Plasma results) Medical, PC) Bilirubin.conjugate 0.13 Normal (applies MEDG EN (St d [Mass/volume] in mg/dL to non-numeric Rai's Serum or Plasma results) Medical, PC) Bilirubin.total 0.4 Normal (applies MEDGEN ( St [Mass/volume] in mg/dL to non-numeric Rai's Serum or Plasma results) Medical, ) Microalbumin 4.4 g/dL Normal (applies MEDGEN (St [Mass/time] in to non-numeric Rai's Urine collected for results) Medical, unspecified PC) duration Alanine 42 IU/L Normal (applies MEDGEN (St aminotransferase to non-numeric Rai's [Enzymatic results) Medical, activity/volume] in PC) Serum or Plasma Alkaline 105 IU/L Normal (applies MEDGEN (St phosphatase to non-numeric Rai's [Enzymatic results) Medical, activity/volume] in ) Serum, Plasma or Blood Aspartate 32 IU/L Normal (applies MEDGEN (St aminotransferase to non-numeric Rai's [Enzymatic results) Medical, activity/volume] in ) Serum or Plasma ID Date Data Source [id number] 12/01/2018 12:00:00 AM EDT [facility] ( [facility], ) Name Value Range Interpretation Description Data Sup porting Code Source(s) Document(s ) Triglyceride 286 Above high normal MEDGEN (S t [Mass/volume] in mg/dL Rai's Serum or Plasma [facility] [place]) Cholesterol 132 Normal (applies MEDGEN (St [Mass/volume] in mg/dL to non-numeric Rai's Serum or Plasma results) [facility] [place]) HDL Cholesterol 35 mg/dL Below low normal [facility]GEN ([facility] [place]) VLDL Cholesterol 57 mg/dL Above high normal MEDGE N ( [facility] [place]) LDL Cholesterol 40 mg/dL Normal (applies MEDGEN ( St Calc to non-numeric Rai's results) [facility] [place]) ID Date Data Source [id number] 12/01/2018 12:00:00 AM EDT MEDGEN ([facility], ) Name Value Range Interpretation Description Data Sup porting Code Source(s) Document(s ) Urea nitrogen 5 mg/dL Below low normal MEDGEN (S t [Mass/volume] Rai's in Serum or [facility], ) Plasma Glucose 102 mg/dL Above high normal MEDGEN (St [Mass/volume] Rai's in Urine [facility], ) collected for unspecified duration eGFR If 135 Normal (applies MEDGEN (St NonAfricn Am mL/min/1. to non-numeric Rai's 73 results) [facility] [place]) Creatinine 0.56 Below low normal MEDGEN (St [Interpretation mg/dL Rai's ] in Urine [facility] [place]) BUN/Creatinine 9 Normal (applies MEDGEN (S t Ratio to non-numeric Rai's results) [facility] [place]) Sodium 138 Normal (applies MEDGEN (St [Moles/volume] mmol/L to non-numeric Rai's in Serum or results) [facility] [place]) Plasma eGFR If Africn 156 Normal (applies MEDGEN (S t Am mL/min/1. to non-numeric Rai's 73 results) [facility] [place]) Potassium 4.6 Normal (applies MEDGEN (St [Mass/volume] mmol/L to non-numeric Rai's in Blood results) Medical, ) Chloride 99 mmol/L Normal (applies MEDGEN (St [Moles/volume] to non-numeric Rai's in Serum or results) [facility], ) Plasma Carbon dioxide, 27 mmol/L Normal (applies MEDGEN ( St total to non-numeric Rai's [Moles/volume] results) [facility], ) in Serum or Plasma Calcium 9.9 mg/dL Normal (applies MEDGEN (St [Moles/volume] to non-numeric Rai's in Urine results) [facility], ) collected for unspecified duration ID Date Data Source [id number] 10/14/2018 12:00:00 AM [facility] Name Value Range Interpretation Description Data Sup porting Code Source(s) Document(s ) One Specimen Normal (applies to MEDGEN ( St Identifier non-numeric Rai's results) [facility], ) ID Date Data Source [id number] 10/14/2018 12:00:00 AM [facility] [place]) Name Value Range Interpretation Description Data Sup porting Code Source(s) Document(s ) Gamma glutamyl 34 IU/L Normal (applies to MEDGEN (St transferase non-numeric Rai's [Enzymatic results) [facility], ) activity/volume ] in Serum or Plasma ID Date Data Source [id number] 10/14/2018 12:00:00 AM ED[facility] [place] Name Value Range Interpretation Description Data Sup porting Code Source(s) Document(s ) Hepatitis A Negative Normal (applies MEDGEN (St virus IgM Ab to non-numeric Rai's [Presence] in results) [facility], ) Serum or Plasma by Immunoassay HBsAg Screen Negative Normal (applies MEDGEN (St to non-numeric Rai's results) [facility], ) Hepatitis B Negative Normal (applies MEDGEN (St virus core IgM to non-numeric Rai's Ab [Presence] results) [facility], ) in Serum or Plasma by Immunoassay Hep C Virus Ab 0.1 s/co Normal (applies MEDGEN (S t ratio to non-numeric Rai's results) [facility], ) ID Date Data Source [id number] 10/14/2018 12:00:00 AM EDT [facility] ([facility], ) Name Value Range Interpretation Description Data Sup porting Code Source(s) Document(s ) One Specimen Normal (applies to MEDGEN ( St Identifier non-numeric Rai's results) [facility], ) ID Date Data Source [id number] 10/14/2018 12:00:00 AM EDT [facility] ([facility], ) Name Value Range Interpretation Description Data Sup porting Code Source(s) Document(s ) Gamma glutamyl 34 IU/L Normal (applies to MEDGEN (St transferase non-numeric Rai's [Enzymatic results) [facility], ) activity/volume ] in Serum or Plasma ID Date Data Source [id number] 10/14/2018 12:00:00 AM EDT [facility] ([facility], ) Name Value Range Interpretation Description Data Sup porting Code Source(s) Document(s ) HBsAg Screen Negative Normal (applies MEDGEN (St to non-numeric Rai's results) [facility], ) Hepatitis A Negative Normal (applies MEDGEN (St virus IgM Ab to non-numeric Rai's [Presence] in results) [facility], ) Serum or Plasma by Immunoassay Hep C Virus Ab 0.1 s/co Normal (applies MEDGEN (S t ratio to non-numeric Rai's results) [facility], ) Hepatitis B Negative Normal (applies MEDGEN (St virus core IgM to non-numeric Rai's Ab [Presence] results) [facility], ) in Serum or Plasma by Immunoassay ID Date Data Source [id number] 10/14/2018 12:00:00 AM EDT [facility] ([facility], ) Name Value Range Interpretation Description Data Sup porting Code Source(s) Document(s ) One Specimen Normal (applies to MEDGEN ( St Identifier non-numeric Rai's results) [facility], ) ID Date Data Source [id number] 10/14/2018 12:00:00 AM EDT [facility] ([facility], ) Name Value Range Interpretation Description Data Sup porting Code Source(s) Document(s ) Gamma glutamyl 34 IU/L Normal (applies to MEDGEN (St transferase non-numeric Rai's [Enzymatic results) [facility], ) activity/volume ] in Serum or Plasma ID Date Data Source [id number] 10/14/2018 12:00:00 AM EDT [facility] ([facility], ) Name Value Range Interpretation Description Data Sup porting Code Source(s) Document(s ) HBsAg Screen Negative Normal (applies MEDGEN (St to non-numeric Rai's results) Medical, ) Hepatitis A Negative Normal (applies MEDGEN (St virus IgM Ab to non-numeric Rai's [Presence] in results) Medical, ) Serum or Plasma by Immunoassay Hepatitis B Negative Normal (applies MEDGEN (St virus core IgM to non-numeric Rai's Ab [Presence] results) [facility], ) in Serum or Plasma by Immunoassay Hep C Virus Ab 0.1 s/co Normal (applies MEDGEN (S t ratio to non-numeric Rai's results) Medical, ) ID Date Data Source [id number] 10/14/2018 12:00:00 AM EDT [facility] ([facility], ) Name Value Range Interpretation Code Description Data Linda rce(s) Supporting Document(s ) ID Date Data Source [id number] 10/14/2018 12:00:00 AM EDT MEDGEN ([employer] [facility], ) Name Value Range Interpretation Code Description Data Linda rce(s) Supporting Document(s ) GGT 34 IU/L Normal (applies to MEDGEN (St non-numeric results) Rai's Me [facility], ) ID Date Data Source [id number] 10/14/2018 12:00:00 AM EDT MEDGEN ([employer] [facility], ) Name Value Range Interpretation Description Data Sup porting Code Source(s) Document(s ) Hepatitis A Negative Normal (applies MEDGEN (St virus IgM Ab to non-numeric Rai's [Presence] in results) Medical, ) Serum or Plasma by Immunoassay HBsAg Screen Negative Normal (applies MEDGEN (St to non-numeric Rai's results) Medical, ) Hep C Virus Ab 0.1 s/co Normal (applies MEDGEN (S t ratio to non-numeric Rai's results) [facility], ) Hepatitis B Negative Normal (applies MEDGEN (St virus core IgM to non-numeric Rai's Ab [Presence] results) [facility], ) in Serum or Plasma by Immunoassay ID Date Data Source [id number] 10/14/2018 12:00:00 AM EDT [facility] ([facility], ) Name Value Range Interpretation Code Description Data Linda rce(s) Supporting Document(s ) ID Date Data Source [id number] 10/14/2018 12:00:00 AM EDT [facility] Name Value Range Interpretation Code Description Data Linda rce(s) Supporting Document(s ) GGT 34 IU/L Normal (applies to MEDGEN (St non-numeric results) Rai's Me dical, [facility]) ID Date Data Source [id number] 10/14/2018 12:00:00 AM EDT [facility] ([facility] Name Value Range Interpretation Description Data Sup porting Code Source(s) Document(s ) Hepatitis A Negative Normal (applies MEDGEN (St virus IgM Ab to non-numeric Rai's [Presence] in results) Medical, ) Serum or Plasma by Immunoassay HBsAg Screen Negative Normal (applies MEDGEN (St to non-numeric Rai's results) Medical, ) Hepatitis B Negative Normal (applies MEDGEN (St virus core IgM to non-numeric Rai's Ab [Presence] results) [facility], ) in Serum or Plasma by Immunoassay Hep C Virus Ab 0.1 s/co Normal (applies MEDGEN (S t ratio to non-numeric Rai's results) Medical, ) ID Date Data Source [id number] 10/14/2018 12:00:00 AM EDT [facility] ([facility] ) Name Value Range Interpretation Code Description Data Linda rce(s) Supporting Document(s ) ID Date Data Source [id number] 10/14/2018 12:00:00 AM EDT [facility] ([facility], ) Name Value Range Interpretation Code Description Data Linda rce(s) Supporting Document(s ) GGT 34 IU/L Normal (applies to MEDGEN (St non-numeric results) Rai's Me dical, [facility]) ID Date Data Source [id number] 10/14/2018 12:00:00 AM EDT [facility] Name Value Range Interpretation Description Data Sup porting Code Source(s) Document(s ) Hepatitis A Negative Normal (applies MEDGEN (St virus IgM Ab to non-numeric Rai's [Presence] in results) Medical, ) Serum or Plasma by Immunoassay HBsAg Screen Negative Normal (applies MEDGEN (St to non-numeric Rai's results) Medical, ) Hepatitis B Negative Normal (applies MEDGEN (St virus core IgM to non-numeric Rai's Ab [Presence] results) [facility], ) in Serum or Plasma by Immunoassay Hep C Virus Ab 0.1 s/co Normal (applies MEDGEN (S t ratio to non-numeric [facility] results) [facility], ) ID Date Data Source [id number] 10/14/2018 12:00:00 AM EDT MED[facility] ([facility] Name Value Range Interpretation Code Description Data Linda rce(s) Supporting Document(s ) ID Date Data Source [id number] 10/14/2018 12:00:00 AM EDT [facility] ([facility] Name Value Range Interpretation Code Description Data Linda rce(s) Supporting Document(s ) GGT 34 IU/L Normal (applies to [facility]GEN (St non-numeric results) [facility]) ID Date Data Source [id number] 10/14/2018 12:00:00 AM EDT [facility] ([facility] ) Name Value Range Interpretation Description Data Sup porting Code Source(s) Document(s ) Hepatitis A Negative Normal (applies MEDGEN (St virus IgM Ab to non-numeric [facility] [Presence] in results) [facility], ) Serum or Plasma by Immunoassay Hepatitis B Negative Normal (applies MEDGEN (St virus core IgM to non-numeric [facility] Ab [Presence] results) [facility], ) in Serum or Plasma by Immunoassay HBsAg Screen Negative Normal (applies MEDGEN (St to non-numeric [facility] results) [facility], ) Hep C Virus Ab 0.1 s/co Normal (applies MEDGEN (S t ratio to non-numeric [facility] results) [facility], ) ID Date Data Source [id number] 10/14/2018 12:00:00 AM EDT MEDGEN ([facility]) Name Value Range Interpretation Code Description Data Linda rce(s) Supporting Document(s ) ID Date Data Source [id number] 10/14/2018 12:00:00 AM EDT MED[facility] ([facility]) Name Value Range Interpretation Code Description Data Linda rce(s) Supporting Document(s ) GGT 34 IU/L Normal (applies to MEDGEN (St non-numeric results) [facility]) ID Date Data Source [id number] 10/14/2018 12:00:00 AM EDT MED[facility] ([facility]) Name Value Range Interpretation Description Data Sup porting Code Source(s) Document(s ) HBsAg Screen Negative Normal (applies MEDGEN (St to non-numeric [facility] results) [facility]) Hepatitis A Negative Normal (applies MEDGEN (St virus IgM Ab to non-numeric [facility] [Presence] in results) [facility]) Serum or Plasma by Immunoassay Hepatitis B Negative Normal (applies MEDGEN (St virus core IgM to non-numeric [facility] Ab [Presence] results) [facility]) in Serum or Plasma by Immunoassay Hep C Virus Ab 0.1 s/co Normal (applies [facility]GEN (S t ratio to non-numeric [facility] results) [facility]) Procedure Social History Code Duration Value Status Description Data Source(s ) Smoking 11/20/2019 denies tobacco, completed denies tobacco, MEDG EN ([facility] 12:00:00 AM EDT alcohol, drugs alcohol, drugs edical, PC) Smoking 11/20/2019 Unknown if ever completed Unknown if ever MEDG EN ([facility] 12:00:00 AM EDT smoked smoked [facility]) Smoking 11/07/2019 denies tobacco, completed denies tobacco, MEDG EN ([facility] 12:00:00 AM EDT alcohol, drugs alcohol, drugs edical, PC) Smoking 11/07/2019 Unknown if ever completed Unknown if ever MEDG EN ([facility] 12:00:00 AM EDT smoked smoked [facility]) Smoking 10/25/2019 denies tobacco, completed denies tobacco, MEDG EN ([facility] 12:00:00 AM EDT alcohol, drugs alcohol, drugs edical, PC) Smoking 10/25/2019 Unknown if ever completed Unknown if ever MEDG EN ([facility] 12:00:00 AM EDT smoked [facility]) Smoking 09/12/2019 denies tobacco, completed denies tobacco, MEDG EN ([facility] 12:00:00 AM EDT alcohol, drugs alcohol, drugs edical, PC) Smoking 09/12/2019 Unknown if ever completed Unknown if ever MEDG EN ([facility] 12:00:00 AM EDT smoked smoked [facility], [facility]) Smoking 09/06/2019 denies tobacco, completed denies tobacco, MEDG EN ([facility] 12:00:00 AM EDT alcohol, drugs alcohol, drugs edical, PC) Smoking 09/06/2019 Unknown if ever completed Unknown if ever MEDG EN ([facility] 12:00:00 AM EDT smoked smoked Medical, [facility]) Smoking 09/06/2019 denies tobacco, completed denies tobacco, MEDG EN ([facility] 12:00:00 AM EDT alcohol, drugs alcohol, drugs edical, PC) Smoking 09/06/2019 Unknown if ever completed Unknown if ever MEDG EN ([facility] 12:00:00 AM EDT smoked smoked [facility], [facility]) Smoking 09/05/2019 denies tobacco, completed denies tobacco, MEDG EN ([facility] 12:00:00 AM EDT alcohol, drugs alcohol, drugs edical, PC) Smoking 09/05/2019 Unknown if ever completed Unknown if ever MEDG EN ([facility] 12:00:00 AM EDT smoked smoked [facility], [facility]) Smoking 08/29/2019 denies tobacco, completed denies tobacco, MEDG EN ([facility] 12:00:00 AM EDT alcohol, drugs alcohol, drugs edical, PC) Smoking 08/29/2019 Unknown if ever completed Unknown if ever MEDG EN ([facility] 12:00:00 AM EDT smoked smoked [facility], [facility]) Vital Signs ID Date Data Source UNK Name Value Range Interpretation Code Description Data Source(s) Heart rate 70 /min 70 /min MEDGEN ([facility]) Inhaled oxygen 98 % 98 % MEDGEN ([facility]) Body mass index 33.7 kg/m2 33.7 kg/m2 MEDGEN (S t (BMI) [Ratio] [facility]) Diastolic blood 82 mm[Hg] 82 mm[Hg] MEDGEN (S t pressure [facility]) Systolic blood 122 mm[Hg] 122 mm[Hg] MEDGEN ([facility]) Body weight 209 lb 209 [facility] Body height 66 in 66 in [facility] ([facility]) Heart rate 200 /min 200 /min MEDGEN ([facility]) Respiratory rate 12 /min 12 /min MEDGEN ( [facility] , ) Inhaled oxygen 98 % 98 % MEDGEN ([facility], ) Body mass index 33.6 kg/m2 33.6 kg/m2 MEDGEN (S t (BMI) [Ratio] [facility], ) Diastolic blood 64 mm[Hg] 64 mm[Hg] MEDGEN (S t pressure [facility] , ) Systolic blood 130 mm[Hg] 130 mm[Hg] MEDGEN ([facility] , ) Body weight 208 lb 208 lb MEDGEN ([facility]) Body height 66 in 66 in MEDGEN ([facility]) Heart rate 200 /min 200 /min MEDGEN ([facility]) Respiratory rate 12 /min 12 /min MEDGEN ( [facility] , ) Inhaled oxygen 98 % 98 % MEDGEN ([facility], ) Body mass index 33.6 kg/m2 33.6 kg/m2 MEDGEN (S t (BMI) [Ratio] [facility], ) Diastolic blood 64 mm[Hg] 64 mm[Hg] MEDGEN (S t pressure [facility] , ) Systolic blood 130 mm[Hg] 130 mm[Hg] MEDGEN ([facility] , ) Body weight 208 lb 208 lb MEDGEN ([facility]) Body height 66 in 66 in MEDGEN ([facility]) Heart rate 64 /min 64 /min MEDGEN ([facility] , ) Respiratory rate 12 /min 12 /min MEDGEN ( [facility] , ) Body mass index 33.6 kg/m2 33.6 kg/m2 MEDGEN (S t (BMI) [Ratio] [facility], ) Diastolic blood 78 mm[Hg] 78 mm[Hg] MEDGEN (S t pressure [facility] , ) Systolic blood 120 mm[Hg] 120 mm[Hg] MEDGEN ([facility] , ) Body weight 208 lb 208 lb MEDGEN ([facility]) Body height 66 in 66 in MEDGEN ([facility]) Heart rate 64 /min 64 /min MEDGEN ([facility]) Respiratory rate 12 /min 12 /min MEDGEN ( [facility] , ) Body mass index 33.6 kg/m2 33.6 kg/m2 MEDGEN (S t (BMI) [Ratio] [facility], ) Diastolic blood 78 mm[Hg] 78 mm[Hg] MEDGEN (S t pressure [facility] , ) Systolic blood 120 mm[Hg] 120 mm[Hg] MEDGEN ([facility] , ) Body weight 208 lb 208 lb MEDGEN ([facility]) Body height 66 in 66 in MEDGEN ([facility]) Heart rate 64 /min 64 /min MEDGEN ([facility]) Respiratory rate 12 /min 12 /min MEDGEN ( [facility]) Body mass index 33.6 kg/m2 33.6 kg/m2 MEDGEN (S t (BMI) [Ratio] [facility], ) Diastolic blood 78 mm[Hg] 78 mm[Hg] MEDGEN (S t pressure [facility] , ) Systolic blood 120 mm[Hg] 120 mm[Hg] MEDGEN ([facility]) Body weight 208 lb 208 lb MEDGEN ([facility]) Body height 66 in 66 in MEDGEN ([facility]) Heart rate 80 /min 80 /min MEDGEN ([facility]) Respiratory rate 14 /min 14 /min MEDGEN ( [facility]) Body temperature 97 F 97 F MEDGEN ( [facility]) Inhaled oxygen 99 % 99 % MEDGEN ([facility], ) Diastolic blood 80 mm[Hg] 80 mm[Hg] MEDGEN (S t pressure [facility] , ) Systolic blood 114 mm[Hg] 114 mm[Hg] MEDGEN ([facility] , ) Body height 66 in 66 in MEDGEN ([facility]) Heart rate 80 /min 80 /min MEDGEN ([facility]) Respiratory rate 14 /min 14 /min MEDGEN ( [facility]) Body temperature 97 F 97 F MEDGEN ( [facility]) Inhaled oxygen 99 % 99 % MEDGEN ([facility], ) Diastolic blood 80 mm[Hg] 80 mm[Hg] MEDGEN (S t pressure [facility] , ) Systolic blood 114 mm[Hg] 114 mm[Hg] MEDGEN (St pressure [facility] , ) Body height 66 in 66 in MEDGEN ([facility] , ) Heart rate 80 /min 80 /min MEDGEN ([place] , ) Respiratory rate 14 /min 14 /min MEDGEN ( [place] , ) Body temperature 97 F 97 F MEDGEN ( [facility] , ) Inhaled oxygen 99 % 99 % MEDGEN (St concentration [facility], ) Diastolic blood 80 mm[Hg] 80 mm[Hg] MEDGEN (S t pressure [facility] , ) Systolic blood 114 mm[Hg] 114 mm[Hg] MEDGEN ([facility] , ) Body height 66 in 66 in MEDGEN ([facility] , ) Heart rate 80 /min 80 /min MEDGEN ([facility] , ) Respiratory rate 14 /min 14 /min MEDGEN ( [facility] , ) Body temperature 97 F 97 F MEDGEN ( [facility] , ) Inhaled oxygen 99 % 99 % MEDGEN (St concentration [facility], ) Diastolic blood 80 mm[Hg] 80 mm[Hg] MEDGEN (S t pressure [facility] , ) Systolic blood 114 mm[Hg] 114 mm[Hg] MEDGEN (St pressure [facility] , ) Body height 66 in 66 in MEDGEN ([facility] , ) Heart rate 80 /min 80 /min MEDGEN ([facility] , ) Respiratory rate 14 /min 14 /min MEDGEN ( [facility] , ) Body temperature 97 F 97 F MEDGEN ( [place] , ) Inhaled oxygen 99 % 99 % MEDGEN (St concentration [facility], ) Diastolic blood 80 mm[Hg] 80 mm[Hg] MEDGEN (S t pressure [facility] , ) Systolic blood 114 mm[Hg] 114 mm[Hg] MEDGEN (St pressure [facility] , ) Body height 66 in 66 in MEDGEN ([facility] , ) Heart rate 80 /min 80 /min MEDGEN ([facility] , ) Respiratory rate 14 /min 14 /min MEDGEN ( [facility] , ) Body temperature 97 F 97 F MEDGEN ( [facility]) Inhaled oxygen 99 % 99 % MEDGEN ([facility], ) Diastolic blood 80 mm[Hg] 80 mm[Hg] MEDGEN (S t pressure [facility] , ) Systolic blood 114 mm[Hg] 114 mm[Hg] MEDGEN ([facility] , ) Body height 66 in 66 in MEDGEN ([facility] , ) Heart rate 74 /min 74 /min MEDGEN ([facility]) Respiratory rate 14 /min 14 /min MEDGEN ( [facility] , ) Body temperature 98 F 98 F MEDGEN ( [facility] , ) Inhaled oxygen 99 % 99 % MEDGEN ([facility], ) Heart rate 74 /min 74 /min MEDGEN ([facility] , ) Respiratory rate 14 /min 14 /min MEDGEN ( [facility] , ) Body temperature 98 F 98 F MEDGEN ( [facility]) Inhaled oxygen 99 % 99 % MEDGEN ([facility], ) Body mass index -1 kg/m2 -1 kg/m2 MEDGEN (S t (BMI) [Ratio] [facility], ) Diastolic blood 82 mm[Hg] 82 mm[Hg] MEDGEN (S t pressure [facility] , ) Systolic blood 126 mm[Hg] 126 mm[Hg] MEDGEN ([facility] , ) Body height 66 in 66 in MEDGEN ([facility] , ) Heart rate 74 /min 74 /min MEDGEN ([facility] , ) Respiratory rate 14 /min 14 /min MEDGEN ( [facility] , ) Body temperature 98 F 98 F MEDGEN ( [facility] , ) Inhaled oxygen 99 % 99 % MEDGEN ([facility], ) Body mass index -1 kg/m2 -1 kg/m2 MEDGEN (S t (BMI) [Ratio] [facility], ) Diastolic blood 82 mm[Hg] 82 mm[Hg] MEDGEN (S t pressure [facility] , ) Systolic blood 126 mm[Hg] 126 mm[Hg] MEDGEN ([facility] , ) Body height 66 in 66 in MEDGEN ([facility]) Body mass index -1 kg/m2 -1 kg/m2 MEDGEN (S t (BMI) [Ratio] [facility], ) Diastolic blood 82 mm[Hg] 82 mm[Hg] MEDGEN (S t pressure [facility] , ) Systolic blood 126 mm[Hg] 126 mm[Hg] MEDGEN ([facility] , ) Body height 66 in 66 in MEDGEN ([facility]) Heart rate 74 /min 74 /min MEDGEN ([facility]) Respiratory rate 14 /min 14 /min MEDGEN ( [facility] , ) Body temperature 98 F 98 F MEDGEN ( [facility]) Inhaled oxygen 99 % 99 % MEDGEN ([facility], ) Body mass index -1 kg/m2 -1 kg/m2 MEDGEN (S t (BMI) [Ratio] [facility], ) Diastolic blood 82 mm[Hg] 82 mm[Hg] MEDGEN (S t pressure [facility] , ) Systolic blood 126 mm[Hg] 126 mm[Hg] MEDGEN ([facility] , ) Body height 66 in 66 in MEDGEN ([facility]) Heart rate 74 /min 74 /min MEDGEN ([facility] , ) Respiratory rate 14 /min 14 /min MEDGEN ( [facility] , ) Body temperature 98 F 98 F MEDGEN ( [facility]) Inhaled oxygen 99 % 99 % MEDGEN ([facility], ) Body mass index -1 kg/m2 -1 kg/m2 MEDGEN (S t (BMI) [Ratio] [facility], ) Diastolic blood 82 mm[Hg] 82 mm[Hg] MEDGEN (S t pressure [facility] , ) Systolic blood 126 mm[Hg] 126 mm[Hg] MEDGEN ([facility] , ) Body height 66 in 66 in MEDGEN ([facility]) Heart rate 74 /min 74 /min MEDGEN ([facility] , ) Respiratory rate 14 /min 14 /min MEDGEN ( [facility] , ) Body temperature 98 F 98 F MEDGEN ( [facility]) Inhaled oxygen 99 % 99 % MEDGEN ([facility], ) Body mass index -1 kg/m2 -1 kg/m2 MEDGEN (S t (BMI) [Ratio] [facility], ) Diastolic blood 82 mm[Hg] 82 mm[Hg] MEDGEN (S t pressure [facility] , ) Systolic blood 126 mm[Hg] 126 mm[Hg] MEDGEN ([facility] , ) Body height 66 in 66 in MEDGEN ([facility]) Heart rate 74 /min 74 /min MEDGEN ([facility] , ) Respiratory rate 14 /min 14 /min MEDGEN ( [facility] , ) Body temperature 98 F 98 F MEDGEN ( [facility]) Inhaled oxygen 99 % 99 % MEDGEN ([facility], ) Body mass index -1 kg/m2 -1 kg/m2 MEDGEN (S t (BMI) [Ratio] [facility], ) Diastolic blood 82 mm[Hg] 82 mm[Hg] MEDGEN (S t pressure [facility] , ) Systolic blood 126 mm[Hg] 126 mm[Hg] MEDGEN ([facility] , ) Body height 66 in 66 in MEDGEN ([facility]) Heart rate 74 /min 74 /min MEDGEN ([facility]) Respiratory rate 14 /min 14 /min MEDGEN ( [facility]) Body temperature 98 F 98 F MEDGEN ( [facility]) Inhaled oxygen 99 % 99 % MEDGEN ([facility], ) Body mass index -1 kg/m2 -1 kg/m2 MEDGEN (S t (BMI) [Ratio] [facility], ) Diastolic blood 82 mm[Hg] 82 mm[Hg] MEDGEN (S t pressure [facility] , ) Systolic blood 126 mm[Hg] 126 mm[Hg] MEDGEN ([facility] , ) Body height 66 in 66 in MEDGEN ([facility]) Heart rate 79 /min 79 /min MEDGEN ([facility]) Inhaled oxygen 99 % 99 % MEDGEN ([facility]) Body mass index 34.1 kg/m2 34.1 kg/m2 MEDGEN (S t (BMI) [Ratio] [facility], ) Diastolic blood 82 mm[Hg] 82 mm[Hg] MEDGEN (S t pressure [facility]) Systolic blood 124 mm[Hg] 124 mm[Hg] MEDGEN ([facility]) Body weight 211 lb 211 lb MEDGEN ([facility]) Body height 66 in 66 in MEDGEN ([facility]) Heart rate 79 /min 79 /min MEDGEN ([facility]) Inhaled oxygen 99 % 99 % MEDGEN ([facility], ) Body mass index 34.1 kg/m2 34.1 kg/m2 MEDGEN (S t (BMI) [Ratio] [facility], ) Diastolic blood 82 mm[Hg] 82 mm[Hg] MEDGEN (S t pressure [facility]) Systolic blood 124 mm[Hg] 124 mm[Hg] MEDGEN ([facility]) Body weight 211 lb 211 lb MEDGEN ([facility]) Body height 66 in 66 in MEDGEN ([facility]) Heart rate 79 /min 79 /min MEDGEN ([facility]) Inhaled oxygen 99 % 99 % MEDGEN ([facility], ) Body mass index 34.1 kg/m2 34.1 kg/m2 MEDGEN (S t (BMI) [Ratio] [facility], ) Diastolic blood 82 mm[Hg] 82 mm[Hg] MEDGEN (S t pressure [facility]) Systolic blood 124 mm[Hg] 124 mm[Hg] MEDGEN ([facility]) Body weight 211 lb 211 lb MEDGEN ([facility]) Body height 66 in 66 in MEDGEN ([facility]) Heart rate 79 /min 79 /min MEDGEN ([facility]) Inhaled oxygen 99 % 99 % MEDGEN ([facility], ) Body mass index 34.1 kg/m2 34.1 kg/m2 MEDGEN (S t (BMI) [Ratio] [facility], ) Diastolic blood 82 mm[Hg] 82 mm[Hg] MEDGEN (S t pressure [facility]) Systolic blood 124 mm[Hg] 124 mm[Hg] MEDGEN ([facility]) Body weight 211 lb 211 lb MEDGEN ([facility]) Body height 66 in 66 in MEDGEN ([facility]) Heart rate 79 /min 79 /min MEDGEN ([facility]) Inhaled oxygen 99 % 99 % MEDGEN ([facility]) Body mass index 34.1 kg/m2 34.1 kg/m2 MEDGEN (S t (BMI) [Ratio] [facility], ) Diastolic blood 82 mm[Hg] 82 mm[Hg] MEDGEN (S t pressure [facility]) Systolic blood 124 mm[Hg] 124 mm[Hg] MEDGEN ([facility]) Body weight 211 lb 211 lb MEDGEN ([facility]) Body height 66 in 66 in MEDGEN ([facility]) Heart rate 79 /min 79 /min MEDGEN ([facility]) Inhaled oxygen 99 % 99 % MEDGEN ([facility]) Body mass index 34.1 kg/m2 34.1 kg/m2 MEDGEN (S t (BMI) [Ratio] [facility], ) Diastolic blood 82 mm[Hg] 82 mm[Hg] MEDGEN ([facility] Systolic blood 124 mm[Hg] 124 mm[Hg] MEDGEN ([facility]) Body weight 211 lb 211 lb MEDGEN ([facility]) Body height 66 in 66 in MEDGEN ([facility]) Heart rate 79 /min 79 /min MEDGEN ([facility]) Inhaled oxygen 99 % 99 % MEDGEN ([facility], ) Body mass index 34.1 kg/m2 34.1 kg/m2 MEDGEN (S t (BMI) [Ratio] [facility]) Diastolic blood 82 mm[Hg] 82 mm[Hg] MEDGEN (S t pressure [facility]) Systolic blood 124 mm[Hg] 124 mm[Hg] MEDGEN ([facility]) Body weight 211 lb 211 lb MEDGEN ([facility]) Body height 66 in 66 in MEDGEN ([facility]) Heart rate 79 /min 79 /min MEDGEN ([facility]) Inhaled oxygen 99 % 99 % MEDGEN ([facility], ) Body mass index 34.1 kg/m2 34.1 kg/m2 MEDGEN (S t (BMI) [Ratio] [facility], ) Diastolic blood 82 mm[Hg] 82 mm[Hg] MEDGEN (S t pressure [facility]) Systolic blood 124 mm[Hg] 124 mm[Hg] MEDGEN ([facility]) Body weight 211 lb 211 lb MEDGEN ([facility]) Body height 66 in 66 in MEDGEN ([facility]) Heart rate 75 /min 75 /min MEDGEN ([facility]) Respiratory rate 14 /min 14 /min MEDGEN ( [facility]) Diastolic blood 88 mm[Hg] 88 mm[Hg] MEDGEN (S t pressure [facility]) Systolic blood 129 mm[Hg] 129 mm[Hg] MEDGEN ([facility]) Heart rate 75 /min 75 /min MEDGEN ([facility]) Respiratory rate 14 /min 14 /min MEDGEN ( [facility]) Diastolic blood 88 mm[Hg] 88 mm[Hg] MEDGEN (S t pressure [facility]) Systolic blood 129 mm[Hg] 129 mm[Hg] MEDGEN ([facility]) Heart rate 75 /min 75 /min MEDGEN ([facility]) Respiratory rate 14 /min 14 /min MEDGEN ( [facility]) Diastolic blood 88 mm[Hg] 88 mm[Hg] MEDGEN (S t pressure [facility]) Systolic blood 129 mm[Hg] 129 mm[Hg] MEDGEN (St [facility]) Heart rate 75 /min 75 /min MEDGEN ([facility]) Respiratory rate 14 /min 14 /min MEDGEN ( [facility]) Diastolic blood 88 mm[Hg] 88 mm[Hg] MEDGEN (S t pressure [facility]) Systolic blood 129 mm[Hg] 129 mm[Hg] MEDGEN (St pressure [facility]) Systolic blood 129 mm[Hg] 129 mm[Hg] MEDGEN (St pressure [facility]) Heart rate 75 /min 75 /min MEDGEN ([facility]) Respiratory rate 14 /min 14 /min MEDGEN ( [facility]) Diastolic blood 88 mm[Hg] 88 mm[Hg] MEDGEN (S t pressure [facility]) Systolic blood 129 mm[Hg] 129 mm[Hg] MEDGEN (St pressure [facility]) Heart rate 75 /min 75 /min MEDGEN ([facility]) Respiratory rate 14 /min 14 /min MEDGEN ( [facility]) Diastolic blood 88 mm[Hg] 88 mm[Hg] [facility] ([facility] Systolic blood 129 mm[Hg] 129 mm[Hg] [facility] ([facility] Heart rate 75 /min 75 /min [facility] ([facility] Respiratory rate 14 /min 14 /min [facility] ( [facility] Diastolic blood 88 mm[Hg] 88 mm[Hg] [facility] ([facility] Systolic blood 129 mm[Hg] 129 mm[Hg] [facility] ([facility] Heart rate 75 /min 75 /min [facility] ([facility] Respiratory rate 14 /min 14 /min [facility] ( [facility] Diastolic blood 88 mm[Hg] 88 mm[Hg] [facility] ([facility]
[2019-12-04 12:09] VITALS: BMI 33.7
--- OUTSIDE RECORDS SUMMARY | 2019-12-06 11:57 | XMS ---
:1985 [facility] Providers Name Role Phone Androne, [...] is protected by Article 27-F of the [place] [employer] law. If you continue you may haveaccess to information: Regarding HIV / AIDS; Provided by facilities licensed or operated by the [place] Office of Mental Health; or Provided by the [place] Office for People With Developmental Disabilities. If such information is present, then the following [place] mandated warning applies: This information has been [...] law may result in a fine or shelter sentence or both. A general authorization for the release of medical or other information is NOT sufficient authorization for further disclosure. Allergies and Adverse Reactions Type Description Substance Reaction Status Data Source(s ) Drug allergy penicillin Penicillin G Active [facility] ([facility], ) Encounters Encounter Providers Location Date Indications Data Source(s ) Attender: Elba 11/20/2019 MED[facility] (S [facility] frano 12:00:00 AM EDT Medical, ) Office Attender: Elba Pastrana 11/20/2019 12:00:00 AM EDT [facility] ([facility], ) Office Attender: Elba Pastrana 11/20/2019 12:00:00 AM EDT MED[facility] ([facility], ) Office Attender: Higinio Ghosh 10/26/2019 12:00:00 AM EDT [facility] ([facility], ) Office Attender: Chari Andshahida 10/25/2019 12:00:00 AM ED T MEDGEN ([facility], ) Office Attender: Chari Androne 10/25/2019 12:00:00 AM ED T [facility] ([facility], ) Office Attender: Chari Androne 10/25/2019 12:00:00 AM ED T [facility] ([facility], ) Office Attender: Chari Androne 10/25/2019 12:00:00 AM ED T [facility] ([facility], ) Office Attender: Chari Androne 09/06/2019 12:00:00 AM ED T [facility] ([facility]) Office Attender: Chari Androne 09/06/2019 12:00:00 AM ED T [facility] ([facility]) Office Attender: Chari Androne 09/06/2019 12:00:00 AM ED T [facility] ([facility]) Office Attender: Chari Androne 09/06/2019 12:00:00 AM ED T [facility] ([facility]) Office Attender: Chari Androne 09/06/2019 12:00:00 AM ED T [facility] ([facility]) Office Attender: Chari Androne 08/23/2019 12:00:00 AM ED T [facility] ([facility]) Office Attender: Chari Androne 08/23/2019 12:00:00 AM ED T [facility] ([facility]) Office Attender: Chari Androne 08/23/2019 12:00:00 AM ED T [facility] ([facility]) Office Attender: Chari Androne 08/23/2019 12:00:00 AM ED T [facility] ([facility]) Office Attender: Chari Androne 08/23/2019 12:00:00 AM ED T [facility] ([facility]) Office Medications Medication Brand Start Product Dose Route Administrative Pharmacy [facility] Indications Reaction Description Data Name Date Form Instructions Instructions Source(s) pantoprazol PROTON 11/19/ DELAYED 30 complet PRO TONIX MEDGEN (St e 40 MG [id number] 2019 RELEASE [facility] Delayed 400 12:00: TABLET Medical, Release 00 AM ) Oral Tablet EDT [Protonix] PROTONIX:28 4400 CLOBETASOL complet CLOBETASO L MEDGEN (St PROPIONATE 2019 ed PROPIONATE [facility] n's EXTERNAL 12:00: EXTERNAL Medic al, CREAM: 00 AM CREAM ) EDT CLOBETASOL complet CLOBETASO L MEDGEN (St PROPIONATE 2019 ed PROPIONATE [facility] n's EXTERNAL 12:00: EXTERNAL Medic al, CREAM: [...] name Policy type Policy ID Covered Covered republican's Policy P nico / Coverage republican ID relationship to [place] [facility] ormation type solano UN MEDICAID [id number] SP [id number] COMM PLAN MEDICAID [id number] [id number] HEALTHCARE PPO [facility] MEDICAID [id number] SP [id number] COMM [facility] [id number] HEALTHCARE COMMUNITY PLAN [facility] [id number] HEALTHCARE COMM[place]ITY PLAN [place] OF [id number] [facility] [id number] CARE [facility] [id number] CARE HMO/POS/EPO SELF PAY SP INSURANCE [facility] [id number] SP [id number] [facility] [id number] Problems, Conditions, and Diagnoses Code Display Name Description Problem Effective Data Type Dates Source(s) R10.13 Epigastric pain EPIGASTRIC PAIN Problem 11/20/2019 MEDG EN (St 12:00:00 AM [facility], ) M54.16 Radiculopathy, lumbar RADICULOPATHY, LUMBAR Problem MEDGEN (St region REGION 12:00:00 AM [facility], ) M54.16 Radiculopathy, lumbar RADICULOPATHY, LUMBAR Problem MEDGEN (St region REGION 12:00:00 AM [facility], ) E83.52 Hypercalcemia HYPERCALCEMIA Problem 10/25/2019 MEDGEN ( St 12:00:00 AM [facility], ) M54.5 Low back pain LOW BACK PAIN Problem 10/25/2019 MEDGEN ( St 12:00:00 AM [facility], ) K21.9 Gastro-esophageal GASTRO-ESOPHAGEAL Problem 10/25/2019 MEDGEN (St reflux disease REFLUX DISEASE 12:00:00 AM Rai' s without esophagitis WITHOUT ESOPHAGITIS [facility], ) I10 Essential (primary) ESSENTIAL (PRIMARY) Problem 020 MEDGEN (St hypertension HYPERTENSION 12:00:00 AM [facility], ) E83.52 Hypercalcemia HYPERCALCEMIA Problem 10/25/2019 MEDGEN ( St 12:00:00 AM [facility], ) M54.5 Low back pain LOW BACK PAIN Problem 10/25/2019 MEDGEN ( St 12:00:00 AM [facility], ) K21.9 Gastro-esophageal GASTRO-ESOPHAGEAL Problem 10/25/2019 MEDGEN (St reflux disease REFLUX DISEASE 12:00:00 AM Rai' s without esophagitis WITHOUT ESOPHAGITIS [facility], ) I10 Essential (primary) ESSENTIAL (PRIMARY) Problem MEDGEN (St hypertension HYPERTENSION 12:00:00 AM [facility], ) E83.52 Hypercalcemia HYPERCALCEMIA Problem 10/25/2019 MEDGEN ( St 12:00:00 AM [facility], ) M54.5 Low back pain LOW BACK PAIN Problem 10/25/2019 MEDGEN ( St 12:00:00 AM [facility], ) K21.9 Gastro-esophageal GASTRO-ESOPHAGEAL Problem 10/25/2019 MEDGEN (St reflux disease REFLUX DISEASE 12:00:00 AM Rai' s without esophagitis WITHOUT ESOPHAGITIS [facility], ) I10 Essential (primary) ESSENTIAL (PRIMARY) Problem MEDGEN (St hypertension HYPERTENSION 12:00:00 AM [facility]) R94.31 Abnormal ABNORMAL Problem 09/06/2019 MEDGEN (St electrocardiogram ELECTROCARDIOGRAM 12:00:00 AM [facility] [ECG] [EKG] [ECG] [EKG] [facility]) M79.675 Pain in left toe(s) PAIN IN LEFT TOE(S) Problem 020 MEDGEN (St 12:00:00 AM [facility]) M79.674 Pain in right toe(s) PAIN IN RIGHT TOE(S) Problem 09/05 MEDGEN (St 12:00:00 AM [facility], ) K76.0 Fatty (change of) FATTY (CHANGE OF) Problem 09/06/2019 MEDGEN (St liver, not elsewhere LIVER, NOT ELSEWHERE 12:00 :00 AM [facility] classified [facility], ) E78.5 Hyperlipidemia, HYPERLIPIDEMIA, Problem 09/06/2019 MEDG EN (St unspecified UNSPECIFIED 12:00:00 AM [facility], ) L60.0 Ingrowing nail INGROWIN NAIL Problem 09/06/2019 MEDGEN (St 12:00:00 AM [facility]) G47.30 Sleep apnea, SLEEP APNEA, Problem 09/06/2019 MEDGEN (St unspecified UNSPECIFIED 12:00:00 AM [facility]) R94.31 Abnormal ABNORMAL Problem 09/06/2019 MEDGEN (St electrocardiogram ELECTROCARDIOGRAM 12:00:00 AM [facility] [ECG] [EKG] [ECG] [EKG] [facility]) M79.675 Pain in left toe(s) PAIN IN LEFT TOE(S) Problem 020 MEDGEN (St 12:00:00 AM [facility]) M79.674 Pain in right toe(s) PAIN IN RIGHT TOE(S) Problem 09/05 MEDGEN (St 12:00:00 AM [facility], ) K76.0 Fatty (change of) FATTY (CHANGE OF) Problem 09/06/2019 MEDGEN (St liver, not elsewhere LIVER, NOT ELSEWHERE 12:00 :00 AM [facility] classified [facility], ) E78.5 Hyperlipidemia, HYPERLIPIDEMIA, Problem 09/06/2019 MEDG EN (St unspecified UNSPECIFIED 12:00:00 AM [facility], ) L60.0 Ingrowing nail INGROWIN NAIL Problem 09/06/2019 MEDGEN (St 12:00:00 AM [facility], ) G47.30 Sleep apnea, SLEEP APNEA, Problem 09/06/2019 MEDGEN (St unspecified UNSPECIFIED 12:00:00 AM [facility], ) R94.31 Abnormal ABNORMAL Problem 09/06/2019 MEDGEN (St electrocardiogram ELECTROCARDIOGRAM 12:00:00 AM Rai's [ECG] [EKG] [ECG] [EKG] [facility], ) M79.675 Pain in left toe(s) PAIN IN LEFT TOE(S) Problem 020 MEDGEN (St 12:00:00 AM [facility], ) M79.674 Pain in right toe(s) PAIN IN RIGHT TOE(S) Problem 09/05 MEDGEN (St 12:00:00 AM [facility], ) K76.0 Fatty (change of) FATTY (CHANGE OF) Problem 09/06/2019 MEDGEN (St liver, not elsewhere LIVER, NOT ELSEWHERE 12:00 :00 AM [facility] classified CLASSIFIED [facility], ) E78.5 Hyperlipidemia, HYPERLIPIDEMIA, Problem 09/06/2019 MEDG EN (St unspecified UNSPECIFIED 12:00:00 AM [facility], ) L60.0 Ingrowing nail INGROWIN NAIL Problem 09/06/2019 MEDGEN (St 12:00:00 AM [facility], ) G47.30 Sleep apnea, SLEEP APNEA, Problem 09/06/2019 MEDGEN (St unspecified UNSPECIFIED 12:00:00 AM [facility], ) R94.31 Abnormal ABNORMAL Problem 09/06/2019 MEDGEN (St electrocardiogram ELECTROCARDIOGRAM 12:00:00 AM Rai's [ECG] [EKG] [ECG] [EKG] [facility], ) M79.675 Pain in left toe(s) PAIN IN LEFT TOE(S) Problem 020 MEDGEN (St 12:00:00 AM [facility], ) M79.674 Pain in right toe(s) PAIN IN RIGHT TOE(S) Problem 09/05 MEDGEN (St 12:00:00 AM [facility], ) K76.0 Fatty (change of) FATTY (CHANGE OF) Problem 09/06/2019 MEDGEN (St liver, not elsewhere LIVER, NOT ELSEWHERE 12:00 :00 AM [facility] classified [facility], ) E78.5 Hyperlipidemia, HYPERLIPIDEMIA, Problem 09/06/2019 MEDG EN (St unspecified UNSPECIFIED 12:00:00 AM [facility], ) L60.0 Ingrowing nail INGROWIN NAIL Problem 09/06/2019 MEDGEN (St 12:00:00 AM [facility], ) G47.30 Sleep apnea, SLEEP APNEA, Problem 09/06/2019 MEDGEN (St unspecified UNSPECIFIED 12:00:00 AM [facility], ) R94.31 Abnormal ABNORMAL Problem 09/06/2019 MEDGEN (St electrocardiogram ELECTROCARDIOGRAM 12:00:00 AM [facility] [ECG] [EKG] [ECG] [EKG] [facility], ) M79.675 Pain in left toe(s) PAIN IN LEFT TOE(S) Problem 020 MEDGEN (St 12:00:00 AM [facility], ) M79.674 Pain in right toe(s) PAIN IN RIGHT TOE(S) Problem 09/05 MEDGEN (St 12:00:00 AM [facility], ) K76.0 Fatty (change of) FATTY (CHANGE OF) Problem 09/06/2019 MEDGEN (St liver, not elsewhere LIVER, NOT ELSEWHERE 12:00 :00 AM [facility], ) E78.5 Hyperlipidemia, HYPERLIPIDEMIA, Problem 09/06/2019 MEDG EN (St unspecified UNSPECIFIED 12:00:00 AM [facility], ) L60.0 Ingrowing nail INGROWIN NAIL Problem 09/06/2019 MEDGEN (St 12:00:00 AM [facility], ) G47.30 Sleep apnea, SLEEP APNEA, Problem 09/06/2019 MEDGEN (St unspecified UNSPECIFIED 12:00:00 AM [facility], ) M79.675 Pain in left toe(s) PAIN IN LEFT TOE(S) Problem 020 MEDGEN (St 12:00:00 AM [facility], ) M79.674 Pain in right toe(s) PAIN IN RIGHT TOE(S) Problem 09/05 MEDGEN (St 12:00:00 AM [facility], ) L60.0 Ingrowing nail INGROWIN NAIL Problem 09/06/2019 MEDGEN (St 12:00:00 AM [facility], ) E66.3 Overweight OVERWEIGHT Problem 08/23/2019 MEDGEN (St 12:00:00 AM [facility]'s EDT [facility], ) G40.89 Other seizures OTHER SEIZURES Problem 08/23/2019 MEDGEN (St 12:00:00 AM [facility]'s EDT [facility], ) R21 Rash and other RASH AND OTHER Problem 08/23/2019 MEDGEN (St nonspecific skin NONSPECIFIC SKIN 12:00:00 AM J ohn's eruption ERUPTION T [facility], ) R10.10 Upper abdominal pain, UPPER ABDOMINAL PAIN, Problem MEDGEN (St unspecified UNSPECIFIED 12:00:00 AM [facility]'s EDT [facility], ) E66.3 Overweight OVERWEIGHT Problem 08/23/2019 MEDGEN (St 12:00:00 AM [facility]'s EDT [facility], ) G40.89 Other seizures OTHER SEIZURES Problem 08/23/2019 MEDGEN (St 12:00:00 AM [facility]'s T [facility], ) R21 Rash and other RASH AND OTHER Problem 08/23/2019 MEDGEN (St nonspecific skin NONSPECIFIC SKIN 12:00:00 AM J ohn's eruption ERUPTION T Medical, ) R10.10 Upper abdominal pain, UPPER ABDOMINAL PAIN, Problem MEDGEN (St unspecified UNSPECIFIED 12:00:00 AM [facility]'s EDT [facility], ) E66.3 Overweight OVERWEIGHT Problem 08/23/2019 MEDGEN (St 12:00:00 AM [facility]'s EDT [facility], ) G40.89 Other seizures OTHER SEIZURES Problem 08/23/2019 MEDGEN (St 12:00:00 AM [facility]'s EDT [facility], ) R21 Rash and other RASH AND OTHER Problem 08/23/2019 MEDGEN (St nonspecific skin NONSPECIFIC SKIN 12:00:00 AM J ohn's eruption ERUPTION T [facility], ) R10.10 Upper abdominal pain, UPPER ABDOMINAL PAIN, Problem MEDGEN (St unspecified UNSPECIFIED 12:00:00 AM Rai's EDT [facility], ) E66.3 Overweight OVERWEIGHT Problem 08/23/2019 MEDGEN (St 12:00:00 AM [facility]'s EDT [facility], ) G40.89 Other seizures OTHER SEIZURES Problem 08/23/2019 MEDGEN (St 12:00:00 AM [facility]'s [facility], ) R21 Rash and other RASH AND OTHER Problem 08/23/2019 MEDGEN (St nonspecific skin NONSPECIFIC SKIN 12:00:00 AM J ohn's eruption ERUPTION T [facility], ) R10.10 Upper abdominal pain, UPPER ABDOMINAL PAIN, Problem MEDGEN (St unspecified UNSPECIFIED 12:00:00 AM [facility]'s [facility], ) E66.3 Overweight OVERWEIGHT Problem 08/23/2019 MEDGEN (St 12:00:00 AM [facility]'s [facility], ) G40.89 Other seizures OTHER SEIZURES Problem 08/23/2019 MEDGEN (St 12:00:00 AM [facility]'s [facility], ) R21 Rash and other RASH AND OTHER Problem 08/23/2019 MEDGEN (St nonspecific skin NONSPECIFIC SKIN 12:00:00 AM J ohn's eruption ERUPTION T [facility], ) R10.10 Upper abdominal pain, UPPER ABDOMINAL PAIN, Problem MEDGEN (St unspecified UNSPECIFIED 12:00:00 AM [facility], ) E66.3 Overweight OVERWEIGHT Problem 08/23/2019 MEDGEN (St 12:00:00 AM [facility]'s [facility], ) G40.89 Other seizures OTHER SEIZURES Problem 08/23/2019 MEDGEN (St 12:00:00 AM [facility]'s [facility], ) R21 Rash and other RASH AND OTHER Problem 08/23/2019 MEDGEN (St nonspecific skin NONSPECIFIC SKIN 12:00:00 AM J ohn's eruption ERUPTION T [facility], ) R10.10 Upper abdominal pain, UPPER ABDOMINAL PAIN, Problem MEDGEN (St unspecified UNSPECIFIED 12:00:00 AM [facility]'s [facility], ) E66.3 Overweight OVERWEIGHT Problem 08/23/2019 MEDGEN (St 12:00:00 AM [facility]'s [facility], ) G40.89 Other seizures OTHER SEIZURES Problem 08/23/2019 MEDGEN (St 12:00:00 AM [facility]'s [facility], ) R21 Rash and other RASH AND OTHER Problem 08/23/2019 MEDGEN (St nonspecific skin NONSPECIFIC SKIN 12:00:00 AM J ohn's eruption ERUPTION T [facility], ) R10.10 Upper abdominal pain, UPPER ABDOMINAL PAIN, Problem MEDGEN (St unspecified UNSPECIFIED 12:00:00 AM [facility]) E66.3 Overweight OVERWEIGHT Problem 08/23/2019 MEDGEN (St 12:00:00 AM [facility]) G40.89 Other seizures OTHER SEIZURES Problem 08/23/2019 MEDGEN (St 12:00:00 AM [facility]) R21 Rash and other RASH AND OTHER Problem 08/23/2019 MEDGEN (St nonspecific skin NONSPECIFIC SKIN 12:00:00 AM J ohn's eruption ERUPTION [facility], ) R10.10 Upper abdominal pain, UPPER ABDOMINAL PAIN, Problem MEDGEN (St unspecified UNSPECIFIED 12:00:00 AM [facility]) E66.9 Obesity, unspecified OBESITY, UNSPECIFIED Problem 12/01 MEDGEN (St 12:00:00 AM [facility]) 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 12/01/2018 MEDGEN (St liver LIVER 12:00:00 AM [facility]) R16.0 Hepatomegaly, not HEPATOMEGALY, NOT Problem 12/01/2018 MEDGEN (St elsewhere classified ELSEWHERE CLASSIFIED 12:00 :00 AM [facility]) R14.0 Abdominal distension ABDOMINAL DISTENSION Problem 12/01 MEDGEN (St (gaseous) (GASEOUS) 12:00:00 AM [facility]) E66.9 Obesity, unspecified OBESITY, UNSPECIFIED Problem 12/01 MEDGEN (St 12:00:00 AM [facility]) 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 12/01/2018 MEDGEN (St liver LIVER 12:00:00 AM [facility]) R16.0 Hepatomegaly, not HEPATOMEGALY, NOT Problem 12/01/2018 MEDGEN (St elsewhere classified ELSEWHERE CLASSIFIED 12:00 :00 AM [facility]) R14.0 Abdominal distension ABDOMINAL DISTENSION Problem 12/01 MEDGEN (St (gaseous) (GASEOUS) 12:00:00 AM [facility]) E66.9 Obesity, unspecified OBESITY, UNSPECIFIED Problem 12/01 MEDGEN (St 12:00:00 AM [facility], ) 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 12/01/2018 MEDGEN (St liver LIVER 12:00:00 AM [facility], ) R16.0 Hepatomegaly, not HEPATOMEGALY, NOT Problem 12/01/2018 MEDGEN (St elsewhere classified ELSEWHERE CLASSIFIED 12:00 :00 AM [facility], ) R14.0 Abdominal distension ABDOMINAL DISTENSION Problem 12/01 MEDGEN (St (gaseous) (GASEOUS) 12:00:00 AM [facility], ) E66.9 Obesity, unspecified OBESITY, UNSPECIFIED Problem 12/01 MEDGEN (St 12:00:00 AM [facility], ) 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 12/01/2018 MEDGEN (St liver LIVER 12:00:00 AM [facility], ) R16.0 Hepatomegaly, not HEPATOMEGALY, NOT Problem 12/01/2018 MEDGEN (St elsewhere classified ELSEWHERE CLASSIFIED 12:00 :00 AM [facility], ) R14.0 Abdominal distension ABDOMINAL DISTENSION Problem 12/01 MEDGEN (St (gaseous) (GASEOUS) 12:00:00 AM [facility], ) E66.9 Obesity, unspecified OBESITY, UNSPECIFIED Problem 12/01 MEDGEN (St 12:00:00 AM [facility], ) 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 12/01/2018 MEDGEN (St liver LIVER 12:00:00 AM [facility], ) R16.0 Hepatomegaly, not HEPATOMEGALY, NOT Problem 12/01/2018 MEDGEN (St elsewhere classified ELSEWHERE CLASSIFIED 12:00 :00 AM [facility], ) R14.0 Abdominal distension ABDOMINAL DISTENSION Problem 12/01 MEDGEN (St (gaseous) (GASEOUS) 12:00:00 AM [facility], ) E66.9 Obesity, unspecified OBESITY, UNSPECIFIED Problem 12/01 MEDGEN (St 12:00:00 AM [facility], ) 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 12/01/2018 MEDGEN (St liver LIVER 12:00:00 AM [facility]) R16.0 Hepatomegaly, not HEPATOMEGALY, NOT Problem 12/01/2018 MEDGEN (St elsewhere classified ELSEWHERE CLASSIFIED 12:00 :00 AM [facility]) R14.0 Abdominal distension ABDOMINAL DISTENSION Problem 12/01 MEDGEN (St (gaseous) (GASEOUS) 12:00:00 AM [facility]) E66.9 Obesity, unspecified OBESITY, UNSPECIFIED Problem 12/01 MEDGEN (St 12:00:00 AM [facility]) 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 12/01/2018 MEDGEN (St liver LIVER 12:00:00 AM [facility]) R16.0 Hepatomegaly, not HEPATOMEGALY, NOT Problem 12/01/2018 MEDGEN (St elsewhere classified ELSEWHERE CLASSIFIED 12:00 :00 AM [facility], ) R14.0 Abdominal distension ABDOMINAL DISTENSION Problem 12/01 MEDGEN (St (gaseous) (GASEOUS) 12:00:00 AM [facility]) E66.9 Obesity, unspecified OBESITY, UNSPECIFIED Problem 12/01 MEDGEN (St 12:00:00 AM [facility]) 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 12/01/2018 MEDGEN (St liver LIVER 12:00:00 AM [facility]) R16.0 Hepatomegaly, not HEPATOMEGALY, NOT Problem 12/01/2018 MEDGEN (St elsewhere classified ELSEWHERE CLASSIFIED 12:00 :00 AM [facility]) R14.0 Abdominal distension ABDOMINAL DISTENSION Problem 12/01 MEDGEN (St (gaseous) (GASEOUS) 12:00:00 AM [facility]) R94.5 Abnormal results of ABNORMAL RESULTS OF Problem 019 MEDGEN (St liver function LIVER FUNCTION 12:00:00 AM [facility]) N43.3 Hydrocele, HYDROCELE, Problem 10/14/2018 MEDGEN (St unspecified UNSPECIFIED 12:00:00 AM [facility]) K30 Functional dyspepsia FUNCTIONAL DYSPEPSIA Problem 10/14 MEDGEN (St 12:00:00 AM [facility]'s [facility], ) R10.9 Unspecified abdominal UNSPECIFIED ABDOMINAL Problem 11/2018 MEDGEN (St pain PAIN 12:00:00 AM [facility], ) 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 (St liver LIVER 12:00:00 AM [facility], ) R94.5 Abnormal results of ABNORMAL RESULTS OF Problem 019 MEDGEN (St liver function LIVER FUNCTION 12:00:00 AM [facility], ) N43.3 Hydrocele, HYDROCELE, Problem 10/14/2018 MEDGEN (St unspecified UNSPECIFIED 12:00:00 AM [facility], ) K30 Functional dyspepsia FUNCTIONAL DYSPEPSIA Problem 10/14 MEDGEN (St 12:00:00 AM [facility], ) R10.9 Unspecified abdominal UNSPECIFIED ABDOMINAL Problem 11/2018 MEDGEN (St pain PAIN 12:00:00 AM [facility], ) 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 (St liver LIVER 12:00:00 AM [facility], ) R94.5 Abnormal results of ABNORMAL RESULTS OF Problem 019 MEDGEN (St liver function LIVER FUNCTION 12:00:00 AM [facility], ) N43.3 Hydrocele, HYDROCELE, Problem 10/14/2018 MEDGEN (St unspecified UNSPECIFIED 12:00:00 AM [facility]'s [facility], ) K30 Functional dyspepsia FUNCTIONAL DYSPEPSIA Problem 10/14 MEDGEN (St 12:00:00 AM [facility], ) R10.9 Unspecified abdominal UNSPECIFIED ABDOMINAL Problem 11/2018 MEDGEN (St pain PAIN 12:00:00 AM [facility], ) 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 (St liver LIVER 12:00:00 AM [facility], ) R94.5 Abnormal results of ABNORMAL RESULTS OF Problem 019 MEDGEN (St liver function LIVER FUNCTION 12:00:00 AM [facility], ) N43.3 Hydrocele, HYDROCELE, Problem 10/14/2018 MEDGEN (St unspecified UNSPECIFIED 12:00:00 AM [facility]) K30 Functional dyspepsia FUNCTIONAL DYSPEPSIA Problem 10/14 MEDGEN (St 12:00:00 AM [facility], ) R10.9 Unspecified abdominal UNSPECIFIED ABDOMINAL Problem 11/2018 MEDGEN (St pain PAIN 12:00:00 AM [facility]) 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 (St liver LIVER 12:00:00 AM [facility], ) R94.5 Abnormal results of ABNORMAL RESULTS OF Problem 019 MEDGEN (St liver function LIVER FUNCTION 12:00:00 AM [facility], ) N43.3 Hydrocele, HYDROCELE, Problem 10/14/2018 MEDGEN (St unspecified UNSPECIFIED 12:00:00 AM [facility], ) K30 Functional dyspepsia FUNCTIONAL DYSPEPSIA Problem 10/14 MEDGEN (St 12:00:00 AM [facility], ) R10.9 Unspecified abdominal UNSPECIFIED ABDOMINAL Problem 11/2018 MEDGEN (St pain PAIN 12:00:00 AM [facility], ) 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 (St liver LIVER 12:00:00 AM [facility], ) R94.5 Abnormal results of ABNORMAL RESULTS OF Problem 019 MEDGEN (St liver function LIVER FUNCTION 12:00:00 AM [facility], ) N43.3 Hydrocele, HYDROCELE, Problem 10/14/2018 MEDGEN (St unspecified UNSPECIFIED 12:00:00 AM [facility], ) K30 Functional dyspepsia FUNCTIONAL DYSPEPSIA Problem 10/14 MEDGEN (St 12:00:00 AM [facility], ) R10.9 Unspecified abdominal UNSPECIFIED ABDOMINAL Problem 11/2018 MED[facility] ([facility] pain PAIN 12:00:00 AM [facility], ) 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 (St liver LIVER 12:00:00 AM [facility], ) R94.5 Abnormal results of ABNORMAL RESULTS OF Problem 019 MEDGEN (St liver function LIVER FUNCTION 12:00:00 AM [facility]' s [facility], ) N43.3 Hydrocele, HYDROCELE, Problem 10/14/2018 MEDGEN (St unspecified UNSPECIFIED 12:00:00 AM [facility], ) K30 Functional dyspepsia FUNCTIONAL DYSPEPSIA Problem 10/14 MED[facility] (St 12:00:00 AM [facility], ) R10.9 Unspecified abdominal UNSPECIFIED ABDOMINAL Problem 11/2018 MED[facility] ([address] pain PAIN 12:00:00 AM [facility], ) 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 (St liver LIVER 12:00:00 AM [facility], ) Surgeries/Procedures Procedure Description Date Indications Data Source(s) Documentation of current 11/20/2019 MED GEN (Margie's medications (procedure) 12:00:00 AM EDT phillip, ) OFFICE CONSULTATION 11/20/2019 MEDGEN ( [facility]ie's NEW/ESTAB PATIENT 40 MIN 12:00:00 AM EDT Medical, ) OFFICE OUTPATIENT NEW 30 10/26/2019 MED GEN (Margie's MINUTES 12:00:00 AM EDT [facility], ) OFFICE OUTPATIENT NEW 10/26/2019 MED GEN ([facility] Documentation of current 10/25/2019 MED GEN (Margie's medications (procedure) 12:00:00 AM EDT anaical, ) Documentation of current 10/25/2019 MED GEN (Margie's medications (procedure) 12:00:00 AM EDT anaical, ) Documentation of current 10/25/2019 MED GEN ([facility] current 10/25/2019 MED GEN (Margie[facility] medications (procedure) [facility] Documentation of current 10/25/2019 MED GEN [...] MEDG EN ([facility]ie's 25 MINUTES [facility]:00:[facility] COLLECTION VENOUS BLOOD 10/25/2019 MEDG EN ([facility]ie's VENIPUNCTURE 12:00:00 AM [facility], ) Documentation of current 10/25/2019 MED GEN (Margie's medications (procedure) 12:00:00 AM EDT anaical, ) Documentation of current 10/25/2019 MED GEN (Margie's medications (procedure) 12:00:00 AM EDT anaical, ) Documentation of current 10/25/2019 MED GEN (Margie's medications (procedure) 12:00:00 AM EDT phillip, ) Documentation of current 10/25/2019 MED GEN [...] GEN ([facility] medications (procedure) [facility] OFF[facility] OUTPATIENT VISIT 10/25/2019 MEDG EN (Margie's 25 MINUTES 12:00:00 AM [facility] Medical, ) COLLECTION VENOUS BLOOD 10/25/2019 MEDG EN (Margie's VENIPUNCTURE 12:00:00 AM [facility], ) Documentation of current 10/25/2019 MED GEN (Margie's medications (procedure) 12:00:00 AM EDT anaical, ) Documentation of current 10/25/2019 MED GEN (Margie's medications (procedure) 12:00:00 AM EDT anaical, ) Documentation of current 10/25/2019 MED GEN ([facility]ie[facility] medications (procedure) [facility] Documentation of current 10/25/2019 MED GEN (Margie's medications (procedure) 12:00:00 AM EDT anaical, ) Documentation of current 10/25/2019 MED GEN (Margie's medications (procedure) 12:00:00 AM EDT anaical, ) Documentation of current 10/25/2019 MED GEN (Margie's medications (procedure) 12:00:00 AM EDT edical, ) OFFICE OUTPATIENT VISIT 10/25/2019 MEDG EN (Margie's 25 MINUTES 12:00:00 AM [facility], ) COLLECTION VENOUS BLOOD 10/25/2019 MEDG EN ([facility]ie's VENIPUNCTURE 12:00:00 AM [facility], ) Documentation of current 09/06/2019 MED GEN [...] MEDG EN (Margie's 25 MINUTES 12:00:00 AM [facility], ) OFFICE OUTPATIENT NEW 30 09/06/2019 MED GEN (Margie's MINUTES 12:00:00 AM [facility], ) ECG ROUTINE ECG W/LEAST 09/06/2019 MEDG EN (Margie's 12 LDS W/I&R 12:00:00 AM [facility], ) COLLECTION VENOUS BLOOD 09/06/2019 MEDG EN ([facility]'s VENIPUNCTURE 12:00:00 AM [facility], ) Documentation of current 09/06/2019 MED GEN [...] GEN (Margie's medications (procedure) 12:00:00 AM EDT [facility], ) OFFICE OUTPATIENT VISIT 09/06/2019 MEDG EN (Margie's 25 MINUTES 12:00:00 AM [facility], ) OFFICE OUTPATIENT NEW 09/06/2019 MED GEN (Margie's MINUTES 12:00:00 AM [facility], ) ECG ROUTINE ECG W/LEAST 09/06/2019 MEDG EN (Margie's 12 LDS W/I&R 12:00:00 AM [facility], ) COLLECTION VENOUS BLOOD 09/06/2019 MEDG EN ([facility]'s VENIPUNCTURE 12:00:00 AM [facility], ) Documentation of current 09/06/2019 MED GEN (Margie's medications (procedure) 12:00:00 AM EDT [facility], ) Documentation of current 09/06/2019 MED GEN (Margie's medications (procedure) 12:00:00 AM T [facility], ) Documentation of current 09/06/2019 MED GEN (Margie's medications (procedure) 12:00:00 AM T [facility], ) Documentation of current 09/06/2019 MED GEN (Margie's medications (procedure) 12:00:00 AM T [facility], ) Documentation of current 09/06/2019 MED GEN (Margie's medications (procedure) 12:00:00 AM T [facility], ) Documentation of current 09/06/2019 MED GEN (Margie's medications (procedure) 12:00:00 AM T [facility], ) OFFICE OUTPATIENT VISIT 09/06/2019 MEDG EN (Margie's 25 MINUTES 12:00:00 AM [facility], ) OFFICE OUTPATIENT NEW 09/06/2019 MED GEN (Margie's MINUTES 12:00:00 AM [facility], ) ECG ROUTINE ECG W/LEAST 09/06/2019 MEDG EN (Margie's 12 LDS W/I&R 12:00:00 AM [facility], ) COLLECTION VENOUS BLOOD 09/06/2019 MEDG EN ([facility]ie's VENIPUNCTURE 12:00:00 AM [facility], ) Documentation of current 09/06/2019 MED GEN (Margie's medications (procedure) 12:00:00 AM T [facility], ) Documentation of current 09/06/2019 MED GEN (Margie's medications (procedure) 12:00:00 AM EDT [facility]) Documentation of current 09/06/2019 MED GEN (Margie's medications (procedure) 12:00:00 AM T [facility], ) Documentation of current 09/06/2019 MED GEN (Margie's medications (procedure) 12:00:00 AM T [facility]) Documentation of current 09/06/2019 MED GEN (Margie's medications (procedure) 12:00:00 AM EDT [facility]) OFFICE OUTPATIENT VISIT 09/06/2019 MEDG EN (Margie's 25 MINUTES 12:00:00 AM [facility]) OFFICE OUTPATIENT NEW 09/06/2019 MED GEN (Margie's MINUTES 12:00:00 AM [facility]) ECG ROUTINE ECG W/LEAST 09/06/2019 MEDG EN (Margie's 12 LDS W/I&R 12:00:00 AM [facility]) COLLECTION VENOUS BLOOD 09/06/2019 MEDG EN (Margie's VENIPUNCTURE 12:00:00 AM [facility]) Documentation of current 09/06/2019 MED GEN (Margie's medications (procedure) 12:00:00 AM T [facility], ) Documentation of current 09/06/2019 MED GEN (Margie's medications (procedure) 12:00:00 AM T [facility]) Documentation of current 09/06/2019 MED GEN (Margie's medications (procedure) 12:00:00 AM T [facility], ) Documentation of current 09/06/2019 MED GEN (Margie's medications (procedure) 12:00:00 AM T [facility], ) Documentation of current 09/06/2019 MED GEN (Margie's medications (procedure) 12:00:00 AM EDT [facility], ) OFFICE OUTPATIENT VISIT 09/06/2019 MEDG EN (Margie's 25 MINUTES 12:00:00 AM [facility], ) OFFICE OUTPATIENT NEW 09/06/2019 MED GEN (Margie's MINUTES 12:00:00 AM [facility], ) ECG ROUTINE ECG W/LEAST 09/06/2019 MEDG EN (Margie's 12 LDS W/I&R 12:00:00 AM [facility], ) COLLECTION VENOUS BLOOD 09/06/2019 MEDG EN ([facility]ie's VENIPUNCTURE 12:00:00 AM [facility], ) Documentation of current 09/06/2019 MED GEN (Margie[facility] medications (procedure) [facility] Documentation of current 09/06/2019 MED GEN (Margie's medications (procedure) [facility]:00:[facility] OFFICE OUTPATIENT VISIT 09/06/2019 MEDG EN (Margie's 25 MINUTES 12:00:00 AM [facility], ) OFFICE OUTPATIENT NEW 30 09/06/2019 MED GEN (Margie's MINUTES 12:00:00 AM [facility], ) ECG ROUTINE ECG W/LEAST 09/06/2019 MEDG EN (Margie's 12 LDS W/I&R 12:00:00 AM [facility], ) COLLECTION VENOUS BLOOD 09/06/2019 MEDG EN (Margie's VENIPUNCTURE 12:00:00 AM [facility], ) Documentation of current 08/23/2019 MED GEN (Margie's medications (procedure) [facility]:00:[facility] Documentation of current 08/23/2019 MED GEN (Margie's medications (procedure) 12:00:[facility] Documentation of current 08/23/2019 MED GEN (Margie's medications (procedure) [facility]:00:[facility] Documentation of current 08/23/2019 MED GEN (Margie's medications (procedure) 12:00:00 AM EDT anaical, ) Documentation of current 08/23/2019 MED GEN (Margie's medications (procedure) 12:00:00 AM EDT edical, ) Documentation of current 08/23/2019 MED GEN (Margie's medications (procedure) 12:00:00 AM EDT edical, ) Documentation of current 08/23/2019 MED GEN (Margie's medications (procedure) 12:00:00 AM EDT edical, ) Documentation of current 08/23/2019 MED GEN (Margie's medications (procedure) 12:00:00 AM EDT [facility]) Documentation of current 08/23/2019 MED GEN (Margie's medications (procedure) 12:00:00 AM EDT [facility], [facility]) Documentation of current 08/23/2019 MED GEN ([facility]ie's medications (procedure) 12:00:00 AM EDT [facility] PC) Documentation of current 08/23/2019 MED GEN ([facility]ie's medications (procedure) 12:00:00 AM EDT [facility], PC) OFFICE OUTPATIENT VISIT 08/23/2019 MEDG EN (Margie's 25 MINUTES 12:00:00 AM [facility] Jeff, PC) Documentation of current 08/23/2019 MED GEN [...] MEDG EN (Margie's 25 MINUTES 12:00:00 AM [facility], PC) Documentation of current 08/23/2019 MED GEN (Margie's medications (procedure) 12:00:00 AM EDT [facility], PC) Documentation of current 08/23/2019 MED GEN (Margie's medications (procedure) 12:00:00 AM EDT [facility], PC) Documentation of current 08/23/2019 MED GEN (Margie's medications (procedure) 12:00:00 AM EDT [facility], PC) Documentation of current 08/23/2019 MED GEN (Marige's medications (procedure) 12:00:00 AM EDT anaical, PC) [...] MEDG EN (Margie's 25 MINUTES 12:00:00 AM PRADIP Gabriel) Documentation of current 08/23/2019 MED GEN (Margie's [...] GEN (Margie's medications (procedure) 12:00:00 AM EDT [facility], ) Documentation of current 08/23/2019 MED GEN (Margie's medications (procedure) [facility] Documentation of current 08/23/2019 MED GEN (Margie's medications (procedure) 12:00:00 AM EDT [facility], ) Documentation of current 08/23/2019 MED GEN (Margie's medications (procedure) 12:00:00 AM EDT [facility], ) OFFICE OUTPATIENT VISIT 08/23/2019 MEDG EN (Margie's 25 MINUTES 12:00:00 AM [facility], ) Documentation of current 12/01/2018 MED GEN (Margie's medications (procedure) 12:00:00 AM EDT [facility], ) Documentation of current 12/01/2018 MED GEN (Margie's medications (procedure) 12:00:00 AM EDT [facility], ) OFFICE OUTPATIENT VISIT 12/01/2018 MEDG EN (Margie's 15 MINUTES 12:00:00 AM [facility], ) COLLECTION VENOUS BLOOD 12/01/2018 MEDG EN (Margie's VENIPUNCTURE 12:00:00 AM [facility], ) Documentation of current 12/01/2018 MED GEN (Margie's medications (procedure) 12:00:00 AM EDT [facility], ) Documentation of current 12/01/2018 MED GEN (Margie's medications (procedure) 12:00:00 AM EDT [facility], ) OFFICE OUTPATIENT VISIT 12/01/2018 MEDG EN ([facility]'s 15 MINUTES [facility] COLLECTION VENOUS BLOOD 12/01/2018 MEDG EN (Margie's VENIPUNCTURE 12:00:00 AM [facility], ) Documentation of current 12/01/2018 MED GEN (Margie's medications (procedure) 12:00:00 AM EDT [facility], ) Documentation of current 12/01/2018 MED GEN (Margie's medications (procedure) 12:00:00 AM EDT [facility], ) OFFICE OUTPATIENT VISIT 12/01/2018 MEDG EN (Margie's 15 MINUTES 12:00:00 AM [facility], ) COLLECTION VENOUS BLOOD 12/01/2018 MEDG EN (Margie's VENIPUNCTURE 12:00:00 AM [facility], ) Documentation of current 12/01/2018 MED GEN (Margie's medications (procedure) 12:00:00 AM EDT [facility], ) Documentation of current 12/01/2018 MED GEN (Margie's medications (procedure) 12:00:00 AM [facility], ) OFFICE OUTPATIENT VISIT 12/01/2018 MEDG EN (Margie's 15 MINUTES 12:00:00 AM [facility], ) COLLECTION VENOUS BLOOD 12/01/2018 MEDG EN (Margie's VENIPUNCTURE 12:00:00 AM [facility], ) Documentation of current 12/01/2018 MED GEN (Margie's medications (procedure) 12:00:00 AM [facility], ) Documentation of current 12/01/2018 MED GEN (Margie's medications (procedure) 12:00:00 AM EDT [facility], ) OFFICE OUTPATIENT VISIT 12/01/2018 MEDG EN (Margie's 15 MINUTES 12:00:00 AM [facility], ) COLLECTION VENOUS BLOOD 12/01/2018 MEDG EN (Margie's VENIPUNCTURE 12:00:00 AM [facility], ) Documentation of current 12/01/2018 MED GEN (Margie's medications (procedure) 12:00:00 AM T [facility], ) Documentation of current 12/01/2018 MED GEN (Margie's medications (procedure) 12:00:00 AM EDT [facility], ) OFFICE OUTPATIENT VISIT 12/01/2018 MEDG EN (Margie's 15 MINUTES 12:00:00 AM [facility], ) COLLECTION VENOUS BLOOD 12/01/2018 MEDG EN (Margie's VENIPUNCTURE 12:00:00 AM [facility], ) Documentation of current 12/01/2018 MED GEN (Margie's medications (procedure) 12:00:00 AM T [facility], ) Documentation of current 12/01/2018 MED GEN (Margie's medications (procedure) 12:00:00 AM EDT [facility], ) OFFICE OUTPATIENT VISIT 12/01/2018 MEDG EN (Margie's 15 MINUTES 12:00:00 AM T Medical, ) COLLECTION VENOUS BLOOD 12/01/2018 MEDG EN ([facility] VENIPUNCTURE 12:00:00 [facility] Documentation of current 12/01/2018 MED GEN (Margie's medications (procedure) 12:00:00 AM EDT anaical, ) Documentation of current 12/01/2018 MED GEN (Margie's medications (procedure) 12:00:00 AM EDT anaical, ) OFFICE OUTPATIENT VISIT 12/01/2018 MEDG EN (Margie's 15 MINUTES 12:00:00 AM [facility], ) COLLECTION VENOUS BLOOD 12/01/2018 MEDG EN ([facility]'s VENIPUNCTURE 12:00:00 AM [facility], ) OFFICE OUTPATIENT VISIT 10/14/2018 MEDG EN (Margie's 15 MINUTES 12:00:00 AM [facility], ) Documentation of current 10/14/2018 MED GEN [...] MEDG EN (Margie's 15 MINUTES 12:00:00 [facility], ) Documentation of current 10/14/2018 MED [...] MEDG EN (Margie's 15 MINUTES 12:00:00 AM [facility], ) Documentation of current 10/14/2018 MED GEN [...] 15 MINUTES 12:00:00 AM EDT Medical, ) Documentation of current 10/14/2018 MED [...] (Margie's 15 MINUTES 12:00:00 AM ED Medical, PC) Documentation of current 10/14/2018 MED [...] GEN (Margie's medications (procedure) 12:00:00 AM EDT ph[facility]ip PC) Documentation of current 10/14/2018 MED GEN (Margie's medications (procedure) 12:00:00 AM EDT [facility], PC) OFFICE OUTPATIENT VISIT 10/14/2018 MEDG EN (Margie's 15 MINUTES 12:00:00 AM [facility] Jeff PC) Documentation of current 10/14/2018 MED GEN (Margie's medications (procedure) 12:00:00 AM EDT phillip, PC) Documentation of current 10/14/2018 MED GEN (Margie's medications (procedure) 12:00:00 AM EDT phillip PC) Documentation of current 10/14/2018 MED GEN (Margie's medications (procedure) 12:00:00 AM EDT [facility], PC) Documentation of current 10/14/2018 MED GEN (Margie's medications (procedure) 12:00:00 AM EDT [facility], PC) Documentation of current 10/14/2018 MED GEN (Margie's medications (procedure) 12:00:00 AM EDT ph[facility]ip, PC) Documentation of current 10/14/2018 MED GEN (Margie's medications (procedure) 12:00:00 AM EDT phillip, PC) Documentation of current 10/14/2018 MED GEN (Margie's medications (procedure) 12:00:00 AM EDT phillip, PC) Documentation of current 10/14/2018 MED GEN (Margie's medications (procedure) 12:00:00 AM EDT phillip PC) OFFICE OUTPATIENT VISIT 10/14/2018 MEDG EN (Margie's 15 MINUTES 12:00:00 AM BIPIN Aguilar PC) Documentation of current 10/14/2018 MED GEN (Margie's medications (procedure) 12:00:00 AM EDT ph[facility]ip, PC) Documentation of current 10/14/2018 MED GEN (Margie's medications (procedure) 12:00:00 AM EDT phillip, PC) Documentation of current 10/14/2018 MED GEN (Margie's medications (procedure) 12:00:00 AM EDT phillip, PC) Documentation of current 10/14/2018 MED GEN (Margie's medications (procedure) 12:00:00 AM EDT [facility], [facility]) Documentation of current 10/14/2018 MED GEN (Margie's medications (procedure) 12:00:00 AM EDT [facility], PC) Documentation of current 10/14/2018 MED GEN (Margie's medications (procedure) 12:00:00 AM EDT [facility], PC) Documentation of current 10/14/2018 MED GEN (Margie's medications (procedure) 12:00:00 AM EDT ph[facility]ip, PC) Documentation of current 10/14/2018 MED GEN (Margie's medications (procedure) 12:00:00 AM EDT [facility], PC) OFFICE OUTPATIENT VISIT 10/14/2018 MEDG EN (Margie's 15 MINUTES 12:00:00 AM EDT Medical, ) Results ID Date Data Source [id number] 12/02/2019 10:00:00 AM EDT [facility] Name Value Range Interpretation Description Data Sup porting Code Source(s) Document(s ) SARS [facility] coronavirus 2 RNA This lab was ordered by [facility] and reported by [facility]. ID Date Data Source [id number] 10/27/2019 12:00:00 AM EDT [facility] Name Value Range Interpretation Code Description Data Linda rce(s) Supporting Document(s ) ID Date Data Source [id number] 10/27/2019 12:00:00 AM EDT [facility] ([facility] Name Value Range Interpretation Code Description Data Linda rce(s) Supporting Document(s ) ANAM Normal (applies to MEDGEN (St Interpreta non-numeric results) [facility], tion:U ) ID Date Data Source [id number] 10/27/2019 12:00:00 AM EDT [facility] ([facility]) Name Value Range Interpretation Code Description Data Supporting Source(s) Document(s ) Intact PTH Normal (applies to MEDGEN (St non-numeric [facility] results) Medical, ) PTH, Intact 37 pg/mL Normal (applies to MEDGEN (S t non-numeric [facility] results) Medical, ) ID Date Data Source [id number] 10/27/2019 12:00:00 AM EDT [facility] ([facility], ) Name Value Range Interpretation Description Data Sup porting Code Source(s) Document(s ) Immunofixation Normal (applies MEDGEN (S t Result, Serum to non-numeric [facility] results) Medical, ) Immunoglobulin M, 55 mg/dL Normal (applies MEDGEN (St Qn, Serum to non-numeric [facility] results) Medical, ) Immunoglobulin G, 1537 Normal (applies MEDGEN (St Qn, Serum mg/dL to non-numeric [facility] results) Medical, ) Immunoglobulin A, 474 Above high normal MEDG EN (St Qn, Serum mg/dL [facility], ) ID Date Data Source [id number] 10/27/2019 12:00:00 AM EDT [facility] ([facility], ) Name Value Range Interpretation Description Data Sup porting Code Source(s) Document(s ) Cholesterol 124 Normal (applies MEDGEN (St [Mass/volume] in mg/dL to non-numeric [facility] Serum or Plasma results) Medical, ) Triglyceride 120 Normal (applies MEDGEN (St [Mass/volume] in mg/dL to non-numeric [facility] Serum or Plasma results) Medical, ) HDL Cholesterol 36 mg/dL Below low normal MED[facility] ([facility], ) VLDL Cholesterol 24 mg/dL Normal (applies MEDGEN (St Horacio to non-numeric [facility] results) Medical, ) LDL Cholesterol 64 mg/dL Normal (applies MEDGEN ( St Calc to non-numeric [facility] results) Medical, ) ID Date Data Source [id number] 10/27/2019 12:00:00 AM EDT [facility] ([facility], ) Name Value Range Interpretation Description Data Sup porting Code Source(s) Document(s ) Protein,To 11.7 mg/dL Normal (applies to MEDGEN (S t tomas,Urine non-numeric [facility] results) Medical, ) Albumin, U 37.9 % Normal (applies to MEDGEN (St non-numeric [facility] results) Medical, ) Alpha-1-Gl 1.4 % Normal (applies to MEDGEN (St obulin, U non-numeric [facility] results) Medical, ) Alpha-2-Gl 15.6 % Normal (applies to MEDGEN (St obulin, U non-numeric [facility] results) Medical, ) Beta 32.5 % Normal (applies to MEDGEN (St Globulin, non-numeric [facility] U results) Medical, ) Gamma 12.5 % Normal (applies to MEDGEN (St Globulin, non-numeric [facility] U results) Medical, ) Please Normal (applies to MEDGEN (St note: non-numeric [facility]'s results) Medical, ) M-Al, % Not Observed Normal (applies to MEDGEN (St non-numeric [facility] results) Medical, ) PDF . Normal (applies to MEDGEN (St non-numeric [facility] results) Medical, ) ID Date Data Source [id number] 10/27/2019 12:00:00 AM EDT [facility] ([facility] [...] to non-numeric [facility] 73 results) Medical, ) Creatinine 0.77 Normal (applies MEDGEN (St [Interpretation [...] [facility] in Blood results) Medical, ) Chloride 98 mmol/L Normal (applies MEDGEN (St [Moles/volume] to non-numeric [facility] in Serum or results) Medical, ) Plasma Sodium 138 Normal (applies MEDGEN (St [Moles/volume] mmol/L to non-numeric [facility] in Serum or results) Medical, ) Plasma Carbon dioxide, 24 mmol/L Normal (applies MEDGEN ( St total to non-numeric [facility]'s [Moles/volume] results) Medical, ) in Serum or Plasma Calcium 9.8 mg/dL Normal (applies MEDGEN (St [Moles/volume] to non-numeric [facility]ai[facility] in Urine results) Medical, ) collected for unspecified duration ID Date Data Source [id number] 10/27/2019 12:00:00 AM EDT [facility] ([facility], ) Name Value Range Interpretation Description Data Sup porting Code Source(s) Document(s ) Protein 7.4 g/dL Normal (applies MEDGEN (St [Mass/volume] in to non-numeric [facility]'s Serum or Plasma results) Medical, PC) Kcvjf-9-Gyolxymq 0.2 g/dL Normal (applies MEDGEN (St to non-numeric [facility]ai's results) Medical, PC) Microalbumin 3.8 g/dL Normal (applies MEDGEN (St [Mass/time] in to non-numeric [facility] Urine collected results) Medical, for unspecified PC) duration Beta globulin 1.3 g/dL Normal (applies MEDGEN (St [Mass/volume] in to non-numeric [facility] Urine by results) Medical, Electrophoresis PC) Yberr-6-Zoqrbvul 0.7 g/dL Normal (applies MEDGEN (St to non-numeric [facility] results) Medical, PC) Gamma globulin 1.5 g/dL Normal (applies MEDGEN (S t [Mass/volume] by to non-numeric [facility] Electrophoresis results) Medical, in Urine PC) collected for unspecified duration M-Al Not Normal (applies MEDGEN (St Observed to non-numeric [facility] results) Medical, PC) A/G Ratio 1.1 Normal (applies MEDGEN (St to non-numeric [facility]'s results) Medical, PC) Globulin, Total 3.6 g/dL Normal (applies MEDGEN ( St to non-numeric [facility] results) Medical, PC) PDF . Normal (applies MEDGEN (St to non-numeric [facility]ai's results) Medical, PC) Please note: Normal (applies MEDGEN (St to non-numeric [facility] results) Medical, PC) ID Date Data Source [id number] 10/27/2019 12:00:00 AM EDT [facility] ([facility]) Name Value Range Interpretation Code Description Data Linda rce(s) Supporting Document(s ) ID Date Data Source [id number] 10/27/2019 12:00:00 AM EDT [facility] ([facility]) Name Value Range Interpretation Code Description Data Linda rce(s) Supporting Document(s ) ANAM Normal (applies to [facility] (St Interpreta non-numeric results) [facility], tion:U PC) ID Date Data Source [id number] 10/27/2019 12:00:00 AM EDT [facility] ([facility] Name Value Range Interpretation Code Description Data Supporting Source(s) Document(s ) PTH, Intact 37 pg/mL Normal (applies to [facility] (S t non-numeric [facility] results) [facility], ) Intact PTH Normal (applies to [facility] (St non-numeric [facility] results) [facility], ) ID Date Data Source [id number] 10/27/2019 12:00:00 AM EDT [facility] ([facility]) Name Value Range Interpretation Description Data Sup porting Code Source(s) Document(s ) Immunofixation Normal (applies [facility] (S t Result, Serum to non-numeric [facility] results) [facility], ) Immunoglobulin G, 1537 Normal (applies [facility] (St Qn, Serum mg/dL to non-numeric [facility] results) [facility], ) Immunoglobulin A, 474 Above high normal MEDG EN (St Qn, Serum mg/dL [facility], ) Immunoglobulin M, 55 mg/dL Normal (applies [facility] (St Qn, Serum to non-numeric [facility] results) [facility], ) ID Date Data Source [id number] 10/27/2019 12:00:00 AM EDT [facility] ([facility]) Name Value Range Interpretation Description Data Sup porting Code Source(s) Document(s ) Triglyceride 120 Normal (applies [facility] (St [Mass/volume] in mg/dL to non-numeric [facility] Serum or Plasma results) [facility], ) Cholesterol 124 Normal (applies [facility] (St [Mass/volume] in mg/dL to non-numeric [facility] Serum or Plasma results) [facility], ) HDL Cholesterol 36 mg/dL Below low normal [facility] ([facility], ) LDL Cholesterol 64 mg/dL Normal (applies [facility] ( St Calc to non-numeric [facility] results) [facility], ) VLDL Cholesterol 24 mg/dL Normal (applies [facility] (St Horacio to non-numeric [facility] results) [facility], ) ID Date Data Source [id number] 10/27/2019 12:00:00 AM EDT [facility] ([facility]) Name Value Range Interpretation Description Data Sup porting Code Source(s) Document(s ) Protein,To 11.7 mg/dL Normal (applies to [facility] (S t tomas,Urine non-numeric [facility] results) [facility], ) Albumin, U 37.9 % Normal (applies to [facility] (St non-numeric [facility] results) [facility], ) Alpha-1-Gl 1.4 % Normal (applies to [facility] (St obulin, U non-numeric [facility] results) Medical, ) Beta 32.5 % Normal (applies to [facility] (St Globulin, non-numeric [facility] U results) Medical, ) Alpha-2-Gl 15.6 % Normal (applies to [...] results) Medical, ) ID Date Data Source [id number] 10/27/2019 12:00:00 AM EDT [facility] ([facility], ) Name Value Range Interpretation [...] results) Medical, PC) in Serum or Plasma Chloride 98 mmol/L Normal (applies [facility] (St [Moles/volume] to non-numeric [facility] in Serum or results) [facility], PC) Plasma Calcium 9.8 mg/dL Normal (applies [facility] (St [Moles/volume] to non-numeric [facility] in Urine results) [facility], PC) collected for unspecified duration ID Date Data Source [id number] 10/27/2019 12:00:00 AM EDT [facility] ([facility] Name Value Range Interpretation Description Data Sup porting Code Source(s) Document(s ) Protein 7.4 g/dL Normal (applies [facility] (St [Mass/volume] in to non-numeric [facility] Serum or Plasma results) [facility], PC) Microalbumin 3.8 g/dL Normal (applies [facility] (St [Mass/time] in to non-numeric [facility] Urine collected results) Medical, for unspecified PC) duration Hryga-4-Xnqwexau 0.2 g/dL Normal (applies [facility] (St to non-numeric [facility] results) Medical, PC) Nludo-5-Bwtdcwaf 0.7 g/dL Normal (applies [facility] (St to [...] results) Medical, ) ID Date Data Source [id number] 10/07/2019 10:25:00 AM EDT [facility] Name Value Range Interpretation Description Data Sup porting Code Source(s) Document(s ) SARS [facility] coronavirus 2 RNA This lab was ordered by [facility] and reported by [facility]. ID Date Data Source [id number] 09/06/2019 12:00:00 AM EDT [facility] ([facility] Name Value Range Interpretation Code Description Data Linda rce(s) Supporting Document(s ) SARS-CoV- Positive Abnormal (applies [facility] (St 2 to non-numeric [facility] Antibody, results) Medical, ) IgG ID Date Data Source [id number] 09/06/2019 12:00:00 AM EDT [facility] ([facility], ) Name Value Range Interpretation Code Description Data Linda rce(s) Supporting Document(s ) SARS-CoV- Negative Normal (applies to [facility] (St 2 non-numeric [facility] Antibody, results) Medical, ) IgM ID Date Data Source [id number] 09/06/2019 12:00:00 AM EDT [facility] ([facility] ) Name Value Range Interpretation Description Data Sup porting Code Source(s) Document(s ) INR 1.0 Normal (applies [facility] (St to non-numeric [facility] results) Medical, ) aPTT 34 sec Above high normal [facility] ([facility], ) Prothrombin 10.6 sec Normal (applies [facility] (St Time to non-numeric [facility] results) Medical, ) ID Date Data Source [id number] 09/06/2019 12:00:00 AM EDT [facility] ([facility] ) Name Value Range Interpretation Description Data Sup porting Code Source(s) Document(s ) Cholesterol 132 Normal (applies [facility] (St [Mass/volume] in mg/dL to non-numeric [facility] Serum or Plasma results) Medical, ) HDL Cholesterol 35 mg/dL Below low normal [facility] ([facility], ) Triglyceride 282 Above high normal [facility] (S t [Mass/volume] in mg/dL [facility] Serum or Plasma Medical, ) VLDL Cholesterol 56 mg/dL Above high normal MEDGE N ([facility], ) LDL Cholesterol 41 mg/dL Normal (applies [facility] ( St Calc to non-numeric [facility] results) Medical, ) ID Date Data Source [id number] 09/06/2019 12:00:00 AM EDT [facility] ( [facility], ) Name [...] to non-numeric [facility] .73 results) Medical, ) Sodium 139 Normal (applies [facility] (St [Moles/volume] in mmol/L to non-numeric [facility] Serum or Plasma results) Medical, ) BUN/Creatinine 13 Normal (applies [facility] (S t Ratio to non-numeric [facility] results) Medical, ) Potassium 4.5 Normal (applies [facility] (St [Mass/volume] in mmol/L to non-numeric [facility] Blood results) Medical, ) Chloride 97 Normal (applies [facility] (St [Moles/volume] in mmol/L to non-numeric [facility] Serum or Plasma results) Medical, ) Calcium 10.4 Above high [facility] (St [Moles/volume] in mg/dL normal [facility] Urine collected for Medical, unspecified PC) duration Carbon dioxide, 29 Normal (applies [facility] ( St total mmol/L to non-numeric [facility] [Moles/volume] in results) Medical, Serum or Plasma PC) Protein 8.2 g/dL Normal (applies [facility] (St [Mass/volume] in to non-numeric [facility] Serum or Plasma results) Medical, ) Microalbumin 4.8 g/dL Normal (applies [facility] (St [Mass/time] in to non-numeric [facility] Urine collected for results) Medical, unspecified PC) duration Globulin, Total 3.4 g/dL Normal (applies [facility] ( St to non-numeric [facility] results) Medical, ) Bilirubin.total [...] Serum or Plasma ID Date Data Source [id number] 09/06/2019 12:00:00 AM EDT [facility] ([facility] [...] [facility] (St g/dL to non-numeric [facility] results) [facility], ) Platelets 330 Normal (applies [facility]GEN (St [#/area] in x10E3/uL to non-numeric [facility] Blood by results) [facility], ) Microscopy high power field RDW 13.3 % Normal (applies [facility] (St to non-numeric [facility] results) [facility], ) Monocytes 10 % Normal (applies [facility] (St [#/volume] in to non-numeric [facility] Cord blood results) [facility], ) Lymphs 34 % Normal (applies [facility] (St to non-numeric [facility] results) [facility], ) Neutrophils [#] 53 % Normal (applies [facility] ( St in Body fluid by to non-numeric [facility] Manual count results) [facility], ) Eos 2 % Normal (applies [facility] (St to non-numeric [facility] results) [facility], ) Basos 1 % Normal (applies [facility] (St to non-numeric [facility] results) [facility], ) Lymphs 2.8 Normal (applies [facility] (St (Absolute) x10E3/uL to non-numeric [facility] results) [facility], ) Neutrophils 4.4 Normal (applies [facility] (St (Absolute) x10E3/uL to non-numeric [facility] results) [facility], ) Eos (Absolute) 0.1 Normal (applies [facility] (S t x10E3/uL to non-numeric [facility] results) [facility], ) Monocytes(Absolu 0.8 Normal (applies [facility] (St te) x10E3/uL to non-numeric [facility] results) [facility], ) Baso (Absolute) 0.1 Normal (applies [facility] ( St x10E3/uL to non-numeric [facility] results) [facility], ) Immature 0 % Normal (applies [facility] (St Granulocytes to non-numeric [facility] results) [facility], ) Immature Grans 0.0 Normal (applies [facility] (S t (Abs) x10E3/uL to non-numeric [facility] results) [facility], ) ID Date Data Source [id number] 09/06/2019 12:00:00 AM EDT [facility] ([facility], ) Name Value Range Interpretation Code Description Data Linda rce(s) Supporting Document(s ) SARS-CoV- Positive Abnormal (applies [facility] (St 2 to non-numeric [facility] Antibody, results) [facility], ) IgG ID Date Data Source [id number] 09/06/2019 12:00:00 AM EDT [facility] ([facility]) Name Value Range Interpretation Code Description Data Linda rce(s) Supporting Document(s ) SARS-CoV- Negative Normal (applies to [facility] (St 2 non-numeric [facility] Antibody, results) [facility], ) IgM ID Date Data Source [id number] 09/06/2019 12:00:00 AM EDT [facility] ([facility]) Name Value Range Interpretation Description Data Sup porting Code Source(s) Document(s ) Prothrombin 10.6 sec Normal (applies [facility] (St Time to non-numeric [facility] results) [facility], ) INR 1.0 Normal (applies [facility] (St to non-numeric [facility] results) [facility], ) aPTT 34 sec Above high normal [facility] ([facility]) ID Date Data Source [id number] 09/06/2019 12:00:00 AM EDT [facility] ([facility], ) Name Value Range Interpretation Description Data Sup porting Code Source(s) Document(s ) Cholesterol 132 Normal (applies [facility] (St [Mass/volume] in mg/dL to non-numeric [facility] Serum or Plasma results) [facility], ) Triglyceride 282 Above high normal [facility] (S t [Mass/volume] in mg/dL [facility] Serum or Plasma [facility], ) VLDL Cholesterol 56 mg/dL Above high normal MEDGE N ([facility]) HDL Cholesterol 35 mg/dL Below low normal [facility] ([facility]) LDL Cholesterol 41 mg/dL Normal (applies [facility] ( St Calc to non-numeric [facility] results) [facility], ) ID Date Data Source [id number] 09/06/2019 12:00:00 AM EDT [facility] ([facility]) Name Value Range Interpretation Description Data Sup porting Code Source(s) Document(s ) Glucose 105 Above high MEDGEN (St [Mass/volume] in mg/dL normal [facility] Urine collected for Medical, unspecified PC) duration Urea nitrogen 9 mg/dL Normal (applies [facility] (St [Mass/volume] in to non-numeric [facility] Serum or Plasma results) Medical, PC) Creatinine 0.70 Below low normal [facility] (St [Interpretation] in mg/dL [facility] Urine Medical, PC) eGFR If Africn Am 141 [...] activity/volume] in ) Serum or Plasma Aspartate 19 IU/L Normal (applies [facility]GEN (St aminotransferase to non-numeric [facility]'s [Enzymatic results) Medical, activity/volume] in ) Serum or Plasma ID Date Data Source [id number] 09/06/2019 12:00:00 AM EDT [facility] ([facility] [...] [Volume to non-numeric [facility] Fraction] of results) [facility], ) Blood by Automated count MCV 87 fL Normal (applies [facility] (St to non-numeric [facility]'s results) [facility], ) MCH 29.5 pg Normal (applies [facility] (St to non-numeric [facility]'s results) [facility], ) MCHC 33.8 Normal (applies [...] by to non-numeric [facility] Manual count results) [facility], ) Lymphs 34 % Normal (applies [facility] (St to non-numeric [facility] results) Medical, ) Monocytes 10 % Normal (applies [facility] (St [#/volume] in to non-numeric [facility] Cord blood results) [facility], ) Eos 2 % Normal [...] results) Medical, ) ID Date Data Source [id number] 09/06/2019 12:00:00 AM EDT [facility] ([facility], ) Name Value Range Interpretation Code Description Data Linda rce(s) Supporting Document(s ) SARS-CoV- Positive Abnormal (applies [facility] (St 2 to non-numeric [facility] Antibody, results) Medical, ) IgG ID Date Data Source [id number] 09/06/2019 12:00:00 AM EDT [facility] ([facility], ) Name Value Range Interpretation Code Description Data Linda rce(s) Supporting Document(s ) SARS-CoV- Negative Normal (applies to [facility] (St 2 non-numeric [facility]'s Antibody, results) [facility], ) IgM ID Date Data Source [id number] 09/06/2019 12:00:00 AM EDT [facility] ([facility], ) Name Value Range Interpretation Description Data Sup porting Code Source(s) Document(s ) INR 1.0 Normal (applies [facility] (St to non-numeric [facility] results) Medical, ) aPTT 34 sec Above high normal [facility] ([facility], ) Prothrombin 10.6 sec Normal (applies [facility]GEN (St Time to non-numeric [facility]ai's results) [facility], ) ID Date Data Source [id number] 09/06/2019 12:00:00 AM EDT [facility] ([facility], ) Name Value Range Interpretation Description Data Sup porting Code Source(s) Document(s ) Cholesterol 132 Normal (applies [facility] (St [Mass/volume] in mg/dL to non-numeric [facility] Serum or Plasma results) Medical, ) Triglyceride 282 Above high normal MEDGEN (S t [Mass/volume] in mg/dL [facility] Serum or Plasma Medical, ) LDL Cholesterol 41 mg/dL Normal (applies [facility]GEN ( St Calc to non-numeric [facility] results) Medical, ) VLDL Cholesterol 56 mg/dL Above high normal MEDGE N ([facility], ) HDL Cholesterol 35 mg/dL Below low normal [facility] ([facility], ) ID Date Data Source [id number] 09/06/2019 12:00:00 AM EDT [facility] ([facility], ) Name Value Range [...] to non-numeric [facility] Blood results) Medical, PC) Carbon dioxide, 29 Normal (applies MEDGEN ( St total mmol/L to non-numeric [facility]'s [Moles/volume] in results) Medical, Serum or Plasma PC) Calcium 10.4 Above high MED[facility] (St [Moles/volume] in mg/dL normal [facility] Urine collected for Medical, unspecified PC) duration Globulin, Total 3.4 g/dL Normal (applies [facility] ( St to non-numeric [facility]'s results) Medical, PC) Microalbumin 4.8 g/dL Normal (applies [facility] (St [Mass/time] in to non-numeric [facility] Urine collected for results) Medical, unspecified PC) duration Protein 8.2 g/dL Normal (applies [facility] (St [Mass/volume] in to non-numeric [facility] Serum or Plasma results) Medical, PC) Bilirubin.total <0.2 Normal (applies [...] Serum or Plasma ID Date Data Source [id number] 09/06/2019 12:00:00 AM EDT [facility] ([facility] ) Name Value Range Interpretation Description Data Sup porting Code Source(s) Document(s ) Leukocytes 8.2 Normal (applies [facility] (St [#/volume] in x10E3/uL to non-numeric [facility] Blood by results) Medical, ) Automated count Erythrocytes 4.91 Normal (applies [facility] (St [#/volume] in x10E6/uL to non-numeric [facility] Blood by results) [facility], ) Automated count Hemoglobin 14.5 Normal (applies [facility] (St [Mass/volume] in g/dL to non-numeric [facility] Blood results) [facility], ) MCH 29.5 pg Normal (applies [facility] (St to non-numeric [facility]'s results) [facility], ) Hematocrit 42.9 % Normal (applies [facility] (St [Volume to non-numeric [facility]'s Fraction] of results) [facility], ) Blood by Automated count MCV 87 fL Normal (applies [facility] (St to non-numeric [facility]ai's results) [facility], ) RDW 13.3 % Normal (applies [facility] (St to non-numeric [facility]ai's results) [facility], ) MCHC 33.8 Normal (applies [facility] (St g/dL to non-numeric [facility]'s results) [facility], ) Neutrophils [#] 53 % Normal (applies [facility] ( St in Body fluid by to non-numeric [facility] Manual count results) [facility], ) Platelets 330 Normal (applies [facility]GEN (St [#/area] in x10E3/uL to non-numeric [facility] Blood by results) [facility], ) Microscopy high power field Monocytes 10 % Normal (applies [facility]GEN (St [#/volume] in to non-numeric [facility]'s Cord blood results) [facility], ) Lymphs 34 % Normal (applies [facility] (St to non-numeric [facility]'s results) [facility], ) Eos 2 % Normal (applies [facility] (St to non-numeric [facility]ai's results) [facility], ) Neutrophils 4.4 Normal (applies [facility] (St (Absolute) x10E3/uL to non-numeric [facility]'s results) Medical, ) Basos 1 % Normal (applies [facility]GEN (St to non-numeric [facility]ai's results) [facility], ) Lymphs 2.8 Normal (applies [facility]GEN (St (Absolute) x10E3/uL to non-numeric [facility]'s results) [facility], ) Monocytes(Absolu 0.8 Normal (applies MEDGEN (St te) x10E3/uL to non-numeric [facility]ai's results) [facility], ) Baso (Absolute) 0.1 Normal (applies [facility] ( St x10E3/uL to non-numeric [facility]'s results) Medical, ) Eos (Absolute) 0.1 Normal (applies [facility]GEN (S t x10E3/uL to non-numeric [facility] results) Medical, ) Immature 0 % Normal (applies [facility] (St Granulocytes to non-numeric [facility]'s results) Medical, ) Immature Grans 0.0 Normal (applies MEDGEN (S t (Abs) x10E3/uL to non-numeric [facility] results) [facility], ) ID Date Data Source [id number] 09/06/2019 12:00:00 AM EDT [facility] ([facility]) Name Value Range Interpretation Code Description Data Linda rce(s) Supporting Document(s ) SARS-CoV- Positive Abnormal (applies [facility] (St 2 to non-numeric [facility]'s Antibody, results) [facility], ) IgG ID Date Data Source [id number] 09/06/2019 12:00:00 AM EDT [facility] ([facility]) Name Value Range Interpretation Code Description Data Linda rce(s) Supporting Document(s ) SARS-CoV- Negative Normal (applies to [facility] (St 2 non-numeric [facility]'s Antibody, results) [facility], ) IgM ID Date Data Source [id number] 09/06/2019 12:00:00 AM EDT [facility] ([facility]) Name Value Range Interpretation Description Data Sup porting Code Source(s) Document(s ) Prothrombin 10.6 sec Normal (applies [facility] (St Time to non-numeric [facility]'s results) Medical, ) INR 1.0 Normal (applies [facility] (St to non-numeric [facility]'s results) [facility], ) aPTT 34 sec Above high normal [facility] ([facility]) ID Date Data Source [id number] 09/06/2019 12:00:00 AM EDT [facility] ([facility]) Name Value Range Interpretation Description Data Sup porting Code Source(s) Document(s ) Cholesterol 132 Normal (applies [facility]GEN (St [Mass/volume] in mg/dL to non-numeric [facility] Serum or Plasma results) Medical, ) Triglyceride 282 Above high normal [facility]GEN (S t [Mass/volume] in mg/dL [facility] Serum or Plasma Medical, ) HDL Cholesterol 35 mg/dL Below low normal [facility] ([facility], ) VLDL Cholesterol 56 mg/dL Above high normal MEDGE N ([facility], ) LDL Cholesterol 41 mg/dL Normal (applies MEDGEN ( St Calc to non-numeric [facility]'s results) Medical, ) ID Date Data Source [id number] 09/06/2019 12:00:00 AM EDT [facility] ([facility], ) Name Value Range Interpretation Description Data Sup porting Code Source(s) Document(s ) Glucose 105 Above high MEDGEN (St [Mass/volume] in mg/dL normal [facility]'s Urine collected for Medical, unspecified PC) duration Creatinine 0.70 Below low normal [facility] (St [Interpretation] in mg/dL [facility] Urine Medical, ) Urea nitrogen 9 mg/dL Normal (applies [facility]GEN (St [Mass/volume] in to non-numeric [facility] Serum or Plasma results) Medical, ) eGFR If Africn Am 141 [...] to non-numeric [facility] Blood results) Medical, ) Calcium 10.4 Above high MEDGEN (St [Moles/volume] [...] St to non-numeric [facility]'s results) Medical, ) Protein 8.2 g/dL Normal (applies [facility]GEN (St [...] activity/volume] in PC) Serum or Plasma Alkaline 92 IU/L Normal (applies [facility]GEN (St phosphatase to non-numeric Rai's [Enzymatic results) Medical, activity/volume] in PC) Serum, Plasma or Blood Alanine 27 IU/L Normal (applies [facility]GEN (St aminotransferase to non-numeric Rai's [Enzymatic results) Medical, activity/volume] in PC) Serum or Plasma ID Date Data Source [id number] 09/06/2019 12:00:00 AM EDT [facility] ([facility] [...] results) [facility], ) Blood by Automated count MCHC 33.8 Normal (applies [facility]GEN (St g/dL to non-numeric [facility]'s results) Medical, ) MCH 29.5 pg Normal (applies [facility] (St to non-numeric [facility]ai's results) [facility], ) RDW 13.3 % Normal (applies [facility] (St to non-numeric [facility]ai's results) [facility], ) Platelets 330 Normal (applies [facility]GEN (St [#/area] in x10E3/uL to non-numeric [facility] Blood by results) [facility], ) Microscopy high power field Monocytes 10 % Normal (applies [facility]GEN (St [#/volume] in to non-numeric [facility]'s Cord blood results) [facility], ) Lymphs 34 % Normal (applies MEDGEN (St to non-numeric Rai's results) [facility], ) Neutrophils [#] 53 % Normal (applies MEDGEN ( St in Body fluid by to non-numeric [facility] Manual count results) [facility], ) Basos 1 % Normal (applies MEDGEN (St to non-numeric [facility]'s results) [facility], ) Eos 2 % Normal (applies MEDGEN (St to non-numeric Rai's results) [facility], ) Neutrophils 4.4 Normal (applies [facility]GEN (St (Absolute) x10E3/uL to non-numeric Rai's results) Medical, ) Lymphs 2.8 Normal (applies MEDGEN (St (Absolute) x10E3/uL to non-numeric Rai's results) [facility], ) Monocytes(Absolu 0.8 Normal (applies MEDGEN (St te) x10E3/uL to non-numeric Rai's results) Medical, ) Eos (Absolute) 0.1 Normal (applies [facility]GEN (S t x10E3/uL to non-numeric Rai's results) Medical, ) Baso (Absolute) 0.1 Normal (applies MEDGEN ( St x10E3/uL to non-numeric [facility]'s results) Medical, ) Immature 0 % Normal (applies [facility]GEN (St Granulocytes to non-numeric Rai's results) [facility], ) Immature Grans 0.0 Normal (applies MEDGEN (S t (Abs) x10E3/uL to non-numeric Rai's results) [facility], ) ID Date Data Source [id number] 06/28/2019 12:00:00 AM EDT [facility] Name Value Range Interpretation Code Description Data Linda rce(s) Supporting Document(s ) 2019-nCoV [place]SDOH RNA XXX NANI+probe- Imp This lab was ordered by [facility] and reported by [email or web address]. ID Date Data Source [id number] 12/01/2018 12:00:00 AM EDT [facility] ([facility] Name Value Range Interpretation Description Data Sup porting Code Source(s) Document(s ) No Lavender Test not Normal (applies to MEDGEN (S t Received performed non-numeric Rai's . results) Medical, PC) ID Date Data Source [id number] 12/01/2018 12:00:00 AM EDT [facility] ([facility]) Name Value Range Interpretation Code Description Data Linda rce(s) Supporting Document(s ) Lipase 25 U/L Normal (applies to MEDGEN (St non-numeric results) [facility] d[facility], PC) ID Date Data Source [id number] 12/01/2018 12:00:00 AM EDT [facility] ([facility]) Name Value Range Interpretation Description Data Sup porting Code Source(s) Document(s ) Hemoglobin Test not Normal (applies to MEDGEN (St A1c/Hemoglobin performed non-numeric Rai's .total in . results) Medical, PC) Blood ID Date Data Source [id number] 12/01/2018 12:00:00 AM EDT [facility] ([facility]) Name Value Range Interpretation Description [...] to non-numeric [facility]'s Serum or Plasma results) [facility]) Alanine 42 IU/L Normal (applies MEDGEN (St aminotransferase to non-numeric Rai's [Enzymatic results) Medical, activity/volume] in ) Serum or Plasma ID Date Data Source [id number] 12/01/2018 12:00:00 AM EDT [facility] ([facility]) Name Value Range Interpretation Description Data Sup porting Code Source(s) Document(s ) Cholesterol 132 Normal (applies [facility]GEN (St [Mass/volume] in mg/dL to non-numeric [facility]'s Serum or Plasma results) [facility]) Triglyceride 286 Above high normal [facility]GEN (S t [Mass/volume] in mg/dL [facility] Serum or Plasma [facility]) VLDL Cholesterol 57 mg/dL Above high normal [facility]GE N ([facility]) HDL Cholesterol 35 mg/dL Below low normal [facility] ([facility]) LDL Cholesterol 40 mg/dL Normal (applies MEDGEN ( St Calc to non-numeric Rai's results) [facility]) ID Date Data Source [id number] 12/01/2018 12:00:00 AM EDT [facility] ([facility], ) Name Value Range Interpretation Description Data Sup porting Code Source(s) Document(s ) Glucose 102 mg/dL Above high normal MEDGEN (St [Mass/volume] Rai's in Urine [facility]) collected for unspecified duration Creatinine 0.56 Below low normal MED[facility] (St [Interpretation mg/dL Rai's ] in Urine [facility]) eGFR If 135 Normal (applies MEDGEN (St NonAfricn Am mL/min/1. to non-numeric Rai's 73 results) [facility]) Urea nitrogen 5 mg/dL Below low normal MED[facility] (S t [Mass/volume] Rai's in Serum or [facility], ) Plasma eGFR If Africn 156 Normal (applies [facility]GEN (S t Am mL/min/1. to non-numeric Rai's 73 results) [facility], ) BUN/Creatinine 9 Normal (applies [facility] (S t Ratio to non-numeric Rai's results) Medical, ) Sodium 138 Normal (applies MEDGEN (St [Moles/volume] mmol/L to non-numeric Rai's in Serum or results) Medical, ) Plasma Potassium 4.6 Normal (applies MEDGEN (St [Mass/volume] mmol/L to non-numeric Rai's in Blood results) [facility], ) Chloride 99 mmol/L Normal (applies MEDGEN (St [Moles/volume] to non-numeric Rai's in Serum or results) [facility], ) Plasma Calcium 9.9 mg/dL Normal (applies MEDGEN (St [Moles/volume] to non-numeric Rai's in Urine results) [facility], ) collected for unspecified duration Carbon dioxide, 27 mmol/L Normal (applies MEDGEN ( St total to non-numeric Rai's [Moles/volume] results) [facility], ) in Serum or Plasma ID Date Data Source [id number] 12/01/2018 12:00:00 AM EDT [employer] ([facility], ) Name Value Range Interpretation Description Data Sup porting Code Source(s) Document(s ) No Lavender Test not Normal (applies to [facility] (S t Received performed non-numeric Rai's . results) [facility], ) ID Date Data Source [id number] 12/01/2018 12:00:00 AM EDT [employer] [employer] ([facility]) Name Value Range Interpretation Code Description Data Linda rce(s) Supporting Document(s ) Lipase 25 U/L Normal (applies to [facility] (St non-numeric results) Rai's [facility]) ID Date Data Source [id number] 12/01/2018 12:00:00 AM EDT [employer] ([facility]) Name Value Range Interpretation Description Data Sup porting Code Source(s) Document(s ) Hemoglobin Test not Normal (applies to [facility] (St A1c/Hemoglobin performed non-numeric Rai's .total in . results) [facility], ) Blood ID Date Data Source [id number] 12/01/2018 12:00:00 AM EDT [employer] ([facility]) Name Value Range Interpretation Description Data Sup porting Code Source(s) Document(s ) Protein 7.6 g/dL Normal (applies [facility] (St [Mass/volume] in to non-numeric Rai's Serum or Plasma results) Medical, ) Bilirubin.total 0.4 Normal (applies [facility] ( St [Mass/volume] in mg/dL to non-numeric Rai's Serum or Plasma results) [facility], ) Microalbumin 4.4 g/dL Normal (applies [facility] (St [Mass/time] in to non-numeric Rai's Urine collected for results) [facility], unspecified ) duration Bilirubin.conjugate 0.13 Normal (applies MEDG EN (St d [Mass/volume] in mg/dL to non-numeric Rai's Serum or Plasma results) [facility], ) Alkaline 105 IU/L Normal [...] Serum or Plasma ID Date Data Source [id number] 12/01/2018 12:00:00 AM EDT [facility] ([facility]) Name Value Range Interpretation Description Data Sup porting Code Source(s) Document(s ) Cholesterol 132 Normal (applies [facility] (St [Mass/volume] in mg/dL to non-numeric Rai's Serum or Plasma results) [facility], ) Triglyceride 286 Above high normal [facility] (S t [Mass/volume] in mg/dL Rai's Serum or Plasma [facility], ) HDL Cholesterol 35 mg/dL Below low normal [facility] ([facility], ) VLDL Cholesterol 57 mg/dL Above high normal MEDGE N ([facility]) LDL Cholesterol 40 mg/dL Normal (applies [facility] ( St Calc to non-numeric Rai's results) [facility], ) ID Date Data Source [id number] 12/01/2018 12:00:00 AM EDT [facility] ([facility]) Name Value Range Interpretation Description Data Sup porting Code Source(s) Document(s ) Glucose 102 mg/dL Above high normal [facility] (St [Mass/volume] Rai's in Urine [facility], ) collected for unspecified duration Creatinine 0.56 Below low normal [facility] (St [Interpretation mg/dL Rai's ] in Urine Medical, ) Urea nitrogen 5 mg/dL Below low normal [facility] (S t [Mass/volume] Rai's in Serum or [facility], ) Plasma eGFR If Africn [...] St total to non-numeric Rai's [Moles/volume] results) [facility], ) in Serum or Plasma Calcium 9.9 mg/dL Normal (applies [facility] (St [Moles/volume] to non-numeric Rai's in Urine results) [facility], ) collected for unspecified duration ID Date Data Source [id number] 12/01/2018 12:00:00 AM EDT [facility], ) Name Value Range Interpretation Description Data Sup porting Code Source(s) Document(s ) No Lavender Test not Normal (applies to [facility] (S t Received performed non-numeric Rai's . results) [facility], ) ID Date Data Source [id number] 12/01/2018 12:00:00 AM EDT [facility], ) Name Value Range Interpretation Code Description Data Linda rce(s) Supporting Document(s ) Lipase 25 U/L Normal (applies to [facility] (St non-numeric results) Rai's Me [facility]) ID Date Data Source [id number] 12/01/2018 12:00:00 AM EDT [facility] ([facility], ) Name Value Range Interpretation Description Data Sup porting Code Source(s) Document(s ) Hemoglobin Test not Normal (applies to [facility] (St A1c/Hemoglobin performed non-numeric Rai's .total in . results) [facility], [facility]) Blood ID Date Data Source [id number] 12/01/2018 12:00:00 AM EDT [facility] ([facility], ) Name Value Range Interpretation [...] Rai's Serum or Plasma results) [facility], [facility]) Alkaline 105 IU/L Normal (applies [facility] (St [...] Serum or Plasma ID Date Data Source [id number] 12/01/2018 12:00:00 AM EDT [facility] ([facility], ) Name Value Range Interpretation Description Data Sup porting Code Source(s) Document(s ) Cholesterol 132 Normal (applies [facility] (St [Mass/volume] in mg/dL to non-numeric Rai's Serum or Plasma results) Medical, ) Triglyceride 286 Above high normal [facility] (S t [Mass/volume] in mg/dL Rai's Serum or Plasma Medical, ) HDL Cholesterol 35 mg/dL Below low normal [facility] ([facility], ) VLDL Cholesterol 57 mg/dL Above high normal [facility] N ([facility], ) LDL Cholesterol 40 mg/dL Normal (applies [facility] ( St Calc to non-numeric Rai's results) [facility], ) ID Date Data Source [id number] 12/01/2018 12:00:00 AM EDT [facility] ([facility], ) Name Value Range Interpretation Description Data Sup porting Code Source(s) Document(s ) Glucose 102 mg/dL Above high normal [facility] (St [Mass/volume] Ria's in Urine [facility], ) collected for unspecified duration Urea nitrogen 5 mg/dL Below low normal [facility] (S t [Mass/volume] Rai's in Serum or [facility], ) Plasma Creatinine 0.56 Below low normal [facility] (St [Interpretation mg/dL Rai's ] in Urine [facility], ) eGFR If Africn 156 Normal (applies [facility] (S t Am mL/min/1. to non-numeric Rai's 73 results) [facility], ) eGFR If 135 Normal (applies [facility] (St NonAfricn Am mL/min/1. to non-numeric Rai's 73 results) [facility], ) Sodium 138 Normal (applies [facility] (St [Moles/volume] mmol/L to non-numeric Rai's in Serum or results) [facility], ) Plasma BUN/Creatinine 9 Normal (applies [facility] (S t Ratio to non-numeric Rai's results) [facility], ) Potassium 4.6 Normal (applies [facility] (St [Mass/volume] mmol/L to non-numeric Rai's in Blood results) [facility], ) Chloride 99 mmol/L Normal (applies [facility] (St [Moles/volume] to non-numeric Rai's in Serum or results) [facility], ) Plasma Calcium 9.9 mg/dL Normal (applies [facility] (St [Moles/volume] to non-numeric Rai's in Urine results) [facility], ) collected for unspecified duration Carbon dioxide, 27 mmol/L Normal (applies [facility] ( St total to non-numeric Rai's [Moles/volume] results) [facility], ) in Serum or Plasma ID Date Data Source [id number] 12/01/2018 12:00:00 AM EDT [facility] ([facility], ) Name Value Range Interpretation Description Data Sup porting Code Source(s) Document(s ) No Lavender Test not Normal (applies to [facility] (S t Received performed non-numeric Rai's . results) [facility], ) ID Date Data Source [id number] 12/01/2018 12:00:00 AM EDT [facility] ([facility], ) Name Value Range Interpretation Code Description Data Linda rce(s) Supporting Document(s ) Lipase 25 U/L Normal (applies to [facility] (St non-numeric results) Rai's Me dical, ) ID Date Data Source [id number] 12/01/2018 12:00:00 AM EDT [facility] ([facility], ) Name Value Range Interpretation Description Data Sup porting Code Source(s) Document(s ) Hemoglobin Test not Normal (applies to [facility] (St A1c/Hemoglobin performed non-numeric Rai's .total in . results) Medical, ) Blood ID Date Data Source [id number] 12/01/2018 12:00:00 AM EDT [facility] ([facility], ) Name Value Range Interpretation Description Data Sup porting Code Source(s) Document(s ) Protein 7.6 g/dL Normal (applies [facility] (St [Mass/volume] in to non-numeric Rai's Serum or Plasma results) Medical, ) Microalbumin 4.4 g/dL Normal (applies [facility] (St [Mass/time] in to non-numeric Rai's Urine collected for results) [facility], unspecified PC) duration Bilirubin.conjugate 0.13 [...] Serum or Plasma ID Date Data Source [id number] 12/01/2018 12:00:00 AM EDT [facility] ([facility]) Name Value Range Interpretation Description Data Sup porting Code Source(s) Document(s ) Triglyceride 286 Above high normal [facility] (S t [Mass/volume] in mg/dL Rai's Serum or Plasma [facility]) Cholesterol 132 Normal (applies [facility] (St [Mass/volume] in mg/dL to non-numeric Rai's Serum or Plasma results) [facility]) HDL Cholesterol 35 mg/dL Below low normal [facility] ([facility]) VLDL Cholesterol 57 mg/dL Above high normal [facility] N ([facility]) LDL Cholesterol 40 mg/dL Normal (applies [facility] ( St Calc to non-numeric Rai's results) [facility]) ID Date Data Source [id number] 12/01/2018 12:00:00 AM EDT [facility] ([facility]) Name Value Range Interpretation Description Data Sup porting Code Source(s) Document(s ) Glucose 102 mg/dL Above high normal [facility] (St [Mass/volume] Rai's in Urine [facility]) collected for unspecified duration Urea nitrogen 5 mg/dL Below low normal [facility] (S t [Mass/volume] Rai's in Serum or [facility], ) Plasma eGFR If 135 Normal (applies [facility] (St NonAfricn Am mL/min/1. to non-numeric Rai's 73 results) [facility]) Creatinine 0.56 Below low normal [facility] (St [Interpretation mg/dL Rai's ] in Urine [facility]) eGFR If Africn 156 Normal (applies [facility] (S t Am mL/min/1. to non-numeric Rai's 73 results) [facility]) BUN/Creatinine 9 Normal (applies [facility] (S t Ratio to non-numeric Rai's results) [facility]) Sodium 138 Normal (applies [facility] (St [Moles/volume] mmol/L to non-numeric Rai's in Serum or results) [facility]) Plasma Potassium 4.6 Normal (applies [facility] (St [...] for unspecified duration ID Date Data Source [id number] 12/01/2018 12:00:00 AM EDT [facility] [employer] ([facility], ) Name Value Range Interpretation Description Data Sup porting Code Source(s) Document(s ) No Lavender Test not Normal (applies to [facility] (S t Received performed non-numeric Rai's . results) Medical, ) ID Date Data Source [id number] 12/01/2018 12:00:00 AM EDT [facility] [employer] [employer] ([facility], ) Name Value Range Interpretation Code Description Data Linda rce(s) Supporting Document(s ) Lipase 25 U/L Normal (applies to [facility] (St non-numeric results) Rai[facility], ) ID Date Data Source [id number] 12/01/2018 12:00:00 AM EDT [facility] ([facility], ) Name Value Range Interpretation Description Data Sup porting Code Source(s) Document(s ) Hemoglobin Test not Normal (applies to [facility] (St A1c/Hemoglobin performed non-numeric Rai's .total in . results) Medical, ) Blood ID Date Data Source [id number] 12/01/2018 12:00:00 AM EDT [facility] [employer] [employer] ([facility], ) Name Value Range Interpretation Description Data Sup porting Code Source(s) Document(s ) Protein 7.6 g/dL Normal (applies [facility] (St [Mass/volume] in to non-numeric Rai's Serum or Plasma results) Medical, ) Microalbumin 4.4 g/dL Normal (applies [facility] (St [Mass/time] in to non-numeric Rai's Urine collected for results) [facility] duration Bilirubin.conjugate 0.13 Normal (applies MEDG EN (St d [Mass/volume] in mg/dL to non-numeric Rai's Serum or Plasma results) [facility], ) Bilirubin.total 0.4 Normal (applies [facility] ( St [Mass/volume] in mg/dL to non-numeric Rai's Serum or Plasma results) [facility], ) Aspartate 32 IU/L Normal [...] Plasma or Blood ID Date Data Source [id number] 12/01/2018 12:00:00 AM EDT [facility] ( [facility], ) Name Value Range Interpretation Description Data Sup porting Code Source(s) Document(s ) Cholesterol 132 Normal (applies [facility] (St [Mass/volume] in mg/dL to non-numeric Rai's Serum or Plasma results) [facility], ) Triglyceride 286 Above high normal [facility] (S t [Mass/volume] in mg/dL Rai's Serum or Plasma [facility], ) HDL Cholesterol 35 mg/dL Below low normal [facility] ([facility], ) VLDL Cholesterol 57 mg/dL Above high normal [facility] N ( [facility]) LDL Cholesterol 40 mg/dL Normal (applies [facility] ( St Calc to non-numeric Rai's results) [facility]) ID Date Data Source [id number] 12/01/2018 12:00:00 AM EDT [facility] ([facility], ) Name Value Range Interpretation Description Data Sup porting Code Source(s) Document(s ) Glucose 102 mg/dL Above high normal [facility] (St [Mass/volume] Rai's in Urine [facility], ) collected for unspecified duration Urea nitrogen 5 mg/dL Below low normal [facility] (S t [Mass/volume] Rai's in Serum or [facility], ) Plasma eGFR If 135 Normal (applies [facility] (St NonAfricn Am mL/min/1. to non-numeric Rai's 73 results) Medical, ) Creatinine 0.56 Below low normal [facility] (St [Interpretation mg/dL Rai's ] in Urine [facility], ) BUN/Creatinine 9 Normal (applies [facility] (S t Ratio to non-numeric Rai's results) Medical, ) eGFR If Africn 156 [...] non-numeric Rai's in Blood results) Medical, ) Carbon dioxide, 27 mmol/L Normal (applies [facility] ( St total to non-numeric Rai's [Moles/volume] results) Medical, ) in Serum or Plasma Calcium 9.9 mg/dL Normal (applies [facility] (St [Moles/volume] to non-numeric Rai's in Urine results) Medical, ) collected for unspecified duration ID Date Data Source [id number] 12/01/2018 12:00:00 AM EDT [facility] ([facility], ) Name Value Range Interpretation Description Data Sup porting Code Source(s) Document(s ) No Lavender Test not Normal (applies to [facility] (S t Received performed non-numeric Rai's . results) Medical, ) ID Date Data Source [id number] 12/01/2018 12:00:00 AM EDT [facility] ([facility], ) Name Value Range Interpretation Code Description Data Linda rce(s) Supporting Document(s ) Lipase 25 U/L Normal (applies to [facility] (St non-numeric results) Rai's Me [facility], ) ID Date Data Source [id number] 12/01/2018 12:00:00 AM EDT [facility] ([facility], ) Name Value Range Interpretation Description Data Sup porting Code Source(s) Document(s ) Hemoglobin Test not Normal (applies to [facility] (St A1c/Hemoglobin performed non-numeric Rai's .total in . results) [facility], ) Blood ID Date Data Source [id number] 12/01/2018 12:00:00 AM EDT [facility] ([facility]) Name Value Range Interpretation Description Data Sup porting Code Source(s) Document(s ) Protein 7.6 g/dL Normal (applies [facility] (St [Mass/volume] in to non-numeric Rai's Serum or Plasma results) [facility], ) Microalbumin 4.4 g/dL Normal (applies [facility] (St [Mass/time] in to non-numeric Rai's Urine collected for results) [facility], unspecified ) duration Alkaline 105 IU/L Normal (applies [facility] (St phosphatase to non-numeric Rai's [Enzymatic results) Medical, activity/volume] in ) Serum, Plasma or Blood Bilirubin.conjugate 0.13 Normal (applies MEDG EN (St d [Mass/volume] in mg/dL to non-numeric Rai's Serum or Plasma results) [facility], ) Bilirubin.total 0.4 Normal (applies [facility] ( St [Mass/volume] in mg/dL to non-numeric Rai's Serum or Plasma results) [facility], ) Aspartate 32 IU/L Normal (applies [facility] (St aminotransferase to non-numeric Rai's [Enzymatic results) Medical, activity/volume] in ) Serum or Plasma Alanine 42 IU/L Normal (applies [facility] (St aminotransferase to non-numeric Rai's [Enzymatic results) Medical, activity/volume] in ) Serum or Plasma ID Date Data Source [id number] 12/01/2018 12:00:00 AM EDT [facility] ([facility], ) Name Value Range Interpretation Description Data Sup porting Code Source(s) Document(s ) Triglyceride 286 Above high normal [facility] (S t [Mass/volume] in mg/dL Rai's Serum or Plasma [facility], ) Cholesterol 132 Normal (applies [facility] (St [Mass/volume] in mg/dL to non-numeric Rai's Serum or Plasma results) [facility], ) LDL Cholesterol 40 mg/dL Normal (applies [facility] ( St Calc to non-numeric Rai's results) [facility], ) HDL Cholesterol 35 mg/dL Below low normal [facility] ([facility], ) VLDL Cholesterol 57 mg/dL Above high normal [facility] N ([facility], ) ID Date Data Source [id number] 12/01/2018 12:00:00 AM EDT [facility] ([facility], ) Name Value Range Interpretation Description Data Sup porting Code Source(s) Document(s ) Glucose 102 mg/dL Above high normal [facility] (St [Mass/volume] Rai's in Urine [facility], ) collected for unspecified duration Urea nitrogen 5 mg/dL Below low normal [facility] (S t [Mass/volume] Rai's in Serum or [facility], ) Plasma eGFR If Africn 156 Normal (applies [facility] (S t Am mL/min/1. to non-numeric Rai's 73 results) [facility], ) Creatinine 0.56 Below low normal [facility] (St [Interpretation mg/dL Rai's ] in Urine [facility], ) eGFR If 135 Normal (applies [facility] (St NonAfricn Am mL/min/1. to non-numeric Rai's 73 results) [facility], ) Sodium 138 Normal (applies [facility] (St [Moles/volume] mmol/L to non-numeric Rai's in Serum or results) [facility], ) Plasma BUN/Creatinine 9 Normal (applies [facility] (S t Ratio to non-numeric Rai's results) [facility], ) Potassium 4.6 Normal (applies [facility] (St [Mass/volume] mmol/L to non-numeric Rai's in Blood results) [facility], ) Carbon dioxide, 27 mmol/L Normal (applies [facility] ( St total to non-numeric Rai's [Moles/volume] results) [facility], ) in Serum or Plasma Calcium 9.9 mg/dL Normal (applies [facility] (St [Moles/volume] to non-numeric Rai's in Urine results) [facility], ) collected for unspecified duration Chloride 99 mmol/L Normal (applies [facility] (St [Moles/volume] to non-numeric Rai's in Serum or results) [facility], ) Plasma ID Date Data Source [id number] 12/01/2018 12:00:00 AM EDT [facility] ([facility], ) Name Value Range Interpretation Description Data Sup porting Code Source(s) Document(s ) No Lavender Test not Normal (applies to [facility] (S t Received performed non-numeric Rai's . results) Medical, ) ID Date Data Source [id number] 12/01/2018 12:00:00 AM EDT [facility] ([facility], ) Name Value Range Interpretation Code Description Data Linda rce(s) Supporting Document(s ) Lipase 25 U/L Normal (applies to [facility] (St non-numeric results) Rai's Me dical, ) ID Date Data Source [id number] 12/01/2018 12:00:00 AM EDT [facility] ([facility], ) Name Value Range Interpretation Description Data Sup porting Code Source(s) Document(s ) Hemoglobin Test not Normal (applies to [facility] (St A1c/Hemoglobin performed non-numeric Rai's .total in . results) Medical, ) Blood ID Date Data Source [id number] 12/01/2018 12:00:00 AM EDT [facility] ([facility], ) Name Value Range [...] collected for results) Medical, unspecified [facility]) duration Alkaline 105 IU/L Normal [...] Serum or Plasma ID Date Data Source [id number] 12/01/2018 12:00:00 AM EDT [facility] ([facility], ) Name Value Range Interpretation Description Data Sup porting Code Source(s) Document(s ) Cholesterol 132 Normal (applies [facility] (St [Mass/volume] in mg/dL to non-numeric Rai's Serum or Plasma results) [facility], ) Triglyceride 286 Above high normal [facility] (S t [Mass/volume] in mg/dL Rai's Serum or Plasma [facility], ) HDL Cholesterol 35 mg/dL Below low normal [facility] ([facility], ) VLDL Cholesterol 57 mg/dL Above high normal [facility] N ([facility], ) LDL Cholesterol 40 mg/dL Normal (applies [facility] ( St Calc to non-numeric Rai's results) [facility], ) ID Date Data Source [id number] 12/01/2018 12:00:00 AM EDT [facility] ( [facility], ) Name Value Range Interpretation Description Data Sup porting Code Source(s) Document(s ) Glucose 102 mg/dL Above high normal [facility] (St [Mass/volume] Rai's in Urine [facility], ) collected for unspecified duration Urea nitrogen 5 mg/dL Below low normal [facility] (S t [Mass/volume] Rai's in Serum or [facility], ) Plasma Creatinine 0.56 Below low normal [facility] (St [Interpretation mg/dL Rai's ] in Urine [facility], ) eGFR If 135 Normal (applies [facility] (St NonAfricn Am mL/min/1. to non-numeric Rai's 73 results) Medical, ) eGFR If Africn 156 Normal (applies [facility] (S t Am mL/min/1. to non-numeric Rai's 73 results) [facility], ) BUN/Creatinine 9 Normal (applies [facility] (S t Ratio to non-numeric Rai's results) [facility], ) Sodium 138 Normal (applies [facility] (St [Moles/volume] mmol/L to non-numeric Rai's in Serum or results) Medical, ) Plasma Potassium 4.6 Normal (applies [facility] (St [Mass/volume] mmol/L to non-numeric Rai's in Blood results) [facility], ) Chloride 99 mmol/L Normal (applies [facility] (St [Moles/volume] to non-numeric Rai's in Serum or results) [facility], ) Plasma Carbon dioxide, 27 mmol/L Normal (applies [facility] ( St total to non-numeric Rai's [Moles/volume] results) [facility], ) in Serum or Plasma Calcium 9.9 mg/dL Normal (applies [facility] (St [Moles/volume] to non-numeric Rai's in Urine results) Medical, ) collected for unspecified duration ID Date Data Source [id number] 12/01/2018 12:00:00 AM EDT [employer] [employer] ([facility]) Name Value Range Interpretation Description Data Sup porting Code Source(s) Document(s ) No Lavender Test not Normal (applies to [facility] (S t Received performed non-numeric Rai's . results) [facility], ) ID Date Data Source [id number] 12/01/2018 12:00:00 AM EDT [facility] ([facility]) Name Value Range Interpretation Code Description Data Linda rce(s) Supporting Document(s ) Lipase 25 U/L Normal (applies to [facility] (St non-numeric results) Rai's Me [facility]) ID Date Data Source [id number] 12/01/2018 12:00:00 AM EDT [id number] ([facility]) Name Value Range Interpretation Description Data Sup porting Code Source(s) Document(s ) Hemoglobin Test not Normal (applies to MEDGEN (St A1c/Hemoglobin performed non-numeric Rai's .total in . results) [facility], ) Blood ID Date Data Source [id number] 12/01/2018 12:00:00 AM EDT [facility] ([facility]) Name Value Range Interpretation Description Data Sup porting Code Source(s) Document(s ) Protein 7.6 g/dL Normal (applies MED[facility] (St [Mass/volume] in to non-numeric Rai's Serum or Plasma results) Medical, ) Bilirubin.conjugate 0.13 Normal (applies MEDG EN (St d [Mass/volume] in mg/dL to non-numeric Rai's Serum or Plasma results) Medical, ) Bilirubin.total 0.4 Normal (applies MEDGEN ( St [Mass/volume] in mg/dL to non-numeric Rai's Serum or Plasma results) Medical, ) Microalbumin 4.4 g/dL Normal (applies [facility] (St [Mass/time] in to non-numeric Rai's Urine collected for results) Medical, unspecified ) duration Alanine 42 IU/L Normal (applies MEDGEN [...] Serum or Plasma ID Date Data Source [id number] 12/01/2018 12:00:00 AM EDT [facility] ([facility], ) Name Value Range Interpretation Description Data Sup porting Code Source(s) Document(s ) Triglyceride 286 Above high normal MEDGEN (S t [Mass/volume] in mg/dL Rai's Serum or Plasma [facility], ) Cholesterol 132 Normal (applies MEDGEN (St [Mass/volume] in mg/dL to non-numeric Rai's Serum or Plasma results) [facility], ) HDL Cholesterol 35 mg/dL Below low normal [facility] ([facility], ) VLDL Cholesterol 57 mg/dL Above high normal [facility] N ([facility], ) LDL Cholesterol 40 mg/dL Normal (applies MEDGEN ( St Calc to non-numeric Rai's results) [facility], ) ID Date Data Source [id number] 12/01/2018 12:00:00 AM EDT [facility] ([facility], ) Name Value Range Interpretation Description Data Sup porting Code Source(s) Document(s ) Urea nitrogen 5 mg/dL Below low normal [facility] (S t [Mass/volume] Rai's in Serum or Medical, ) Plasma Glucose 102 mg/dL Above high normal MED[facility] (St [Mass/volume] Rai's in Urine [facility], ) collected for unspecified duration eGFR If 135 Normal (applies MEDGEN (St NonAfricn Am mL/min/1. to non-numeric Rai's 73 results) [facility], ) Creatinine 0.56 Below low normal [facility] (St [Interpretation mg/dL Rai's ] in Urine [facility], ) BUN/Creatinine 9 Normal (applies [facility] (S t Ratio to non-numeric Rai's results) Medical, ) Sodium 138 Normal (applies MEDGEN (St [Moles/volume] mmol/L to non-numeric Rai's in Serum or results) Medical, ) Plasma eGFR If Africn 156 Normal (applies [facility]GEN (S t Am mL/min/1. to non-numeric Rai's 73 results) Medical, ) Potassium 4.6 Normal (applies [facility] (St [Mass/volume] mmol/L to non-numeric Rai's in Blood results) Medical, ) Chloride 99 mmol/L Normal (applies [facility] (St [Moles/volume] to non-numeric Rai's in Serum or results) Medical, ) Plasma Carbon dioxide, 27 mmol/L Normal (applies [facility] ( St total to non-numeric Rai's [Moles/volume] results) [facility], ) in Serum or Plasma Calcium 9.9 mg/dL Normal (applies [facility] (St [Moles/volume] to non-numeric Rai's in Urine results) [facility], ) collected for unspecified duration ID Date Data Source [id number] 10/14/2018 12:00:00 AM EDT [facility] ([facility], ) Name Value Range Interpretation Description Data Sup porting Code Source(s) Document(s ) One Specimen Normal (applies to MED[facility] ( St Identifier non-numeric Rai's results) [facility], ) ID Date Data Source [id number] 10/14/2018 12:00:00 AM EDT [facility] ([facility], ) Name Value Range Interpretation Description Data Sup porting Code Source(s) Document(s ) Gamma glutamyl 34 IU/L Normal (applies to MED[facility] (St transferase non-numeric Rai's [Enzymatic results) [facility], ) activity/volume ] in Serum or Plasma ID Date Data Source [id number] 10/14/2018 12:00:00 AM EDT [facility] ([facility], ) Name Value Range Interpretation Description Data Sup porting Code Source(s) Document(s ) Hepatitis A Negative Normal (applies [facility] (St virus IgM Ab to non-numeric Rai's [Presence] in results) [facility], ) Serum or Plasma by Immunoassay HBsAg Screen Negative Normal (applies [facility] (St to non-numeric Rai's results) [facility], ) Hepatitis B Negative Normal (applies [facility] (St virus core IgM to non-numeric Rai's Ab [Presence] results) Medical, ) in Serum or Plasma by Immunoassay Hep C Virus Ab 0.1 s/co Normal (applies [facility] (S t ratio to non-numeric Rai's results) Medical, ) ID Date Data Source [id number] 10/14/2018 12:00:00 AM EDT [facility] ([facility] [employer], ) Name Value Range Interpretation Description Data Sup porting Code Source(s) Document(s ) One Specimen Normal (applies to [facility] ( St Identifier non-numeric Rai's results) [facility], ) ID Date Data Source [id number] 10/14/2018 12:00:00 AM EDT [facility] ([employer] [facility], ) Name Value Range Interpretation Description Data Sup porting Code Source(s) Document(s ) Gamma glutamyl 34 IU/L Normal (applies to [facility] (St transferase non-numeric Rai's [Enzymatic results) Medical, ) activity/volume ] in Serum or Plasma ID Date Data Source [id number] 10/14/2018 12:00:00 AM EDT [facility] ([facility] [facility] [employer], ) Name Value Range Interpretation Description Data Sup porting Code Source(s) Document(s ) HBsAg Screen Negative Normal (applies [facility] (St to non-numeric [facility]'s results) Medical, ) Hepatitis A Negative Normal (applies [facility] (St virus IgM Ab to non-numeric Rai's [Presence] in results) Medical, ) Serum or Plasma by Immunoassay Hep C Virus Ab 0.1 s/co Normal (applies [facility] (S t ratio to non-numeric [facility]ai's results) Medical, ) Hepatitis B Negative Normal (applies [facility] (St virus core IgM to non-numeric Rai's Ab [Presence] results) Medical, ) in Serum or Plasma by Immunoassay ID Date Data Source [id number] 10/14/2018 12:00:00 AM EDT [employer] ([facility] [employer] [facility], ) Name Value Range Interpretation Description Data Sup porting Code Source(s) Document(s ) One Specimen Normal (applies to [facility] ( St Identifier non-numeric Rai's results) Medical, ) ID Date Data Source [id number] 10/14/2018 12:00:00 AM EDT [employer] ([employer] [facility], ) Name Value Range Interpretation Description Data Sup porting Code Source(s) Document(s ) Gamma glutamyl 34 IU/L Normal (applies to [facility] (St transferase non-numeric Rai's [Enzymatic results) [facility], ) activity/volume ] in Serum or Plasma ID Date Data Source [id number] 10/14/2018 12:00:00 AM EDT [facility] ([facility], ) Name Value Range Interpretation Description Data Sup porting Code Source(s) Document(s ) HBsAg Screen Negative Normal (applies [facility] (St to non-numeric Rai's results) [facility], ) Hepatitis A Negative Normal (applies [facility] (St virus IgM Ab to non-numeric Rai's [Presence] in results) [facility], ) Serum or Plasma by Immunoassay Hepatitis B Negative Normal (applies [facility] (St virus core IgM to non-numeric Rai's Ab [Presence] results) [facility], ) in Serum or Plasma by Immunoassay Hep C Virus Ab 0.1 s/co Normal (applies [facility] (S t ratio to non-numeric Rai's results) [facility], ) ID Date Data Source [id number] 10/14/2018 12:00:00 AM EDT [facility] ([facility], ) Name Value Range Interpretation Code Description Data Linda rce(s) Supporting Document(s ) ID Date Data Source [id number] 10/14/2018 12:00:00 AM EDT [facility] ([facility], ) Name Value Range Interpretation Code Description Data Linda rce(s) Supporting Document(s ) GGT 34 IU/L Normal (applies to [facility] (St non-numeric results) [facility], ) ID Date Data Source [id number] 10/14/2018 12:00:00 AM EDT [facility] ([facility], ) Name Value Range Interpretation Description Data Sup porting Code Source(s) Document(s ) Hepatitis A Negative Normal (applies [facility] (St virus IgM Ab to non-numeric Rai's [Presence] in results) [facility], ) Serum or Plasma by Immunoassay HBsAg Screen Negative Normal (applies [facility] (St to non-numeric Rai's results) [facility], ) Hep C Virus Ab 0.1 s/co Normal (applies [facility] (S t ratio to non-numeric Rai's results) [facility], ) Hepatitis B Negative Normal (applies [facility] (St virus core IgM to non-numeric Rai's Ab [Presence] results) Medical, ) in Serum or Plasma by Immunoassay ID Date Data Source [id number] 10/14/2018 12:00:00 AM EDT [facility] Name Value Range Interpretation Code Description Data Linda rce(s) Supporting Document(s ) ID Date Data Source [id number] 10/14/2018 12:00:00 AM EDT [facility] Name Value Range Interpretation Code Description Data Linda rce(s) Supporting Document(s ) GGT 34 IU/L Normal (applies to [facility] (St non-numeric results) [facility]) ID Date Data Source [id number] 10/14/2018 12:00:00 AM EDT [facility] ([facility] [...] IgM to non-numeric Rai's Ab [Presence] results) [facility], ) in Serum or Plasma by Immunoassay Hep C Virus Ab 0.1 s/co Normal (applies [facility] (S t ratio to non-numeric Rai's results) Medical, ) ID Date Data Source [id number] 10/14/2018 12:00:00 AM EDT [facility] ([facility] Name Value Range Interpretation Code Description Data Linda rce(s) Supporting Document(s ) ID Date Data Source [id number] 10/14/2018 12:00:00 AM EDT [facility] ([facility] Name Value Range Interpretation Code Description Data Linda rce(s) Supporting Document(s ) GGT 34 IU/L Normal (applies to [facility] (St non-numeric results) [facility]) ID Date Data Source [id number] 10/14/2018 12:00:00 AM EDT [facility] ([facility] Name Value Range Interpretation Description Data Sup porting Code Source(s) Document(s ) Hepatitis A Negative Normal (applies [facility] (St virus IgM Ab to non-numeric Rai's [Presence] in results) [facility], ) Serum or Plasma by Immunoassay HBsAg Screen Negative Normal (applies [facility] (St to non-numeric Rai's results) [facility], ) Hepatitis B Negative Normal (applies [facility] (St virus core IgM to non-numeric Rai's Ab [Presence] results) [facility], ) in Serum or Plasma by Immunoassay Hep C Virus Ab 0.1 s/co Normal (applies [facility] (S t ratio to non-numeric Rai's results) [facility], ) ID Date Data Source [id number] 10/14/2018 12:00:00 AM EDT [facility] ([facility], ) Name Value Range Interpretation Code Description Data Linda rce(s) Supporting Document(s ) ID Date Data Source [id number] 10/14/2018 12:00:00 AM EDT [facility] ([facility]) Name Value Range Interpretation Code Description Data Linda rce(s) Supporting Document(s ) GGT 34 IU/L Normal (applies to [facility] (St non-numeric results) [facility]) ID Date Data Source [id number] 10/14/2018 12:00:00 AM EDT [facility] ([facility], ) Name Value Range Interpretation Description Data Sup porting Code Source(s) Document(s ) Hepatitis A Negative Normal (applies [facility] (St virus IgM Ab to non-numeric Rai's [Presence] in results) [facility], ) Serum or Plasma by Immunoassay Hepatitis B Negative Normal (applies [facility] (St virus core IgM to non-numeric Rai's Ab [Presence] results) [facility], ) in Serum or Plasma by Immunoassay HBsAg Screen Negative Normal (applies [facility] (St to non-numeric Rai's results) [facility], ) Hep C Virus Ab 0.1 s/co Normal (applies [facility] (S t ratio to non-numeric Rai's results) [facility], ) ID Date Data Source [id number] 10/14/2018 12:00:00 AM EDT [facility] ([facility]) Name Value Range Interpretation Code Description Data Linda rce(s) Supporting Document(s ) ID Date Data Source [id number] 10/14/2018 12:00:00 AM EDT [facility] ([facility] Name Value Range Interpretation Code Description Data Linda rce(s) Supporting Document(s ) GGT 34 IU/L Normal (applies to [facility] (St non-numeric results) [facility]) ID Date Data Source [id number] 10/14/2018 12:00:00 AM EDT [facility] ([facility] [...] to non-numeric Rai's Ab [Presence] results) Medical, ) in Serum or Plasma by Immunoassay Hep C Virus Ab 0.1 s/co Normal (applies [facility] (S t ratio to non-numeric Rai's results) Medical, ) Procedure Social History Code Duration Value Status Description Data Source(s ) Smoking 11/20/2019 denies tobacco, completed denies tobacco, [facility] ([facility] 12:00:00 AM EDT alcohol, drugs alcohol, drugs edical, ) Smoking 11/20/2019 Unknown if ever completed Unknown if ever [facility] ([facility] 12:00:00 AM EDT [facility]) Smoking 11/07/2019 denies tobacco, completed denies tobacco, [facility] ([facility] 12:00:00 AM EDT alcohol, drugs alcohol, drugs edical, ) Smoking 11/07/2019 Unknown if ever completed Unknown if ever [facility] ([facility] 12:00:00 AM EDT smoked smoked [facility], [facility]) Smoking 10/25/2019 denies tobacco, completed denies tobacco, [facility] ([facility] 12:00:00 AM EDT alcohol, drugs alcohol, drugs edical, ) Smoking 10/25/2019 Unknown if ever completed Unknown if ever [facility] ([facility] 12:00:00 AM EDT smoked smoked Medical, ) Smoking 09/12/2019 denies tobacco, completed denies tobacco, [facility] ([facility] 12:00:00 AM EDT alcohol, drugs alcohol, drugs M edical, PC) Smoking 09/12/2019 Unknown if ever completed Unknown if ever [facility] ([facility] 12:00:00 AM EDT smoked smoked Medical, [facility]) Smoking 09/06/2019 denies tobacco, completed denies tobacco, [facility] ([facility] 12:00:00 AM EDT alcohol, drugs alcohol, drugs M edical, PC) Smoking 09/06/2019 Unknown if ever completed Unknown if ever [facility] ([facility] 12:00:00 AM EDT smoked smoked Medical, [facility]) Smoking 09/06/2019 denies tobacco, completed denies tobacco, [facility] ([facility] 12:00:00 AM EDT alcohol, drugs alcohol, drugs M edical, PC) Smoking 09/06/2019 Unknown if ever completed Unknown if ever [facility] ([facility] 12:00:00 AM EDT smoked smoked Medical, [facility]) Smoking 09/05/2019 denies tobacco, completed denies tobacco, [facility] ([facility] 12:00:00 AM EDT alcohol, drugs alcohol, drugs M edical, PC) Smoking 09/05/2019 Unknown if ever completed Unknown if ever [facility] ([facility] 12:00:00 AM EDT smoked smoked Medical, PC) Smoking 08/29/2019 denies tobacco, completed denies tobacco, [facility] ([facility] 12:00:00 AM EDT alcohol, drugs alcohol, drugs M edical, PC) Smoking 08/29/2019 Unknown if ever completed Unknown if ever [facility] ([facility] 12:00:00 AM EDT smoked smoked Medical, [facility]) Vital Signs ID Date Data Source [id number] Name Value Range Interpretation Code Description Data Source(s) Heart rate 70 /min 70 /min [facility] ([facility] , ) Inhaled oxygen 98 % 98 % [facility] ([facility], ) Body mass index 33.7 kg/m2 33.7 kg/m2 MED[facility] (S t (BMI) [Ratio] [facility], ) Diastolic blood 82 mm[Hg] 82 mm[Hg] [facility] (S t pressure [facility]) Systolic blood 122 mm[Hg] 122 mm[Hg] [facility] ([facility] , ) Body weight 209 lb 209 lb [facility] ([facility]) Body height 66 in 66 in [facility] ([facility]) Heart rate 200 /min 200 /min [facility] ([facility]) Respiratory rate 12 /min 12 /min [facility] ( [facility]) Inhaled oxygen 98 % 98 % [facility] ([facility], ) Body mass index 33.6 kg/m2 33.6 kg/m2 MEDGEN (S t (BMI) [Ratio] [facility], ) Diastolic blood 64 mm[Hg] 64 mm[Hg] MEDGEN (S t pressure [facility] , ) Systolic blood 130 mm[Hg] 130 mm[Hg] [facility] ([facility] , ) Body weight 208 lb 208 lb [facility] ([facility]) Body height 66 in 66 in [facility] ([facility]) Heart rate 200 /min 200 /min [facility] ([facility]) Respiratory rate 12 /min 12 /min [facility] ( [facility]) Inhaled oxygen 98 % 98 % [facility] ([facility], ) Body mass index 33.6 kg/m2 33.6 kg/m2 MEDGEN (S t (BMI) [Ratio] [facility], ) Diastolic blood 64 mm[Hg] 64 mm[Hg] MEDGEN (S t pressure [facility]) Systolic blood 130 mm[Hg] 130 mm[Hg] [facility] ([facility]) Body weight 208 lb 208 lb [facility] ([facility]) Body height 66 in 66 in [facility] ([facility]) Heart rate 64 /min 64 /min [facility] ([facility]) Respiratory rate 12 /min 12 /min [facility] ( [facility]) Body mass index 33.6 kg/m2 33.6 kg/m2 MEDGEN (S t (BMI) [Ratio] [facility], ) Diastolic blood 78 mm[Hg] 78 mm[Hg] MEDGEN (S t pressure [facility]) Systolic blood 120 mm[Hg] 120 mm[Hg] [facility] ([facility]) Body weight 208 lb 208 lb [facility] ([facility]) Body height 66 in 66 in [facility] ([facility]) Heart rate 64 /min 64 /min [facility] ([facility]) Respiratory rate 12 /min 12 /min [facility] ( [facility]) Body mass index 33.6 kg/m2 33.6 kg/m2 [facility] (S t (BMI) [Ratio] [facility] Diastolic blood 78 mm[Hg] 78 mm[Hg] [facility] (S t pressure [facility]) Systolic blood 120 mm[Hg] 120 mm[Hg] [facility] ([facility]) Body weight 208 lb 208 lb [facility] ([facility]) Body height 66 in 66 in [facility] ([facility]) Heart rate 64 /min 64 /min [facility] ([facility]) Respiratory rate 12 /min 12 /min [facility] ( [facility]) Body mass index 33.6 kg/m2 33.6 kg/m2 [facility] (S t (BMI) [Ratio[place] [facility] [place] Diastolic blood 78 mm[Hg] 78 mm[Hg] [facility]GEN (S t pressure [facility]) Systolic blood 120 mm[Hg] 120 mm[Hg] [facility] ([facility]) Body weight 208 lb 208 lb MED[facility] ([facility]) Body height 66 in 66 in [facility] ([facility]) Heart rate 80 /min 80 /min [facility] ([facility]) Respiratory rate 14 /min 14 /min [facility] ( [facility]) Body temperature 97 F 97 F [facility] ( [facility]) Inhaled oxygen 99 % 99 % [facility] ([facility]) Diastolic blood 80 mm[Hg] 80 mm[Hg] MEDGEN (S t pressure [facility]) Systolic blood 114 mm[Hg] 114 mm[Hg] [facility] ([facility]) Body height 66 in 66 in [facility] ([facility] , ) Heart rate 80 /min 80 /min [facility] ([facility] , ) Respiratory rate 14 /min 14 /min [facility] ( [facility] , ) Body temperature 97 F 97 F [facility] ( [facility]) Inhaled oxygen 99 % 99 % [facility] ([facility], ) Diastolic blood 80 mm[Hg] 80 mm[Hg] MEDGEN (S t pressure [facility] , ) Systolic blood 114 mm[Hg] 114 mm[Hg] MEDGEN ([facility] , ) Body height 66 in 66 in [facility] ([facility] , ) Heart rate 80 /min 80 /min [facility] ([facility] , ) Respiratory rate 14 /min 14 /min [facility] ( [facility] , ) Body temperature 97 F 97 F [facility] ( [facility] , ) Inhaled oxygen 99 % 99 % [facility] ([facility], ) Diastolic blood 80 mm[Hg] 80 mm[Hg] MEDGEN (S t pressure [facility] , ) Systolic blood 114 mm[Hg] 114 mm[Hg] [facility]GEN ([facility] , ) Body height 66 in 66 in [facility] ([facility] , ) Heart rate 80 /min 80 /min [facility] ([facility] , ) Respiratory rate 14 /min 14 /min [facility] ( [facility] , ) Body temperature 97 F 97 F MED[facility] ( [facility] , ) Inhaled oxygen 99 % 99 % MEDGEN ([facility], ) Diastolic blood 80 mm[Hg] 80 mm[Hg] MEDGEN (S t pressure [facility] , ) Systolic blood 114 mm[Hg] 114 mm[Hg] MEDGEN ([facility] , ) Body height 66 in 66 in MEDGEN ([facility] , ) Heart rate 80 /min 80 /min [facility] ([facility] , ) Respiratory rate 14 /min 14 /min [facility]GEN ( [facility] , ) Body temperature 97 F 97 F MED[facility] ( [facility] , ) Inhaled oxygen 99 % 99 % [facility] ([facility], ) Diastolic blood 80 mm[Hg] 80 mm[Hg] MEDGEN (S t pressure [facility] , ) Systolic blood 114 mm[Hg] 114 mm[Hg] [facility] ([facility] , ) Body height 66 in 66 in MED[facility] ([facility] , ) Heart rate 80 /min 80 /min [facility] ([facility] , ) Respiratory rate 14 /min 14 /min [facility] ( [facility] , ) Body temperature 97 F 97 F [facility] ( [facility] , ) Inhaled oxygen 99 % 99 % MEDGEN ([facility], ) Diastolic blood 80 mm[Hg] 80 mm[Hg] MEDGEN (S t pressure [facility] , ) Systolic blood 114 mm[Hg] 114 mm[Hg] [facility] ([facility] , ) Body height 66 in 66 in MED[facility] ([facility] , ) Heart rate 74 /min 74 /min [facility] ([facility] , ) Respiratory rate 14 /min 14 /min [facility] ( [facility] , ) Body temperature 98 F 98 F [facility] ( [facility] , ) Inhaled oxygen 99 % 99 % MEDGEN ([facility], ) Heart rate 74 /min 74 /min [facility] ([facility] , ) Respiratory rate 14 /min 14 /min [facility] ( [facility] , ) Body temperature 98 F 98 F MEDGEN ( [facility] , ) Inhaled oxygen 99 % 99 % MEDGEN ([facility], ) Body mass index -1 kg/m2 -1 kg/m2 MEDGEN (S t (BMI) [Ratio] [facility], ) Diastolic blood 82 mm[Hg] 82 mm[Hg] MEDGEN (S t pressure [facility] , ) Systolic blood 126 mm[Hg] 126 mm[Hg] [facility] ([facility] , ) Body height 66 in 66 in MEDGEN ([facility] , ) Heart rate 74 /min 74 /min [facility] ([facility] , ) Respiratory rate 14 /min 14 /min [facility] ( [facility]) Body temperature 98 F 98 F MEDGEN ( [facility]) Inhaled oxygen 99 % 99 % MEDGEN ([facility], ) Body mass index -1 kg/m2 -1 kg/m2 MEDGEN (S t (BMI) [Ratio] [facility], ) Diastolic blood 82 mm[Hg] 82 mm[Hg] MEDGEN (S t pressure [facility]) Systolic blood 126 mm[Hg] 126 mm[Hg] MEDGEN ([facility]) Body height 66 in 66 in MEDGEN ([facility]) Body mass index -1 kg/m2 -1 kg/m2 MEDGEN (S t (BMI) [Ratio] [facility], ) Diastolic blood 82 mm[Hg] 82 mm[Hg] MEDGEN (S t [facility]) Systolic blood 126 mm[Hg] 126 mm[Hg] MEDGEN ([facility] [place] , ) Body height 66 in 66 in MEDGEN ([facility]) Heart rate 74 /min 74 /min MEDGEN ([facility]) Respiratory rate 14 /min 14 /min MEDGEN ( [facility]) Body temperature 98 F 98 F MEDGEN ( [facility]) Inhaled oxygen 99 % 99 % MEDGEN ([facility], ) Body mass index -1 kg/m2 -1 kg/m2 MEDGEN (S t (BMI) [Ratio] [facility] [place], ) Diastolic blood 82 mm[Hg] 82 mm[Hg] MEDGEN (S t pressure [facility]) Systolic blood 126 mm[Hg] 126 mm[Hg] MEDGEN ([facility]) Body height 66 in 66 in MEDGEN ([facility]) Heart rate 74 /min 74 /min MEDGEN ([facility]) Respiratory rate 14 /min 14 /min MEDGEN ( [facility]) Body temperature 98 F 98 F MEDGEN ( [facility]) Inhaled oxygen 99 % 99 % MEDGEN ([facility], ) Body mass index -1 kg/m2 -1 kg/m2 MEDGEN (S t (BMI) [Ratio] [facility] [place], ) Diastolic blood 82 mm[Hg] 82 mm[Hg] MEDGEN (S t pressure [facility] [place] , ) Systolic blood 126 mm[Hg] 126 mm[Hg] MEDGEN ([facility] , ) Body height 66 in 66 in MEDGEN ([facility]) Heart rate 74 /min 74 /min MEDGEN ([facility] [place] , ) Respiratory rate 14 /min 14 /min MEDGEN ( [facility] , ) Body temperature 98 F 98 F MEDGEN ( [facility] , ) Inhaled oxygen 99 % 99 % MEDGEN ([facility], ) Body mass index -1 kg/m2 -1 kg/m2 MEDGEN (S t (BMI) [Ratio] [facility] [place], ) Diastolic blood 82 mm[Hg] 82 mm[Hg] MEDGEN (S t pressure [facility] [place] , ) Systolic blood 126 mm[Hg] 126 mm[Hg] MEDGEN ([facility] [place] , ) Body height 66 in 66 in MEDGEN ([facility] , ) Heart rate 74 /min 74 /min MEDGEN ([facility] , ) Respiratory rate 14 /min 14 /min MEDGEN ( [facility] , ) Body temperature 98 F 98 F MEDGEN ( [facility] , ) Inhaled oxygen 99 % 99 % MEDGEN ([facility], ) Body mass index -1 kg/m2 -1 kg/m2 MEDGEN (S t (BMI) [Ratio] [facility] [place], ) Diastolic blood 82 mm[Hg] 82 mm[Hg] MEDGEN (S t pressure [facility] [place] , ) Systolic blood 126 mm[Hg] 126 mm[Hg] MEDGEN ([facility] [place] , ) Body height 66 in 66 in MEDGEN ([facility] , ) Heart rate 74 /min 74 /min MEDGEN ([facility] , ) Respiratory rate 14 /min 14 /min MEDGEN ( [facility] , ) Body temperature 98 F 98 F MEDGEN ( [facility]) Inhaled oxygen 99 % 99 % MEDGEN ([facility], ) Body mass index -1 kg/m2 -1 kg/m2 MEDGEN (S t (BMI) [Ratio] [facility] [place], ) Diastolic blood 82 mm[Hg] 82 mm[Hg] MEDGEN (S t pressure [facility]) Systolic blood 126 mm[Hg] 126 mm[Hg] MEDGEN ([facility]) Body height 66 in 66 in MEDGEN ([facility]) Heart rate 79 /min 79 /min MEDGEN ([facility]) Inhaled oxygen 99 % 99 % MEDGEN ([facility], ) Body mass index 34.1 kg/m2 34.1 kg/m2 MEDGEN (S t (BMI) [Ratio] [facility] [place], ) Diastolic blood 82 mm[Hg] 82 mm[Hg] MEDGEN (S t pressure [facility]) Systolic blood 124 mm[Hg] 124 mm[Hg] MEDGEN ([facility]) Body weight 211 lb 211 lb MEDGEN ([facility]) Body height 66 in 66 in MEDGEN ([facility]) Heart rate 79 /min 79 /min MEDGEN ([facility]) Inhaled oxygen 99 % 99 % MEDGEN ([facility], ) Body mass index 34.1 kg/m2 34.1 kg/m2 MEDGEN (S t (BMI) [Ratio] [facility] [place], ) Diastolic blood 82 mm[Hg] 82 mm[Hg] MEDGEN (S t pressure [facility]) Systolic blood 124 mm[Hg] 124 mm[Hg] MEDGEN ([facility]) Body weight 211 lb 211 lb MEDGEN ([facility]) Body height 66 in 66 in MEDGEN ([facility]) Heart rate 79 /min 79 /min MEDGEN ([facility]) Inhaled oxygen 99 % 99 % MEDGEN ([facility], ) Body mass index 34.1 kg/m2 34.1 kg/m2 MEDGEN (S t (BMI) [Ratio] [facility] [place], ) Diastolic blood 82 mm[Hg] 82 mm[Hg] MEDGEN (S t pressure [facility]) Systolic blood 124 mm[Hg] 124 mm[Hg] MEDGEN ([facility]) Body weight 211 lb 211 lb MEDGEN ([facility]) Body height 66 in 66 in MEDGEN ([facility]) Heart rate 79 /min 79 /min MEDGEN ([facility]) Inhaled oxygen 99 % 99 % MEDGEN ([facility]) Body mass index 34.1 kg/m2 34.1 kg/m2 MEDGEN (S t (BMI) [Ratio[place] [facility] Diastolic blood 82 mm[Hg] 82 mm[Hg] MEDGEN ([facility]) Systolic blood 124 mm[Hg] 124 mm[Hg] MEDGEN ([facility]) Body weight 211 lb 211 lb MEDGEN ([facility]) Body height 66 in 66 in MEDGEN ([facility]) Heart rate 79 /min 79 /min MEDGEN ([facility]) Inhaled oxygen 99 % 99 % MEDGEN ([facility]) Body mass index 34.1 kg/m2 34.1 kg/m2 MEDGEN (S t (BMI) [Ratio] [facility] [place] Diastolic blood 82 mm[Hg] 82 mm[Hg] MEDGEN ([facility]) Systolic blood 124 mm[Hg] 124 mm[Hg] MEDGEN ([facility]) Body weight 211 lb 211 lb MEDGEN ([facility]) Body height 66 in 66 in MEDGEN ([facility]) Heart rate 79 /min 79 /min MEDGEN ([facility]) Inhaled oxygen 99 % 99 % MEDGEN ([facility]) Body mass index 34.1 kg/m2 34.1 kg/m2 MEDGEN (S t (BMI) [Ratio] [facility] [place] Diastolic blood 82 mm[Hg] 82 mm[Hg] MEDGEN ([facility]) Systolic blood 124 mm[Hg] 124 mm[Hg] MEDGEN ([facility]) Body weight 211 lb 211 lb MEDGEN ([facility]) Body height 66 in 66 in MEDGEN ([facility]) Heart rate 79 /min 79 /min MEDGEN ([facility]) Inhaled oxygen 99 % 99 % MEDGEN ([facility]) Body mass index 34.1 kg/m2 34.1 kg/m2 MEDGEN (S t (BMI) [Ratio] [facility] [place] Diastolic blood 82 mm[Hg] 82 mm[Hg] MEDGEN (S t pressure [facility]) Systolic blood 124 mm[Hg] 124 mm[Hg] MEDGEN ([facility]) Body weight 211 lb 211 lb MEDGEN ([facility]) Body height 66 in 66 in MEDGEN ([facility]) Heart rate 79 /min 79 /min MEDGEN ([facility]) Inhaled oxygen 99 % 99 % MEDGEN ([facility], ) Body mass index 34.1 kg/m2 34.1 kg/m2 MEDGEN (S t (BMI) [Ratio] [facility] [place], ) Diastolic blood 82 mm[Hg] 82 mm[Hg] MEDGEN (S t [facility]) Systolic blood 124 mm[Hg] 124 mm[Hg] MEDGEN ([facility]) Body weight 211 lb 211 lb MEDGEN ([facility]) Body height 66 in 66 in MEDGEN ([facility]) Heart rate 75 /min 75 /min MEDGEN ([facility]) Respiratory rate 14 /min 14 /min MEDGEN ( [facility]) Diastolic blood 88 mm[Hg] 88 mm[Hg] MEDGEN (S t [facility]) Systolic blood 129 mm[Hg] 129 mm[Hg] MEDGEN ([facility]) Heart rate 75 /min 75 /min MEDGEN ([facility]) Respiratory rate 14 /min 14 /min MEDGEN ( [facility]) Diastolic blood 88 mm[Hg] 88 mm[Hg] MEDGEN (S t pressure [facility]) Systolic blood 129 mm[Hg] 129 mm[Hg] MEDGEN [...] mm[Hg] 88 mm[Hg] MEDGEN (S t pressure [facility]) Systolic blood 129 mm[Hg] 129 mm[Hg] MEDGEN (St [facility]) Heart rate 75 /min 75 /min MEDGEN ([facility]) Respiratory rate 14 /min 14 /min MEDGEN ( [facility] , ) Diastolic blood 88 mm[Hg] 88 mm[Hg] MEDGEN (S t [facility])
[2019-12-06 13:47] VITALS: BP 122/67; PULSE 76
[2019-12-06 13:48] VITALS: TEMP 97.6
--- NOTE | 2019-12-08 17:58 | PATH ---
Surgical Pathology Report Patient Name: PENELOPE GRAYSON Med. Rec. #: [id number] /Age/Gender: 1985 (Age: 34) / M Account: [id number] Location: [facility] Taken: 12/06/2019 Received: 12/06/2019 Reported: 12/08/2019 Physicians: Elba Pastrana M.D. Specimen(s) Received A: SECOND PORTION DUODENUM B: ANTRUM C: GE JUNCTION Clinical History Abdominal pain Postoperative diagnosis: Gastritis Final Diagnosis A. SECOND PORTION OF DUODENUM, BIOPSY: DUODENAL MUCOSA WITH NO SIGNIFICANT PATHOLOGIC CHANGE. NO HISTOLOGIC EVIDENCE OF INTRAEPITHELIAL LYMPHOCYTOSIS. B. ANTRUM, BIOPSY: GASTRIC MUCOSA WITH CHRONIC GASTRITIS. IMMUNOSTAIN FOR H. PYLORI IS NEGATIVE. NEGATIVE FOR INTESTINAL METAPLASIA. C. GE JUNCTION, BIOPSY GASTROESOPHAGEAL JUNCTION MUCOSA WITH CHANGES CONSISTENT WITH REFLUX ESOPHAGITIS. NEGATIVE FOR INTESTINAL METAPLASIA. Electronically Signed Michael Ruff M.D. Gross Description A. Received in formalin, labeled "biopsy second portion of duodenum" is a tolentino, irregular portion of soft tissue measuring 0.3 cm. in greatest dimension. The specimen is submitted in toto in one cassette. B. Received in formalin, labeled "biopsy gastric antrum" is a tolentino, irregular portion of soft tissue measuring 0.4 cm. in greatest dimension. The specimen is submitted in toto in one cassette. C. Received in formalin, labeled "biopsy GE junction" is a tolentino, irregular portion of soft tissue measuring 0.2 cm. in greatest dimension. The specimen is submitted in toto in one cassette. 12/07/2019 saudi12/07/2019
== END 2019-12-06 13:48 | disposition home or self-care (01) ==
LOC: FASU-ENDO 11:21
PROVIDERS: ATTEND Internal Medicine Gastroenterology
PROC: 0DB68ZX Excision of Stomach, Via Natural or Artificial Opening Endoscopic, Diagnostic (ICD-10-PCS; 2019-12-06)
PROC: 0DB48ZX Excision of Esophagogastric Junction, Via Natural or Artificial Opening Endoscopic, Diagnostic (ICD-10-PCS; 2019-12-06)
PROC: 0DB98ZX Excision of Duodenum, Via Natural or Artificial Opening Endoscopic, Diagnostic (ICD-10-PCS; principal; 2019-12-06 12:37)
DX: K29.50 Unspecified chronic gastritis without bleeding (principal); K21.0 Gastro-esophageal reflux disease with esophagitis; R10.13 Epigastric pain
CPT/HCPCS: 88305-TC; 88342-TC

== ENCOUNTER 2020-01-22 05:13 | Day surgery (SDC) | payer OTHER ==
[2020-01-19 10:25] VITALS: BMI 33.4
[2020-01-22] MEDS ORDERED: MIDAZOLAM HCL 2 MG/2 ML SINGLE DOSE VIAL ONE ×2 (16:21)
[2020-01-22 18:40] VITALS: BP 130/80; PULSE 74; TEMP 97
== END 2020-01-22 18:45 | disposition home or self-care (01) ==
LOC: JASU-SURG 05:13
PROVIDERS: ATTEND Urology
PROC: 0TF4XZZ Fragmentation in Left Kidney Pelvis, External Approach (ICD-10-PCS; principal; 2020-01-22 14:00)
DX: N20.0 Calculus of kidney (principal)

== ENCOUNTER 2024-01-08 14:26 | Emergency (ER) | payer OTHER ==
[2024-01-08 14:33] VITALS: BP 138/87; PULSE 98; RESP 18; TEMP 98.3; BMI 28.8
[2024-01-08] MEDS ORDERED: DEXAMETHASONE SOD PHOSPHATE 10 MG/1 ML VIAL ONE (16:37)
[2024-01-08] MEDS ORDERED: FAMOTIDINE 20 MG/50 ML IVPB 20 MG/50 ML MG IVPB ONE (16:37)
[2024-01-08] MEDS: DEXAMETHASONE SOD PHOSPHATE 10 MG/1 ML VIAL IVPUSH ONE (17:09)
[2024-01-08] MEDS: FAMOTIDINE 20 MG/50 ML IVPB 20 MG/50 ML MG IVPB ONE (17:09)
== END 2024-01-08 20:41 | disposition home or self-care (01) ==
LOC: JER 14:26
PROC: 3E033GC Introduction of Other Therapeutic Substance into Peripheral Vein, Percutaneous Approach (ICD-10-PCS; principal; 2024-01-08)
PROC: 3E033GC Introduction of Other Therapeutic Substance into Peripheral Vein, Percutaneous Approach (ICD-10-PCS; 2024-01-08)
PROC: 3E033GC Introduction of Other Therapeutic Substance into Peripheral Vein, Percutaneous Approach (ICD-10-PCS; 2024-01-08)
DX: R21 Rash and other nonspecific skin eruption (principal); R20.2 Paresthesia of skin; R06.02 Shortness of breath; L29.9 Pruritus, unspecified
CPT/HCPCS: 99284-25; J1100

== ENCOUNTER 2024-01-10 17:02 | Emergency (ER) | payer OTHER ==
[2024-01-10 17:12] VITALS: TEMP 98.2; BMI 29.0
[2024-01-10 20:41] VITALS: BP 116/67; PULSE 67; RESP 20
== END 2024-01-10 20:41 | disposition home or self-care (01) ==
LOC: JERFT 17:02 → JER 17:02 → JERFT 20:41
PROC: 3E023GC Introduction of Other Therapeutic Substance into Muscle, Percutaneous Approach (ICD-10-PCS; principal; 2024-01-10)
DX: L50.0 Allergic urticaria (principal); T78.1XXA Other adverse food reactions, not elsewhere classified, initial encounter; R21 Rash and other nonspecific skin eruption; L29.9 Pruritus, unspecified
CPT/HCPCS: 99284-25